=== PATIENT | male | born 1955 | race American Indian/Alaskan Native ===

== ENCOUNTER 2016-07-19 03:38 | Inpatient (IN) | payer MEDICARE ==
[2016-07-19] MEDS ORDERED: MORPHINE IV ONE (04:50)
[2016-07-19] MEDS ORDERED: BABY ASPIRIN PO ONE (04:51)
[2016-07-19] MEDS ORDERED: PROVENTIL IH ONE (04:52)
[2016-07-19] MEDS ORDERED: ATROVENT IH ONE ×2 (04:54)
[2016-07-19 05:18] LABS: Hematocrit 35.4 % (35.5-45.6); Hemoglobin 11.7 gm/dl (11.8-15.2); Mean Corpuscular HGB Conc 33 % (32-34); Mean Corpuscular Hemoglobin 28 pg (28-32); Mean Corpuscular Volume 86 fl (84-94); Platelet Count 128 K/mm3 (140-440); Red Blood Count 4.11 M/mm3 (3.65-5.03); Red Cell Distribution Width 19.5 % (13.2-15.2); White Blood Count 4.9 K/mm3 (4.5-11.0)
[2016-07-19 05:34] LABS: INR 3.99 (0.87-1.13); Partial Thromboplastin Time 44.3 Sec. (24.2-36.6)
[2016-07-19 05:35] LABS: Creatine Kinase MB 1.1 ng/mL (0.0-4.0)
[2016-07-19 05:37] LABS: Anion Gap 17 mmol/L; BUN/Creatinine Ratio 9.09; Blood Urea Nitrogen 10 mg/dL (9-20); Calcium 7.9 mg/dL (8.4-10.2); Carbon Dioxide 26 mmol/L (22-30); Chloride 94.6 mmol/L (98-107); Glucose 108 mg/dL (75-100); Potassium 3.3 mmol/L (3.6-5.0); Sodium 134 mmol/L (137-145)
[2016-07-19] MEDS ORDERED: LASIX IV ONE (06:46)
[2016-07-19] MEDS ORDERED: MAGNESIUM SULFATE 2GM/50ML 50 ML IV ONE (06:46)
[2016-07-19] MEDS ORDERED: NITROSTAT SL ONE (06:50)
[2016-07-19] MEDS ORDERED: SUBLIMAZE IV ONE (06:50)
--- NOTE | 2016-07-19 06:50 | Emergency Department Report ---
HPI - General Chief Complaint: Dyspnea/Respdistress Time Seen by Provider: 07/19/16 06:22 - HPI HPI: The patient is a 61-year-old male with a significant history of STEMI, COPD, and CHF with defibrillator placement, who presents for evaluation of chest pain or dyspnea. The patient reports constant and severe dyspnea since last night at 11 PM, exacerbated with lying flat or attempted physical activity, and associated with pressure-like midsternal chest pain, 10 out of 10 in severity, also constant since approximately 6 hours prior to my evaluation. The patient denies fever, productive cough, syncope, hemoptysis, unilateral leg swelling, recent immobilization, recent cancer. ED Past Medical Hx - Past Medical History Hx Hypertension: Yes Hx Heart Attack/AMI: Yes (2011) Hx Congestive Heart Failure: Yes Hx Diabetes: Yes Hx Deep Vein Thrombosis: Yes Hx Pulmonary Embolism: Yes Hx Liver Disease: No Hx Renal Disease: No Hx Arthritis: Yes Hx Headaches / Migraines: Yes Hx Seizures: No Hx Asthma: Yes Hx COPD: Yes Hx HIV: No Additional medical history: a-fib. HLD. GOUT. ICD - Surgical History Hx Coronary Stent: Yes (2012) Hx Open Heart Surgery: No Hx Pacemaker: Yes Hx Internal Defibrillator: Yes Hx Cholecystectomy: No Hx Appendectomy: No Hx Breast Surgery: No Additional Surgical History: spinal surgery - Social History Smoking Status: Never Smoker Substance Use Type: None - Medications Home Medications: Home Medications Medication Instructions Recorded Confirmed Last Taken Type Albuterol *Only Ed* [Proventil 2.5 mg IH Q4H PRN #1 nebu 08/15/14 01/27/16 Rx 0.5% NEBS] 2.5 MG Allopurinol [Zyloprim] 300 mg PO QDAY #30 tablet 08/15/14 01/27/16 12/09/15 Rx 300 MG Furosemide [Lasix] 40 mg PO DAILY #20 tablet 08/15/14 01/27/16 12/09/15 Rx 40 MG Ipratropium/Albuterol Sulfate 1 ampul IH TIDRT #1 ampul.neb 08/15/14 01/27/16 Rx [Duoneb 0.5 mg-3 mg/3 ml Soln] 1 AMPUL Digoxin 250 mcg PO DAILY 12/31/14 01/27/16 12/09/15 History 250 MCG Fluticasone/Salmeterol [Advair 1 puff IH BID #1 disk.w.dev 02/10/15 01/27/16 Rx Diskus 500-50 mcg] 1 PUFF Carvedilol [Coreg] 25 mg PO BID 03/13/15 01/27/16 12/09/15 History 25 MG Losartan [Cozaar] 100 mg PO QDAY 03/13/15 01/27/16 12/09/15 History 100 MG hydrALAZINE [Apresoline TAB] 25 mg PO BID 03/13/15 01/27/16 12/09/15 History 25 MG Prednisone [predniSONE 10 mg 10 mg PO DAILY 01/27/16 01/27/16 Unknown History (6-Day Pack, 21 Tabs)] Rivaroxaban [Xarelto] 20 mg PO QDAY 01/27/16 01/27/16 Unknown History ISOSORBIDE MONOnitrate [Imdur ER] 60 mg PO QDAY #30 tab.er.24h 02/01/16 Unknown Rx oxyCODONE /ACETAMINOPHEN [Percocet 1 tab PO Q12H PRN #10 tablet 02/01/16 Unknown Rx 5/325 mg] traMADol [Ultram 50 MG tab] 50 mg PO Q6HR PRN #20 tablet 05/21/16 Unknown Rx ED Review of Systems ROS: Stated complaint: KAYLAN Other details as noted in HPI Constitutional: denies: fever ENT: denies: throat or neck pain Respiratory: reports cough, shortness of breath Cardiovascular: reports chest pain Endocrine: denies unexplained weight loss or gain Gastrointestinal: denies: abdominal pain, nausea Genitourinary: denies: dysuria Musculoskeletal: denies: leg swelling Skin: denies: rash Neurological: denies: headache Hematological/Lymphatic: denies: easy bleeding or easy bruising Psych: denies sadness or hopelessness Physical Exam - Physical Exam Vital Signs: Vital Signs 07/19/16 07/19/16 07/19/16 04:16 05:01 06:08 Temperature 99.1 F Pulse Rate 90 Pulse Rate [ 70 Throughout] Respiratory 19 Rate Respiratory 20 Rate [ Throughout] Blood Pressure 145/82 O2 Sat by Pulse 93 Oximetry 07/19/16 06:09 Temperature Pulse Rate Pulse Rate [ 73 Throughout] Respiratory Rate Respiratory 20 Rate [ Throughout] Blood Pressure O2 Sat by Pulse Oximetry Physical Exam: General: well-nourished, well-developed, no acute distress Head: Normocephalic, atraumatic Eyes: normal sclera ENT: Mucous membranes are pink and moist Neck: trachea midline, neck supple, No neck stiffness, no cervical adenopathy Respiratory: Diminished breath sounds and wheezing present throughout lung ortega, crackles present to buy basilar lung ortega, mild costal retractions, not in respiratory distress at this time Cardio: S1 and S2 present, no murmurs, rubs, gallops, capillary refill is brisk Abdomen: Normoactive bowel sounds, soft abdomen, no rigidity, no guarding or rebound tenderness Musc: 1+ pitting edema of bilateral legs present Skin: No rash Neuro: no facial drooping, normal speech Psych: Normal affect ED Course Vital Signs 07/19/16 07/19/16 07/19/16 04:16 05:01 06:08 Temperature 99.1 F Pulse Rate 90 Pulse Rate [ 70 Throughout] Respiratory 19 Rate Respiratory 20 Rate [ Throughout] Blood Pressure 145/82 O2 Sat by Pulse 93 Oximetry 07/19/16 06:09 Temperature Pulse Rate Pulse Rate [ 73 Throughout] Respiratory Rate Respiratory 20 Rate [ Throughout] Blood Pressure O2 Sat by Pulse Oximetry ED Medical Decision Making - Lab Data Result diagrams: 07/19/16 04:52 07/19/16 04:52 - Medical Decision Making The patient was seen and examined by myself. The patient is placed on a cardiac tech and continuous pulse ox. On initial evaluation, the patient was found to be in no distress. Evaluation orders were placed. The patient is given a breathing treatment, IV site measuring, and IV magnesium for txt of COPD. the patient is given IV fentanyl for treatment of his chest pain. Chest x -ray exhibits cardiomegaly and mild pulmonary vessel congestion, and otherwise is negative for focal consolidation, pneumothorax, or other acute emergent cardio pulmonary disease process at this time. Lab results reveals elevated PT/ INR greater than 3, mild hypokalemia at 3.3, elevated BNP 2734, and otherwise labs are grossly not concerning. The patient is given IV Lasix for treatment of his acute on chronic CHF exacerbation. The on-call hospitalist service was contacted. They agreed to admit the patient for further treatment and close monitoring. The ED admit order was placed. The patient was admitted in guarded condition. Critical care attestation.: If time is entered above; I have spent that time in minutes in the direct care of this critically ill patient, excluding procedure time. ED Disposition Clinical Impression: Acute on chronic systolic CHF (congestive heart failure), Acute exacerbation of chronic obstructive pulmonary disease, Elevated INR, Hypokalemia Disposition: OP ADMITTED IP TO THIS HOSP Is pt being admited?: Yes Does the pt Need Aspirin: Yes Condition: Stable Instructions: Chronic Obstructive Pulmonary Disease (ED) Referrals: PRIMARY CARE, [Primary Care Provider] - 3-5 Days Time of Disposition: 06:39
[2016-07-19 07:14] LABS: Basophils % (Manual) 0 % (0.0-1.8); Blastocytes % (Manual) 0 %; Eosinophils % (Manual) 0 % (0.0-4.3)
[2016-07-19 07:15] LABS: Anisocytosis 1+; Diff Status Complete; Platelet Estimate Appears Decreased
--- NOTE | 2016-07-19 07:54 | Admit Criteria Form ---
Admission Criteria Documentation: HEART FAILURE: COMMON COMPLICATIONS Clinical Indications for Inpatient Care (Place 'X' for any and all applicable criteria): Ongoing inpatient care may be indicated for heart failure with ANY ONE of the following (1)(2)(3)(4)(5): [ ]I. Ongoing need for care for primary condition requiring frequent therapy adjustments because of changes in cardiac function (eg, drug dosage changes for drugs that are renally metabolized) [ ]II. New-onset heart failure [ ]III. Heart failure with decreased urine output not responsive to attempts to optimize volume status [ ]IV. Acute cardiac ischemia causing or associated with failure [X ]V. Complications of heart failure, including ANY ONE of the following: [ ]a) Pericardial effusion [ ]b) Symptomatic pleural effusion [ ]c) O2 saturation <90% or PO2 < 60 mm Hg (8.0 kPa) on room air or require baseline supplemental O2 [ ]d) Tachypnea [ X]e) Dyspnea [ ]f) Syncope [ ]g) Change in mental status [ ]h) Acute renal insufficiency that is severe (reduction of more than 50% in estimated glomerular filtration rate from baseline) or progressive reduction of more than 25% in estimated glomerular filtration rate from baseline, with creatinine continuing to rise) [ ]i) Hemodynamic instability [ ]j) Anasarca [ ]k) Clinically significant metabolic abnormalities due to heart failure (eg, new-onset metabolic acidosis) Extended stay beyond goal length of stay for primary condition may be needed until ALL of the following are present(1)(3): [ ]a) Stable and effective diuretic regimen established (or patient on stable dialysis regimen if in chronic renal failure) [ ]b) Breathing comfortably at rest [ ]c) Saturation of arterial oxygen greater than 90% or at acceptable baseline [ ]d) Pulmonary edema absent or improved [ ]e) Hemodynamic stability [ ]f) Volume status acceptable on oral medication [ ]g) Peripheral or sacral edema absent or improved [ ]h) Renal function stable and manageable at a lower level of care [ ]i) Complications (eg, pleural effusion) resolved or manageable at a lower level of care [ ]j) Patient or caregiver has received written discharge instructions or educational material addressing activity level, diet, discharge medications, follow-up appointment, weight monitoring, and what to do if symptoms worsen The original [email or web address] content created by [employer] has been revised. The portions of the content which have been revised are identified through the use of italic text or in bold, and [facility] has neither reviewed nor approved the modified material.All other unmodified content is copyright [facility]. Please see references footnoted in the original [facility] edition 2016 Admission Criteria Met: Yes
--- NOTE | 2016-07-19 08:11 | History and Physical Report ---
History of Present Illness Date of examination: 07/19/16 Date of admission: 07/19/16 Chief complaint: Worsening shortness of breath and chest pain 2-3 days History of present illness: Very pleasant 61-year-old -Turk[place] male patient well known to our services multiple admissions in the past it significant past medical history of coronary artery disease COPD congestive heart failure status post permanent pacemaker follows with [facility] presented to the emergency room with worsening shortness of breath and chest pain of 2-3 days duration Complains of mild orthopnea denies paroxysmal nocturnal dyspnea, grates chest pain between 4-5/10 at its peak at the time of my evaluation patient denies chest pain Patient claims complains of this medication and diet Recently went to Dr. Bruce Serrano who recommended interrogation of ICD on August 04 First set of cardiac enzymes negative,Is elevated proBNP Past History Past Medical History: CAD, COPD, DVT (history of DVT and pulmonary embolism), heart failure (systolic dysfunction), other (history of DVT) Past Surgical History: Other (status post ICD) Social history: lives with family, full code. denies: smoking, alcohol abuse, prescription drug abuse Family history: hypertension Medications and Allergies Allergies Allergy/AdvReac Type Severity Reaction Status Date / Time Penicillins Allergy Unknown Verified 02/07/14 22:58 Home Medications Medication Instructions Recorded Confirmed Last Taken Type Albuterol *Only Ed* [Proventil 2.5 mg IH Q4H PRN #1 nebu 08/15/14 01/27/16 Rx 0.5% NEBS] 2.5 MG Allopurinol [Zyloprim] 300 mg PO QDAY #30 tablet 08/15/14 01/27/16 12/09/15 Rx 300 MG Furosemide [Lasix] 40 mg PO DAILY #20 tablet 08/15/14 01/27/16 12/09/15 Rx 40 MG Ipratropium/Albuterol Sulfate 1 ampul IH TIDRT #1 ampul.neb 08/15/14 01/27/16 Rx [Duoneb 0.5 mg-3 mg/3 ml Soln] 1 AMPUL Digoxin 250 mcg PO DAILY 12/31/14 01/27/16 12/09/15 History 250 MCG Fluticasone/Salmeterol [Advair 1 puff IH BID #1 disk.w.dev 02/10/15 01/27/16 Rx Diskus 500-50 mcg] 1 PUFF Carvedilol [Coreg] 25 mg PO BID 03/13/15 01/27/16 12/09/15 History 25 MG Losartan [Cozaar] 100 mg PO QDAY 03/13/15 01/27/16 12/09/15 History 100 MG hydrALAZINE [Apresoline TAB] 25 mg PO BID 03/13/15 01/27/16 12/09/15 History 25 MG Prednisone [predniSONE 10 mg 10 mg PO DAILY 01/27/16 01/27/16 Unknown History (6-Day Pack, 21 Tabs)] Rivaroxaban [Xarelto] 20 mg PO QDAY 01/27/16 01/27/16 Unknown History ISOSORBIDE MONOnitrate [Imdur ER] 60 mg PO QDAY #30 tab.er.24h 02/01/16 Unknown Rx oxyCODONE /ACETAMINOPHEN [Percocet 1 tab PO Q12H PRN #10 tablet 02/01/16 Unknown Rx 5/325 mg] traMADol [Ultram 50 MG tab] 50 mg PO Q6HR PRN #20 tablet 05/21/16 Unknown Rx Review of Systems Constitutional: no weight loss, no weight gain, no fever, no chills Ears, nose, mouth and throat: no nasal congestion, no nasal discharge Cardiovascular: chest pain, orthopnea, shortness of breath, no palpitations, no paroxysmal nocturnal dyspnea Respiratory: shortness of breath, no cough with sputum Gastrointestinal: no abdominal pain, no nausea, no vomiting Musculoskeletal: no myalgias, no arthritis Integumentary: no rash, no lesions Neurological: weakness, no seizures, no syncope Psychiatric: no anxiety, no depression Endocrine: no cold intolerance, no heat intolerance Hematologic/Lymphatic: no easy bruising, no easy bleeding Allergic/Immunologic: no urticaria, no allergic rhinitis Exam - Constitutional Vitals: Temp Pulse Resp BP Pulse Ox 99.1 F 73 20 145/82 93 07/19/16 04:16 07/19/16 06:09 07/19/16 06:09 07/19/16 04:16 07/19/16 04:16 General appearance: Present: no acute distress, well-nourished - EENT Eyes: Present: PERRL, EOM intact - Neck Neck: Present: supple, normal ROM - Respiratory Respiratory effort: normal Respiratory: bilateral: diminished, rales, negative: rhonchi, wheezing - Cardiovascular Rhythm: regular Heart Sounds: Present: S1 & S2 - Extremities Extremities: no ischemia, pulses intact, pulses symmetrical Extremity abnormal: edema Peripheral Pulses: within normal limits - Abdominal General gastrointestinal: Present: soft, non-tender, non-distended, normal bowel sounds - Integumentary Integumentary: Present: clear, warm - Musculoskeletal Musculoskeletal: strength equal bilaterally - Psychiatric Psychiatric: appropriate mood/affect, cooperative - Neurologic Neurologic: CNII-XII intact, moves all extremities Results - Labs CBC & Chem 7: 07/19/16 04:52 07/19/16 04:52 Labs: Abnormal lab results 07/19/16 07/19/16 07/19/16 Range/Units 04:52 04:52 04:52 Hgb 11.7 L (11.8-15.2) gm/dl Hct 35.4 L (35.5-45.6) % RDW 19.5 H (13.2-15.2) % Plt Count 128 L (140-440) K/mm3 Seg Neuts % (Manual) 90.0 H (40.0-70.0) % Lymphocytes % (Manual) 3.0 L (13.4-35.0) % Lymphocytes # (Manual) 0.1 L (1.2-5.4) K/mm3 PT 39.3 H (12.2-14.9) Sec. INR 3.99 H (0.87-1.13) APTT 44.3 H (24.2-36.6) Sec. Sodium 134 L (137-145) mmol/L Potassium 3.3 L (3.6-5.0) mmol/L Chloride 94.6 L (98-107) mmol/L Glucose 108 H (75-100) mg/dL Calcium 7.9 L (8.4-10.2) mg/dL NT-Pro-B Natriuret Pep (0-900) pg/mL 07/19/16 Range/Units 04:52 Hgb (11.8-15.2) gm/dl Hct (35.5-45.6) % RDW (13.2-15.2) % Plt Count (140-440) K/mm3 Seg Neuts % (Manual) (40.0-70.0) % Lymphocytes % (Manual) (13.4-35.0) % Lymphocytes # (Manual) (1.2-5.4) K/mm3 PT (12.2-14.9) Sec. INR (0.87-1.13) APTT (24.2-36.6) Sec. Sodium (137-145) mmol/L Potassium (3.6-5.0) mmol/L Chloride (98-107) mmol/L Glucose (75-100) mg/dL Calcium (8.4-10.2) mg/dL NT-Pro-B Natriuret Pep 2734 H (0-900) pg/mL Assessment and Plan --Acute on chronic systolic congestive heart failure Manage with IV diuretics, beta blockers, daniella inhibitors, nitrates Input-output monitoring, cardiology evaluation if no improvement about management --Atypical chest pain Probably secondary to exacerbation of congestive heart failure, patient had recent negative heart cath Closely monitor, consider cardiology evaluation if needed, resume appropriate home cardiac medications --Status post ICD Functional, patient has an appointment for interrogation in the office --History of atrial fibrillation Rate controlled continue beta blockers and digoxin On chronic anticoagulation with his --Hypokalemia Replenish per protocol and monitor levels check magnesium --Patient has supratherapeutic INR No evidence of external bleeding closely monitor Hold Xeralto and resume when INR is therapeutic --History of COPD; Well compensated, oxygen, nebulizers and supportive care --DVT prophylaxis SCDs, patient is already on Xarelto --CODE STATUS; full code Consider cardiology evaluation if no improvement Plan of care discussed with the patient his nurse Medical records reviewed Disposition possible discharge in 1-2 days if stable Outpatient follow-up with Dr. Bruce Serrano for ICD interrogation[patient already has an appointment]
[2016-07-19 08:28] LABS: Urine Drugs of Abuse Note Disclamer
[2016-07-19] MEDS ORDERED: PROVENTIL IH PRN (08:56)
[2016-07-19 09:08] LABS: Bacteria,Urine 1+ /HPF (Negative); Bilirubin,Urine NEG (Negative); Blood,Urine SM (Negative); Ketones,Urine NEG (Negative); Leukocyte Esterase,Urine MOD (Negative); Mucus,Urine FEW /HPF; Nitrite,Urine NEG (Negative)
[2016-07-19] MEDS ORDERED: COREG ONE (09:54)
[2016-07-19] MEDS ORDERED: NON-FORMULARY (Losartan [Cozaar] 100 MG) PO SCH (10:00)
[2016-07-19] MEDS: LANOXIN PO SCH (10:01)
[2016-07-19] MEDS: APRESOLINE PO SCH ×2 (10:01→21:08)
[2016-07-19] MEDS: COREG PO SCH ×2 (10:01→21:07)
--- NOTE | 2016-07-19 11:10 | XRay Report ---
PORTABLE CHEST: INDICATION: Shortness of breath. COMPARISON: 05/19/2016 FINDINGS: Portable, frontal chest radiographs, 2 images, again suggests mild cardiomegaly, slight aortic knob calcifications and left AICD with dual-chamber leads. Horizontal mild right midlung atelectasis now seen with resolved right lower lung atelectasis and possible slight layering pleural fluid. EKG leads. Unremarkable bones. CONCLUSION: Overall, interval radiographic improvement of the lung bases with stable mild cardiomegaly, AICD and mild right midlung atelectasis now noted, as described. Thank you for the opportunity to participate in this patient's care.
[2016-07-19] MEDS: COZAAR PO SCH (12:33)
[2016-07-19] MEDS: ZYLOPRIM PO SCH (12:34)
[2016-07-19] MEDS: IMDUR PO SCH (12:34)
[2016-07-19] MEDS: PERCOCET 5/325 PO PRN (12:38)
[2016-07-19] MEDS: DUONEB 0.5 MG-3 MG/3 ML SOLN IH SCH ×2 (14:38→19:18)
[2016-07-19] MEDS: LASIX IV SCH (17:49)
[2016-07-19 18:01] LABS: Creatine Kinase MB 2.3 ng/mL (0.0-4.0)
[2016-07-19 18:03] LABS: Creatine Kinase 161 units/L (55-170)
[2016-07-19] MEDS: BROVANA NEBU IH SCH (19:19)
[2016-07-19] MEDS: PULMICORT IH SCH (19:19)
[2016-07-19] MEDS ORDERED: PULMICORT 0.5 MG, BROVANA NEBU 15 MCG IH SCH (20:00)
[2016-07-19] MEDS: ULTRAM PO PRN (20:07)
[2016-07-20] MEDS: PERCOCET 5/325 PO PRN ×2 (00:27→13:33)
[2016-07-20] MEDS: ROBITUSSIN DM PO PRN ×3 (00:37→21:41)
[2016-07-20] MEDS: PROVENTIL IH PRN ×3 (02:56→18:05)
[2016-07-20 06:18] LABS: Basophils % (Auto) 0.1 % (0.0-1.8); Hematocrit 33.6 % (35.5-45.6); Hemoglobin 10.8 gm/dl (11.8-15.2); Mean Corpuscular HGB Conc 32 % (32-34); Mean Corpuscular Hemoglobin 28 pg (28-32); Mean Corpuscular Volume 87 fl (84-94); Platelet Count 136 K/mm3 (140-440); Red Blood Count 3.87 M/mm3 (3.65-5.03); Red Cell Distribution Width 19.2 % (13.2-15.2); White Blood Count 6.6 K/mm3 (4.5-11.0)
[2016-07-20 06:28] LABS: Blood Urea Nitrogen 21 mg/dL (9-20); Calcium 7.9 mg/dL (8.4-10.2); Carbon Dioxide 34 mmol/L (22-30); Chloride 97.7 mmol/L (98-107); Glucose 120 mg/dL (75-100); Magnesium 1.9 mg/dL (1.7-2.3); Potassium 4.2 mmol/L (3.6-5.0); Sodium 138 mmol/L (137-145)
[2016-07-20] MEDS: ULTRAM PO PRN ×2 (06:29→21:39)
[2016-07-20] MEDS: LASIX IV SCH ×2 (06:30→17:57)
[2016-07-20 06:31] LABS: Anion Gap 11 mmol/L
[2016-07-20 06:32] LABS: INR 1.73 (0.87-1.13)
[2016-07-20 06:33] LABS: Partial Thromboplastin Time 36.4 Sec. (24.2-36.6)
[2016-07-20] MEDS: DUONEB 0.5 MG-3 MG/3 ML SOLN IH SCH ×4 (06:52→21:42)
[2016-07-20] MEDS: PULMICORT IH SCH ×2 (07:37→20:15)
[2016-07-20] MEDS: BROVANA NEBU IH SCH ×2 (07:37→20:15)
[2016-07-20] MEDS: LANOXIN PO SCH (10:53)
[2016-07-20] MEDS: ZYLOPRIM PO SCH (10:53)
[2016-07-20] MEDS: APRESOLINE PO SCH ×2 (10:53→21:40)
[2016-07-20] MEDS: COREG PO SCH ×2 (10:54→21:39)
[2016-07-20] MEDS: COZAAR PO SCH (10:54)
[2016-07-20] MEDS: IMDUR PO SCH (10:58)
--- NOTE | 2016-07-20 19:15 | Progress Note ---
Assessment and Plan Assessment and plan: 1. Acute respiratory failure Secondary to combination of acute exacerbation of heart failure and COPD Treating underlying conditions (see below discussions) 2. Acute exacerbation of systolic heart failure Known with severe systolic heart failure, last EF 25-30% per echo January 2016 Status post AICD placement; scheduled for pacemaker interrogation on 08/04/2016 Dr. Bruce Serrano On nitrates, beta robert, WOLFGANG inhibitor, afterload reducing agent, digoxin and diuretic (iv lasix) 3. Acute exacerbation COPD On inhaled bronchodilators, supplemental oxygen 4. CAD On beta robert, nitrate and WOLFGANG inhibitor Anticoagulated Not on statin 5. Coagulopathy INR 3.99 on admission and Xarelto held Recheck INR 5. History of DVT/PE Anticoagulated with Xarelto 6. Hypokalemia Replaced Resolved 7. Drug use UDS positive for marijuana Counseled regarding importance of quitting 8. DVT prophylaxis Anticoagulated with Xarelto History Interval history: c/o SOB, difficulty breathing Hospitalist Physical - Constitutional Vitals: Temp Pulse Resp BP Pulse Ox 97.4 F L 65 20 109/63 97 07/20/16 15:29 07/20/16 18:15 07/20/16 18:15 07/20/16 15:29 07/20/16 15:29 General appearance: Present: no acute distress - EENT Eyes: Present: PERRL, EOM intact. Absent: scleral icterus, conjunctival injection - Neck Neck: Present: supple, normal ROM. Absent: masses or JVD - Respiratory Respiratory effort: normal (at rest) Respiratory: bilateral: diminished, rales, negative: wheezing - Cardiovascular Rhythm: regular (paced) - Extremities Extremities: no ischemia Extremity abnormal: edema (1+) - Abdominal General gastrointestinal: soft, non-tender, non-distended, normal bowel sounds - Integumentary Integumentary: Present: warm, dry. Absent: jaundice, rash - Psychiatric Psychiatric: cooperative - Neurologic Neurologic: CNII-XII intact, no focal deficits Results - Labs CBC & Chem 7: 07/20/16 05:21 07/22/16 07:28 Labs: Laboratory Last Values WBC 6.6 K/mm3 (4.5-11.0) 07/20/16 05:21 RBC 3.87 M/mm3 (3.65-5.03) 07/20/16 05:21 Hgb 10.8 gm/dl (11.8-15.2) L 07/20/16 05:21 Hct 33.6 % (35.5-45.6) L 07/20/16 05:21 MCV 87 fl (84-94) 07/20/16 05:21 MCH 28 pg (28-32) 07/20/16 05:21 MCHC 32 % (32-34) 07/20/16 05:21 RDW 19.2 % (13.2-15.2) H 07/20/16 05:21 Plt Count 136 K/mm3 (140-440) L 07/20/16 05:21 Lymph % (Auto) 6.6 % (13.4-35.0) L 07/20/16 05:21 Gage % (Auto) 8.2 % (0.0-7.3) H 07/20/16 05:21 Eos % (Auto) 0.0 % (0.0-4.3) 07/20/16 05:21 Baso % (Auto) 0.1 % (0.0-1.8) 07/20/16 05:21 Lymph # 0.4 K/mm3 (1.2-5.4) L 07/20/16 05:21 Gage # 0.5 K/mm3 (0.0-0.8) 07/20/16 05:21 Eos # 0.0 K/mm3 (0.0-0.4) 07/20/16 05:21 Baso # 0.0 K/mm3 (0.0-0.1) 07/20/16 05:21 Add Manual Diff Complete 07/19/16 04:52 Total Counted 100 07/19/16 04:52 Seg Neutrophils % 85.1 % (40.0-70.0) H 07/20/16 05:21 Seg Neuts % (Manual) 90.0 % (40.0-70.0) H 07/19/16 04:52 Band Neutrophils % 0 % 07/19/16 04:52 Lymphocytes % (Manual) 3.0 % (13.4-35.0) L 07/19/16 04:52 Reactive Lymphs % (Man) 0 % 07/19/16 04:52 Monocytes % (Manual) 7.0 % (0.0-7.3) 07/19/16 04:52 Eosinophils % (Manual) 0 % (0.0-4.3) 07/19/16 04:52 Basophils % (Manual) 0 % (0.0-1.8) 07/19/16 04:52 Metamyelocytes % 0 % 07/19/16 04:52 Myelocytes % 0 % 07/19/16 04:52 Promyelocytes % 0 % 07/19/16 04:52 Blast Cells % 0 % 07/19/16 04:52 Nucleated RBC % Not Reportable 07/19/16 04:52 Seg Neutrophils # 5.6 K/mm3 (1.8-7.7) 07/20/16 05:21 Seg Neutrophils # Man 4.4 K/mm3 (1.8-7.7) 07/19/16 04:52 Band Neutrophils # 0.0 K/mm3 07/19/16 04:52 Lymphocytes # (Manual) 0.1 K/mm3 (1.2-5.4) L 07/19/16 04:52 Abs React Lymphs (Man) 0.0 K/mm3 07/19/16 04:52 Monocytes # (Manual) 0.3 K/mm3 (0.0-0.8) 07/19/16 04:52 Eosinophils # (Manual) 0.0 K/mm3 (0.0-0.4) 07/19/16 04:52 Basophils # (Manual) 0.0 K/mm3 (0.0-0.1) 07/19/16 04:52 Metamyelocytes # 0.0 K/mm3 07/19/16 04:52 Myelocytes # 0.0 K/mm3 07/19/16 04:52 Promyelocytes # 0.0 K/mm3 07/19/16 04:52 Blast Cells # 0.0 K/mm3 07/19/16 04:52 WBC Morphology Not Reportable 07/19/16 04:52 Hypersegmented Neuts Not Reportable 07/19/16 04:52 Hyposegmented Neuts Not Reportable 07/19/16 04:52 Hypogranular Neuts Not Reportable 07/19/16 04:52 Smudge Cells Not Reportable 07/19/16 04:52 Toxic Granulation Not Reportable 07/19/16 04:52 Toxic Vacuolation Not Reportable 07/19/16 04:52 Dohle Bodies Not Reportable 07/19/16 04:52 Pelger-Huet Anomaly Not Reportable 07/19/16 04:52 Marcell Rods Not Reportable 07/19/16 04:52 Platelet Estimate Appears decreased 07/19/16 04:52 Clumped Platelets Not Reportable 07/19/16 04:52 Plt Clumps, EDTA Not Reportable 07/19/16 04:52 Large Platelets Not Reportable 07/19/16 04:52 Giant Platelets Not Reportable 07/19/16 04:52 Platelet Satelliting Not Reportable 07/19/16 04:52 Plt Morphology Comment Not Reportable 07/19/16 04:52 RBC Morphology Not Reportable 07/19/16 04:52 Dimorphic RBCs Not Reportable 07/19/16 04:52 Polychromasia Not Reportable 07/19/16 04:52 Hypochromasia Not Reportable 07/19/16 04:52 Poikilocytosis Not Reportable 07/19/16 04:52 Anisocytosis 1+ 07/19/16 04:52 Microcytosis Not Reportable 07/19/16 04:52 Macrocytosis Not Reportable 07/19/16 04:52 Spherocytes Not Reportable 07/19/16 04:52 Pappenheimer Bodies Not Reportable 07/19/16 04:52 Sickle Cells Not Reportable 07/19/16 04:52 Target Cells Not Reportable 07/19/16 04:52 Tear Drop Cells Not Reportable 07/19/16 04:52 Ovalocytes Not Reportable 07/19/16 04:52 Helmet Cells Not Reportable 07/19/16 04:52 Caballero-[place] Bodies Not Reportable 07/19/16 04:52 [place] Rings Not Reportable 07/19/16 04:52 Kayla Cells Not Reportable 07/19/16 04:52 Bite Cells Not Reportable 07/19/16 04:52 Crenated Cell Not Reportable 07/19/16 04:52 Elliptocytes Not Reportable 07/19/16 04:52 Acanthocytes (Spur) Not Reportable 07/19/16 04:52 Rouleaux Not Reportable 07/19/16 04:52 Hemoglobin C Crystals Not Reportable 07/19/16 04:52 Schistocytes Not Reportable 07/19/16 04:52 Malaria parasites Not Reportable 07/19/16 04:52 Miky Bodies Not Reportable 07/19/16 04:52 Hem Pathologist Commnt No 07/19/16 04:52 PT 20.2 Sec. (12.2-14.9) H 07/20/16 05:21 INR 1.73 (0.87-1.13) H 07/20/16 05:21 APTT 36.4 Sec. (24.2-36.6) 07/20/16 05:21 Sodium 138 mmol/L (137-145) 07/20/16 05:21 Potassium 4.2 mmol/L (3.6-5.0) D 07/20/16 05:21 Chloride 97.7 mmol/L (98-107) L 07/20/16 05:21 Carbon Dioxide 34 mmol/L (22-30) H D 07/20/16 05:21 Anion Gap 11 mmol/L 07/20/16 05:21 BUN 21 mg/dL (9-20) H 07/20/16 05:21 Creatinine 1.2 mg/dL (0.8-1.5) 07/20/16 05:21 Estimated GFR > 60 ml/min 07/20/16 05:21 BUN/Creatinine Ratio 17.50 % 07/20/16 05:21 Glucose 120 mg/dL (75-100) H 07/20/16 05:21 Calcium 7.9 mg/dL (8.4-10.2) L 07/20/16 05:21 Magnesium 1.9 mg/dL (1.7-2.3) 07/20/16 05:21 Total Creatine Kinase 161 units/L (55-170) 07/19/16 16:59 CK-MB (CK-2) 2.3 ng/mL (0.0-4.0) 07/19/16 16:59 CK-MB (CK-2) Rel Index 1.4 (0-4) 07/19/16 16:59 Troponin T < 0.010 ng/mL (0.00-0.029) 07/19/16 16:59 NT-Pro-B Natriuret Pep 2734 pg/mL (0-900) H 07/19/16 04:52 Urine Color Yellow (Yellow) 07/19/16 08:10 Urine Turbidity Clear (Clear) 07/19/16 08:10 Urine pH 6.0 (5.0-7.0) 07/19/16 08:10 Ur Specific Silt 1.014 (1.003-1.030) 07/19/16 08:10 Urine Protein 30 mg/dl mg/dL (Negative) 07/19/16 08:10 Urine Glucose (UA) Neg mg/dL (Negative) 07/19/16 08:10 Urine Ketones Neg mg/dL (Negative) 07/19/16 08:10 Urine Blood Sm (Negative) 07/19/16 08:10 Urine Nitrite Neg (Negative) 07/19/16 08:10 Urine Bilirubin Neg (Negative) 07/19/16 08:10 Urine Urobilinogen 4.0 mg/dL (<2.0) 07/19/16 08:10 Ur Leukocyte Esterase Mod (Negative) 07/19/16 08:10 Urine WBC (Auto) 3.0 /HPF (0.0-6.0) 07/19/16 08:10 Urine RBC (Auto) 5.0 /HPF (0.0-6.0) 07/19/16 08:10 U Epithel Cells (Auto) 2.0 /HPF (0-13.0) 07/19/16 08:10 Urine Bacteria (Auto) 1+ /HPF (Negative) 07/19/16 08:10 Hyaline Casts 1 /LPF 07/19/16 08:10 Urine Mucus Few /HPF 07/19/16 08:10 Urine Opiates Screen Presumptive negative 07/19/16 08:10 Urine Methadone Screen Presumptive negative 07/19/16 08:10 Ur Barbiturates Screen Presumptive negative 07/19/16 08:10 Ur Phencyclidine Scrn Presumptive negative 07/19/16 08:10 Ur Amphetamines Screen Presumptive negative 07/19/16 08:10 U Benzodiazepines Scrn Presumptive negative 07/19/16 08:10 Urine Cocaine Screen Presumptive negative 07/19/16 08:10 U Marijuana (THC) Screen Presumptive positive 07/19/16 08:10 Drugs of Abuse Note Disclamer 07/19/16 08:10 - Imaging and Cardiology Chest x-ray: image reviewed (improved compared with previous one)
[2016-07-21] MEDS: PROVENTIL IH PRN (00:18)
[2016-07-21] MEDS ORDERED: LASIX IV ONE (01:01)
[2016-07-21] MEDS: PERCOCET 5/325 PO PRN ×3 (01:11→21:38)
[2016-07-21] MEDS: LASIX IV SCH (06:10)
[2016-07-21] MEDS: ULTRAM PO PRN ×2 (06:11→16:42)
[2016-07-21] MEDS: ROBITUSSIN DM PO PRN ×2 (06:13→21:37)
[2016-07-21] MEDS: PULMICORT IH SCH ×2 (07:35→19:29)
[2016-07-21] MEDS: BROVANA NEBU IH SCH ×2 (07:36→19:28)
[2016-07-21] MEDS: DUONEB 0.5 MG-3 MG/3 ML SOLN IH SCH ×3 (07:48→21:00)
[2016-07-21] MEDS: APRESOLINE PO SCH ×2 (09:40→21:39)
[2016-07-21] MEDS: COREG PO SCH ×2 (09:41→21:39)
[2016-07-21] MEDS: LANOXIN PO SCH (09:41)
[2016-07-21] MEDS: COZAAR PO SCH (09:41)
[2016-07-21] MEDS: IMDUR PO SCH (09:41)
[2016-07-21] MEDS: ZYLOPRIM PO SCH (09:42)
--- NOTE | 2016-07-21 18:44 | Progress Note ---
Assessment and Plan Assessment and plan: 1. Acute respiratory failure Secondary to combination of acute exacerbation of heart failure and COPD Treating underlying conditions (see below discussions) Placed on BiPAP 2. Acute exacerbation of systolic heart failure Known with severe systolic heart failure, last EF 25-30% per echo January 2016 Status post AICD placement; scheduled for pacemaker interrogation on 08/04/2016 Dr. Bruce Serrano On nitrates, beta robert, WOLFGANG inhibitor, afterload reducing agent, digoxin and diuretic 3. Acute exacerbation COPD On inhaled bronchodilators, supplemental oxygen and BiPAP 4. CAD On beta robert, nitrate and WOLFGANG inhibitor Anticoagulated Not on statin 5. Coagulopathy INR 3.99 on admission and Xarelto held; today 1.73 5. History of DVT/PE Anticoagulated with Xarelto 6. Hypokalemia Replaced, resolved 7. Drug use UDS positive for marijuana Counseled regarding importance of quitting 8. DVT prophylaxis Anticoagulated with Xarelto History Interval history: SOB worsened, difficulty breathing, on BiPAP Hospitalist Physical - Constitutional Vitals: Temp Pulse Resp BP Pulse Ox 97.8 F 84 20 111/68 93 07/21/16 16:53 07/21/16 18:15 07/21/16 16:53 07/21/16 16:53 07/21/16 16:53 General appearance: Present: mild distress - EENT Eyes: Present: PERRL, EOM intact. Absent: scleral icterus, conjunctival injection - Neck Neck: Present: supple, normal ROM. Absent: masses or JVD - Respiratory Respiratory effort: labored Respiratory: bilateral: diminished, rales, negative: wheezing - Cardiovascular Rhythm: other (paced) Heart Sounds: Present: S1 & S2. Absent: systolic murmur - Extremities Extremities: no ischemia Extremity abnormal: edema - Abdominal General gastrointestinal: soft, non-tender, non-distended, normal bowel sounds - Integumentary Integumentary: Present: warm, dry. Absent: jaundice, rash - Psychiatric Psychiatric: cooperative - Neurologic Neurologic: CNII-XII intact, no focal deficits Results - Labs CBC & Chem 7: 07/20/16 05:21 07/22/16 07:28 Labs: Laboratory Last Values WBC 6.6 K/mm3 (4.5-11.0) 07/20/16 05:21 RBC 3.87 M/mm3 (3.65-5.03) 07/20/16 05:21 Hgb 10.8 gm/dl (11.8-15.2) L 07/20/16 05:21 Hct 33.6 % (35.5-45.6) L 07/20/16 05:21 MCV 87 fl (84-94) 07/20/16 05:21 MCH 28 pg (28-32) 07/20/16 05:21 MCHC 32 % (32-34) 07/20/16 05:21 RDW 19.2 % (13.2-15.2) H 07/20/16 05:21 Plt Count 136 K/mm3 (140-440) L 07/20/16 05:21 Lymph % (Auto) 6.6 % (13.4-35.0) L 07/20/16 05:21 [place] % (Auto) 8.2 % (0.0-7.3) H 07/20/16 05:21 Eos % (Auto) 0.0 % (0.0-4.3) 07/20/16 05:21 Baso % (Auto) 0.1 % (0.0-1.8) 07/20/16 05:21 Lymph # 0.4 K/mm3 (1.2-5.4) L 07/20/16 05:21 [place] # 0.5 K/mm3 (0.0-0.8) 07/20/16 05:21 Eos # 0.0 K/mm3 (0.0-0.4) 07/20/16 05:21 Baso # 0.0 K/mm3 (0.0-0.1) 07/20/16 05:21 Add Manual Diff Complete 07/19/16 04:52 Total Counted 100 07/19/16 04:52 Seg Neutrophils % 85.1 % (40.0-70.0) H 07/20/16 05:21 Seg Neuts % (Manual) 90.0 % (40.0-70.0) H 07/19/16 04:52 Band Neutrophils % 0 % 07/19/16 04:52 Lymphocytes % (Manual) 3.0 % (13.4-35.0) L 07/19/16 04:52 Reactive Lymphs % (Man) 0 % 07/19/16 04:52 Monocytes % (Manual) 7.0 % (0.0-7.3) 07/19/16 04:52 Eosinophils % (Manual) 0 % (0.0-4.3) 07/19/16 04:52 Basophils % (Manual) 0 % (0.0-1.8) 07/19/16 04:52 Metamyelocytes % 0 % 07/19/16 04:52 Myelocytes % 0 % 07/19/16 04:52 Promyelocytes % 0 % 07/19/16 04:52 Blast Cells % 0 % 07/19/16 04:52 Nucleated RBC % Not Reportable 07/19/16 04:52 Seg Neutrophils # 5.6 K/mm3 (1.8-7.7) 07/20/16 05:21 Seg Neutrophils # Man 4.4 K/mm3 (1.8-7.7) 07/19/16 04:52 Band Neutrophils # 0.0 K/mm3 07/19/16 04:52 Lymphocytes # (Manual) 0.1 K/mm3 (1.2-5.4) L 07/19/16 04:52 Abs React Lymphs (Man) 0.0 K/mm3 07/19/16 04:52 Monocytes # (Manual) 0.3 K/mm3 (0.0-0.8) 07/19/16 04:52 Eosinophils # (Manual) 0.0 K/mm3 (0.0-0.4) 07/19/16 04:52 Basophils # (Manual) 0.0 K/mm3 (0.0-0.1) 07/19/16 04:52 Metamyelocytes # 0.0 K/mm3 07/19/16 04:52 Myelocytes # 0.0 K/mm3 07/19/16 04:52 Promyelocytes # 0.0 K/mm3 07/19/16 04:52 Blast Cells # 0.0 K/mm3 07/19/16 04:52 WBC Morphology Not Reportable 07/19/16 04:52 Hypersegmented Neuts Not Reportable 07/19/16 04:52 Hyposegmented Neuts Not Reportable 07/19/16 04:52 Hypogranular Neuts Not Reportable 07/19/16 04:52 Smudge Cells Not Reportable 07/19/16 04:52 Toxic Granulation Not Reportable 07/19/16 04:52 Toxic Vacuolation Not Reportable 07/19/16 04:52 Dohle Bodies Not Reportable 07/19/16 04:52 Pelger-Huet Anomaly Not Reportable 07/19/16 04:52 Marcell Rods Not Reportable 07/19/16 04:52 Platelet Estimate Appears decreased 07/19/16 04:52 Clumped Platelets Not Reportable 07/19/16 04:52 Plt Clumps, EDTA Not Reportable 07/19/16 04:52 Large Platelets Not Reportable 07/19/16 04:52 Giant Platelets Not Reportable 07/19/16 04:52 Platelet Satelliting Not Reportable 07/19/16 04:52 Plt Morphology Comment Not Reportable 07/19/16 04:52 RBC Morphology Not Reportable 07/19/16 04:52 Dimorphic RBCs Not Reportable 07/19/16 04:52 Polychromasia Not Reportable 07/19/16 04:52 Hypochromasia Not Reportable 07/19/16 04:52 Poikilocytosis Not Reportable 07/19/16 04:52 Anisocytosis 1+ 07/19/16 04:52 Microcytosis Not Reportable 07/19/16 04:52 Macrocytosis Not Reportable 07/19/16 04:52 Spherocytes Not Reportable 07/19/16 04:52 Pappenheimer Bodies Not Reportable 07/19/16 04:52 Sickle Cells Not Reportable 07/19/16 04:52 Target Cells Not Reportable 07/19/16 04:52 Tear Drop Cells Not Reportable 07/19/16 04:52 Ovalocytes Not Reportable 07/19/16 04:52 Helmet Cells Not Reportable 07/19/16 04:52 Caball[place] Bodies Not Reportable 07/19/16 04:52 [place] Rings Not Reportable 07/19/16 04:52 Kayla Cells Not Reportable 07/19/16 04:52 Bite Cells Not Reportable 07/19/16 04:52 Crenated Cell Not Reportable 07/19/16 04:52 Elliptocytes Not Reportable 07/19/16 04:52 Acanthocytes (Spur) Not Reportable 07/19/16 04:52 Rouleaux Not Reportable 07/19/16 04:52 Hemoglobin C Crystals Not Reportable 07/19/16 04:52 Schistocytes Not Reportable 07/19/16 04:52 Malaria parasites Not Reportable 07/19/16 04:52 Miky Bodies Not Reportable 07/19/16 04:52 Hem Pathologist Commnt No 07/19/16 04:52 PT 20.2 Sec. (12.2-14.9) H 07/20/16 05:21 INR 1.73 (0.87-1.13) H 07/20/16 05:21 APTT 36.4 Sec. (24.2-36.6) 07/20/16 05:21 Sodium 138 mmol/L (137-145) 07/20/16 05:21 Potassium 4.2 mmol/L (3.6-5.0) D 07/20/16 05:21 Chloride 97.7 mmol/L (98-107) L 07/20/16 05:21 Carbon Dioxide 34 mmol/L (22-30) H D 07/20/16 05:21 Anion Gap 11 mmol/L 07/20/16 05:21 BUN 21 mg/dL (9-20) H 07/20/16 05:21 Creatinine 1.2 mg/dL (0.8-1.5) 07/20/16 05:21 Estimated GFR > 60 ml/min 07/20/16 05:21 BUN/Creatinine Ratio 17.50 % 07/20/16 05:21 Glucose 120 mg/dL (75-100) H 07/20/16 05:21 Calcium 7.9 mg/dL (8.4-10.2) L 07/20/16 05:21 Magnesium 1.9 mg/dL (1.7-2.3) 07/20/16 05:21 Total Creatine Kinase 161 units/L (55-170) 07/19/16 16:59 CK-MB (CK-2) 2.3 ng/mL (0.0-4.0) 07/19/16 16:59 CK-MB (CK-2) Rel Index 1.4 (0-4) 07/19/16 16:59 Troponin T < 0.010 ng/mL (0.00-0.029) 07/19/16 16:59 NT-Pro-B Natriuret Pep 2734 pg/mL (0-900) H 07/19/16 04:52 Urine Color Yellow (Yellow) 07/19/16 08:10 Urine Turbidity Clear (Clear) 07/19/16 08:10 Urine pH 6.0 (5.0-7.0) 07/19/16 08:10 Ur Specific [place] 1.014 (1.003-1.030) 07/19/16 08:10 Urine Protein 30 mg/dl mg/dL (Negative) 07/19/16 08:10 Urine Glucose (UA) Neg mg/dL (Negative) 07/19/16 08:10 Urine Ketones Neg mg/dL (Negative) 07/19/16 08:10 Urine Blood Sm (Negative) 07/19/16 08:10 Urine Nitrite Neg (Negative) 07/19/16 08:10 Urine Bilirubin Neg (Negative) 07/19/16 08:10 Urine Urobilinogen 4.0 mg/dL (<2.0) 07/19/16 08:10 Ur Leukocyte Esterase Mod (Negative) 07/19/16 08:10 Urine WBC (Auto) 3.0 /HPF (0.0-6.0) 07/19/16 08:10 Urine RBC (Auto) 5.0 /HPF (0.0-6.0) 07/19/16 08:10 U Epithel Cells (Auto) 2.0 /HPF (0-13.0) 07/19/16 08:10 Urine Bacteria (Auto) 1+ /HPF (Negative) 07/19/16 08:10 Hyaline Casts 1 /LPF 07/19/16 08:10 Urine Mucus Few /HPF 07/19/16 08:10 Urine Opiates Screen Presumptive negative 07/19/16 08:10 Urine Methadone Screen Presumptive negative 07/19/16 08:10 Ur Barbiturates Screen Presumptive negative 07/19/16 08:10 Ur Phencyclidine Scrn Presumptive negative 07/19/16 08:10 Ur Amphetamines Screen Presumptive negative 07/19/16 08:10 U Benzodiazepines Scrn Presumptive negative 07/19/16 08:10 Urine Cocaine Screen Presumptive negative 07/19/16 08:10 U Marijuana (THC) Screen Presumptive positive 07/19/16 08:10 Drugs of Abuse Note Disclamer 07/19/16 08:10
[2016-07-22] MEDS: PROVENTIL IH PRN (01:15)
[2016-07-22 08:08] LABS: Anion Gap 15 mmol/L; BUN/Creatinine Ratio 23.33; Blood Urea Nitrogen 28 mg/dL (9-20); Calcium 7.5 mg/dL (8.4-10.2); Carbon Dioxide 31 mmol/L (22-30); Chloride 94.4 mmol/L (98-107); Glucose 91 mg/dL (75-100); Potassium 4.2 mmol/L (3.6-5.0); Sodium 136 mmol/L (137-145)
[2016-07-22] MEDS: BROVANA NEBU IH SCH ×2 (08:15→19:44)
[2016-07-22] MEDS: PULMICORT IH SCH ×2 (08:15→19:45)
[2016-07-22] MEDS: DUONEB 0.5 MG-3 MG/3 ML SOLN IH SCH ×3 (08:18→21:08)
[2016-07-22] MEDS: LASIX PO SCH ×2 (08:48→09:28)
[2016-07-22] MEDS: ZYLOPRIM PO SCH ×2 (08:48→11:29)
[2016-07-22] MEDS: ROBITUSSIN DM PO PRN ×2 (08:48→18:36)
[2016-07-22] MEDS: LANOXIN PO SCH ×2 (08:48→09:28)
[2016-07-22] MEDS: COREG PO SCH ×3 (08:49→21:21)
[2016-07-22] MEDS: PERCOCET 5/325 PO PRN ×2 (08:50→21:24)
[2016-07-22] MEDS: IMDUR PO SCH (10:00)
[2016-07-22] MEDS: COZAAR PO SCH (10:00)
[2016-07-22] MEDS: APRESOLINE PO SCH ×2 (10:00→21:21)
[2016-07-22] MEDS: ULTRAM PO PRN (18:36)
--- NOTE | 2016-07-22 20:28 | Progress Note ---
Assessment and Plan Assessment and plan: 1. Acute respiratory failure Secondary to combination of acute exacerbation of heart failure and COPD Treating underlying conditions (see below discussions) Placed on BiPAP 2. Acute exacerbation of systolic heart failure Known with severe systolic heart failure, last EF 25-30% per echo January 2016 Status post AICD placement; scheduled for pacemaker interrogation on 08/04/2016 Dr. Bruce Serrano On nitrates, beta robert, WOLFGANG inhibitor, afterload reducing agent, digoxin and diuretic 3. Acute exacerbation COPD On inhaled bronchodilators, supplemental oxygen and BiPAP 4. CAD On beta robert, nitrate and WOLFGANG inhibitor Anticoagulated Not on statin 5. Coagulopathy INR 3.99 on admission and Xarelto held Now resolved 5. History of DVT/PE Anticoagulated with Xarelto 6. Hypokalemia Replaced, resolved 7. Drug use UDS positive for marijuana Counseled regarding importance of quitting 8. DVT prophylaxis Anticoagulated with Xarelto History Interval history: Overnight on nasal cannula, this morning found in respiratory distress and placed back on BiPAP Hospitalist Physical - Constitutional Vitals: Temp Pulse Resp BP Pulse Ox 98.3 F 70 17 114/64 97 07/22/16 18:19 07/22/16 19:45 07/22/16 19:45 07/22/16 18:19 07/22/16 19:23 General appearance: Present: mild distress, well-nourished - EENT Eyes: Present: PERRL, EOM intact. Absent: scleral icterus, conjunctival injection - Neck Neck: Present: supple, normal ROM. Absent: enlarged thyroid, masses or JVD - Respiratory Respiratory effort: labored Respiratory: bilateral: diminished, rales, wheezing - Cardiovascular Rhythm: other (paced) Heart Sounds: Present: S1 & S2. Absent: systolic murmur - Extremities Extremities: no ischemia Extremity abnormal: edema - Abdominal General gastrointestinal: soft, non-tender, non-distended, normal bowel sounds - Integumentary Integumentary: Present: warm, dry. Absent: jaundice, rash - Psychiatric Psychiatric: cooperative - Neurologic Neurologic: CNII-XII intact, no focal deficits Results - Labs CBC & Chem 7: 07/20/16 05:21 07/22/16 07:28 Labs: Laboratory Last Values WBC 6.6 K/mm3 (4.5-11.0) 07/20/16 05:21 RBC 3.87 M/mm3 (3.65-5.03) 07/20/16 05:21 Hgb 10.8 gm/dl (11.8-15.2) L 07/20/16 05:21 Hct 33.6 % (35.5-45.6) L 07/20/16 05:21 MCV 87 fl (84-94) 07/20/16 05:21 MCH 28 pg (28-32) 07/20/16 05:21 MCHC 32 % (32-34) 07/20/16 05:21 RDW 19.2 % (13.2-15.2) H 07/20/16 05:21 Plt Count 136 K/mm3 (140-440) L 07/20/16 05:21 Lymph % (Auto) 6.6 % (13.4-35.0) L 07/20/16 05:21 [place] % (Auto) 8.2 % (0.0-7.3) H 07/20/16 05:21 Eos % (Auto) 0.0 % (0.0-4.3) 07/20/16 05:21 Baso % (Auto) 0.1 % (0.0-1.8) 07/20/16 05:21 Lymph # 0.4 K/mm3 (1.2-5.4) L 07/20/16 05:21 [place] # 0.5 K/mm3 (0.0-0.8) 07/20/16 05:21 Eos # 0.0 K/mm3 (0.0-0.4) 07/20/16 05:21 Baso # 0.0 K/mm3 (0.0-0.1) 07/20/16 05:21 Add Manual Diff Complete 07/19/16 04:52 Total Counted 100 07/19/16 04:52 Seg Neutrophils % 85.1 % (40.0-70.0) H 07/20/16 05:21 Seg Neuts % (Manual) 90.0 % (40.0-70.0) H 07/19/16 04:52 Band Neutrophils % 0 % 07/19/16 04:52 Lymphocytes % (Manual) 3.0 % (13.4-35.0) L 07/19/16 04:52 Reactive Lymphs % (Man) 0 % 07/19/16 04:52 Monocytes % (Manual) 7.0 % (0.0-7.3) 07/19/16 04:52 Eosinophils % (Manual) 0 % (0.0-4.3) 07/19/16 04:52 Basophils % (Manual) 0 % (0.0-1.8) 07/19/16 04:52 Metamyelocytes % 0 % 07/19/16 04:52 Myelocytes % 0 % 07/19/16 04:52 Promyelocytes % 0 % 07/19/16 04:52 Blast Cells % 0 % 07/19/16 04:52 Nucleated RBC % Not Reportable 07/19/16 04:52 Seg Neutrophils # 5.6 K/mm3 (1.8-7.7) 07/20/16 05:21 Seg Neutrophils # Man 4.4 K/mm3 (1.8-7.7) 07/19/16 04:52 Band Neutrophils # 0.0 K/mm3 07/19/16 04:52 Lymphocytes # (Manual) 0.1 K/mm3 (1.2-5.4) L 07/19/16 04:52 Abs React Lymphs (Man) 0.0 K/mm3 07/19/16 04:52 Monocytes # (Manual) 0.3 K/mm3 (0.0-0.8) 07/19/16 04:52 Eosinophils # (Manual) 0.0 K/mm3 (0.0-0.4) 07/19/16 04:52 Basophils # (Manual) 0.0 K/mm3 (0.0-0.1) 07/19/16 04:52 Metamyelocytes # 0.0 K/mm3 07/19/16 04:52 Myelocytes # 0.0 K/mm3 07/19/16 04:52 Promyelocytes # 0.0 K/mm3 07/19/16 04:52 Blast Cells # 0.0 K/mm3 07/19/16 04:52 WBC Morphology Not Reportable 07/19/16 04:52 Hypersegmented Neuts Not Reportable 07/19/16 04:52 Hyposegmented Neuts Not Reportable 07/19/16 04:52 Hypogranular Neuts Not Reportable 07/19/16 04:52 Smudge Cells Not Reportable 07/19/16 04:52 Toxic Granulation Not Reportable 07/19/16 04:52 Toxic Vacuolation Not Reportable 07/19/16 04:52 Dohle Bodies Not Reportable 07/19/16 04:52 Pelger-Huet Anomaly Not Reportable 07/19/16 04:52 Marcell Rods Not Reportable 07/19/16 04:52 Platelet Estimate Appears decreased 07/19/16 04:52 Clumped Platelets Not Reportable 07/19/16 04:52 Plt Clumps, EDTA Not Reportable 07/19/16 04:52 Large Platelets Not Reportable 07/19/16 04:52 Giant Platelets Not Reportable 07/19/16 04:52 Platelet Satelliting Not Reportable 07/19/16 04:52 Plt Morphology Comment Not Reportable 07/19/16 04:52 RBC Morphology Not Reportable 07/19/16 04:52 Dimorphic RBCs Not Reportable 07/19/16 04:52 Polychromasia Not Reportable 07/19/16 04:52 Hypochromasia Not Reportable 07/19/16 04:52 Poikilocytosis Not Reportable 07/19/16 04:52 Anisocytosis 1+ 07/19/16 04:52 Microcytosis Not Reportable 07/19/16 04:52 Macrocytosis Not Reportable 07/19/16 04:52 Spherocytes Not Reportable 07/19/16 04:52 Pappenheimer Bodies Not Reportable 07/19/16 04:52 Sickle Cells Not Reportable 07/19/16 04:52 Target Cells Not Reportable 07/19/16 04:52 Tear Drop Cells Not Reportable 07/19/16 04:52 Ovalocytes Not Reportable 07/19/16 04:52 Helmet Cells Not Reportable 07/19/16 04:52 [place] Bodies Not Reportable 07/19/16 04:52 [place] Rings Not Reportable 07/19/16 04:52 [place] Cells Not Reportable 07/19/16 04:52 Bite Cells Not Reportable 07/19/16 04:52 Crenated Cell Not Reportable 07/19/16 04:52 Elliptocytes Not Reportable 07/19/16 04:52 Acanthocytes (Spur) Not Reportable 07/19/16 04:52 Rouleaux Not Reportable 07/19/16 04:52 Hemoglobin C Crystals Not Reportable 07/19/16 04:52 Schistocytes Not Reportable 07/19/16 04:52 Malaria parasites Not Reportable 07/19/16 04:52 Miky Bodies Not Reportable 07/19/16 04:52 Hem Pathologist Commnt No 07/19/16 04:52 PT 20.2 Sec. (12.2-14.9) H 07/20/16 05:21 INR 1.73 (0.87-1.13) H 07/20/16 05:21 APTT 36.4 Sec. (24.2-36.6) 07/20/16 05:21 Sodium 138 mmol/L (137-145) 07/20/16 05:21 Potassium 4.2 mmol/L (3.6-5.0) D 07/20/16 05:21 Chloride 97.7 mmol/L (98-107) L 07/20/16 05:21 Carbon Dioxide 31 mmol/L (22-30) H 07/22/16 07:28 Anion Gap 11 mmol/L 07/20/16 05:21 BUN 28 mg/dL (9-20) H 07/22/16 07:28 Creatinine 1.2 mg/dL (0.8-1.5) 07/22/16 07:28 Estimated GFR > 60 ml/min 07/22/16 07:28 BUN/Creatinine Ratio 23.33 % 07/22/16 07:28 Glucose 91 mg/dL (75-100) 07/22/16 07:28 Calcium 7.5 mg/dL (8.4-10.2) L 07/22/16 07:28 Magnesium 1.9 mg/dL (1.7-2.3) 07/20/16 05:21 Total Creatine Kinase 161 units/L (55-170) 07/19/16 16:59 CK-MB (CK-2) 2.3 ng/mL (0.0-4.0) 07/19/16 16:59 CK-MB (CK-2) Rel Index 1.4 (0-4) 07/19/16 16:59 Troponin T < 0.010 ng/mL (0.00-0.029) 07/19/16 16:59 NT-Pro-B Natriuret Pep 2734 pg/mL (0-900) H 07/19/16 04:52 Urine Color Yellow (Yellow) 07/19/16 08:10 Urine Turbidity Clear (Clear) 07/19/16 08:10 Urine pH 6.0 (5.0-7.0) 07/19/16 08:10 Ur Specific [place] 1.014 (1.003-1.030) 07/19/16 08:10 Urine Protein 30 mg/dl mg/dL (Negative) 07/19/16 08:10 Urine Glucose (UA) Neg mg/dL (Negative) 07/19/16 08:10 Urine Ketones Neg mg/dL (Negative) 07/19/16 08:10 Urine Blood Sm (Negative) 07/19/16 08:10 Urine Nitrite Neg (Negative) 07/19/16 08:10 Urine Bilirubin Neg (Negative) 07/19/16 08:10 Urine Urobilinogen 4.0 mg/dL (<2.0) 07/19/16 08:10 Ur Leukocyte Esterase Mod (Negative) 07/19/16 08:10 Urine WBC (Auto) 3.0 /HPF (0.0-6.0) 07/19/16 08:10 Urine RBC (Auto) 5.0 /HPF (0.0-6.0) 07/19/16 08:10 U Epithel Cells (Auto) 2.0 /HPF (0-13.0) 07/19/16 08:10 Urine Bacteria (Auto) 1+ /HPF (Negative) 07/19/16 08:10 Hyaline Casts 1 /LPF 07/19/16 08:10 Urine Mucus Few /HPF 07/19/16 08:10 Urine Opiates Screen Presumptive negative 07/19/16 08:10 Urine Methadone Screen Presumptive negative 07/19/16 08:10 Ur Barbiturates Screen Presumptive negative 07/19/16 08:10 Ur Phencyclidine Scrn Presumptive negative 07/19/16 08:10 Ur Amphetamines Screen Presumptive negative 07/19/16 08:10 U Benzodiazepines Scrn Presumptive negative 07/19/16 08:10 Urine Cocaine Screen Presumptive negative 07/19/16 08:10 U Marijuana (THC) Screen Presumptive positive 07/19/16 08:10 Drugs of Abuse Note Disclamer 07/19/16 08:10 - Imaging and Cardiology Chest x-ray: pending
[2016-07-23] MEDS: BROVANA NEBU IH SCH ×2 (08:05→20:02)
[2016-07-23] MEDS: PULMICORT IH SCH ×2 (08:05→20:02)
[2016-07-23] MEDS: DUONEB 0.5 MG-3 MG/3 ML SOLN IH SCH ×3 (08:07→20:02)
[2016-07-23] MEDS: IMDUR PO SCH (10:00)
[2016-07-23] MEDS: APRESOLINE PO SCH ×2 (10:00→22:29)
[2016-07-23] MEDS: COZAAR PO SCH (10:00)
[2016-07-23] MEDS: LANOXIN PO SCH (10:00)
[2016-07-23] MEDS: LASIX PO SCH (10:01)
[2016-07-23] MEDS: COREG PO SCH ×2 (10:01→22:29)
[2016-07-23] MEDS: ZYLOPRIM PO SCH (10:01)
[2016-07-23] MEDS: PERCOCET 5/325 PO PRN ×2 (10:01→19:56)
--- NOTE | 2016-07-23 11:14 | XRay Report ---
ROUTINE CHEST, TWO VIEWS: HISTORY: Respiratory distress. Moderate cardiomegaly, mild pulmonary venous congestion and small left pleural effusion are identified. The lungs are clear. 2-lead pacemaker devices unchanged since the exam 3 days ago. IMPRESSION: Mild CHF.
[2016-07-23] MEDS ORDERED: LASIX IV ONE (11:52)
--- NOTE | 2016-07-23 13:41 | Progress Note ---
Assessment and Plan Assessment and plan: 1. Acute respiratory failure Secondary to combination of acute exacerbation of heart failure and COPD Treating underlying conditions (see below discussions) On continuous BiPAP Check ABG 2. Acute exacerbation of systolic heart failure Known with severe systolic heart failure, last EF 25-30% per echo January 2016 Status post AICD placement; scheduled for pacemaker interrogation on 08/04/2016 Dr. Bruce Serrano On nitrates, beta robert, WOLFGANG inhibitor, afterload reducing agent, digoxin and diuretic Change Lasix to IV and increase dose Consult cardiology for further recommendations 3. Acute exacerbation COPD Start IV corticosteroids, along with inhaled bronchodilators, supplemental oxygen and continues BiPAP 4. CAD On beta robert, nitrate and WOLFGANG inhibitor Anticoagulated Not on statin, will discuss with cardiology 5. Coagulopathy INR 3.99 on admission Xarelto held Now resolved 5. History of DVT/PE Anticoagulated with Xarelto 6. Hypokalemia Replaced, resolved 7. Drug use UDS positive for marijuana Counseled regarding importance of quitting 8. DVT prophylaxis Anticoagulated with Xarelto History Interval history: increased work of breathing despite being on BIPAP continuously Hospitalist Physical - Constitutional Vitals: Temp Pulse Resp BP Pulse Ox 97.5 F L 70 20 110/59 100 07/23/16 11:14 07/23/16 13:10 07/23/16 12:55 07/23/16 11:14 07/23/16 11:14 General appearance: Present: mild distress - EENT Eyes: Present: PERRL, EOM intact. Absent: scleral icterus, conjunctival injection - Neck Neck: Present: supple. Absent: enlarged thyroid, masses or JVD - Respiratory Respiratory effort: labored Respiratory: bilateral: diminished, rales, wheezing - Cardiovascular Rhythm: other (paced) Heart Sounds: Present: S1 & S2. Absent: systolic murmur - Extremities Extremities: no ischemia Extremity abnormal: edema (1+) - Abdominal General gastrointestinal: soft, non-tender, non-distended, normal bowel sounds - Integumentary Integumentary: Present: warm, dry. Absent: jaundice, rash - Psychiatric Psychiatric: cooperative - Neurologic Neurologic: CNII-XII intact, no focal deficits Results - Labs CBC & Chem 7: 07/20/16 05:21 07/22/16 07:28 Labs: Laboratory Last Values WBC 6.6 K/mm3 (4.5-11.0) 07/20/16 05:21 RBC 3.87 M/mm3 (3.65-5.03) 07/20/16 05:21 Hgb 10.8 gm/dl (11.8-15.2) L 07/20/16 05:21 Hct 33.6 % (35.5-45.6) L 07/20/16 05:21 MCV 87 fl (84-94) 07/20/16 05:21 MCH 28 pg (28-32) 07/20/16 05:21 MCHC 32 % (32-34) 07/20/16 05:21 RDW 19.2 % (13.2-15.2) H 07/20/16 05:21 Plt Count 136 K/mm3 (140-440) L 07/20/16 05:21 Lymph % (Auto) 6.6 % (13.4-35.0) L 07/20/16 05:21 [place] % (Auto) 8.2 % (0.0-7.3) H 07/20/16 05:21 Eos % (Auto) 0.0 % (0.0-4.3) 07/20/16 05:21 Baso % (Auto) 0.1 % (0.0-1.8) 07/20/16 05:21 Lymph # 0.4 K/mm3 (1.2-5.4) L 07/20/16 05:21 [place] # 0.5 K/mm3 (0.0-0.8) 07/20/16 05:21 Eos # 0.0 K/mm3 (0.0-0.4) 07/20/16 05:21 Baso # 0.0 K/mm3 (0.0-0.1) 07/20/16 05:21 Add Manual Diff Complete 07/19/16 04:52 Total Counted 100 07/19/16 04:52 Seg Neutrophils % 85.1 % (40.0-70.0) H 07/20/16 05:21 Seg Neuts % (Manual) 90.0 % (40.0-70.0) H 07/19/16 04:52 Band Neutrophils % 0 % 07/19/16 04:52 Lymphocytes % (Manual) 3.0 % (13.4-35.0) L 07/19/16 04:52 Reactive Lymphs % (Man) 0 % 07/19/16 04:52 Monocytes % (Manual) 7.0 % (0.0-7.3) 07/19/16 04:52 Eosinophils % (Manual) 0 % (0.0-4.3) 07/19/16 04:52 Basophils % (Manual) 0 % (0.0-1.8) 07/19/16 04:52 Metamyelocytes % 0 % 07/19/16 04:52 Myelocytes % 0 % 07/19/16 04:52 Promyelocytes % 0 % 07/19/16 04:52 Blast Cells % 0 % 07/19/16 04:52 Nucleated RBC % Not Reportable 07/19/16 04:52 Seg Neutrophils # 5.6 K/mm3 (1.8-7.7) 07/20/16 05:21 Seg Neutrophils # Man 4.4 K/mm3 (1.8-7.7) 07/19/16 04:52 Band Neutrophils # 0.0 K/mm3 07/19/16 04:52 Lymphocytes # (Manual) 0.1 K/mm3 (1.2-5.4) L 07/19/16 04:52 Abs React Lymphs (Man) 0.0 K/mm3 07/19/16 04:52 Monocytes # (Manual) 0.3 K/mm3 (0.0-0.8) 07/19/16 04:52 Eosinophils # (Manual) 0.0 K/mm3 (0.0-0.4) 07/19/16 04:52 Basophils # (Manual) 0.0 K/mm3 (0.0-0.1) 07/19/16 04:52 Metamyelocytes # 0.0 K/mm3 07/19/16 04:52 Myelocytes # 0.0 K/mm3 07/19/16 04:52 Promyelocytes # 0.0 K/mm3 07/19/16 04:52 Blast Cells # 0.0 K/mm3 07/19/16 04:52 WBC Morphology Not Reportable 07/19/16 04:52 Hypersegmented Neuts Not Reportable 07/19/16 04:52 Hyposegmented Neuts Not Reportable 07/19/16 04:52 Hypogranular Neuts Not Reportable 07/19/16 04:52 Smudge Cells Not Reportable 07/19/16 04:52 Toxic Granulation Not Reportable 07/19/16 04:52 Toxic Vacuolation Not Reportable 07/19/16 04:52 Dohle Bodies Not Reportable 07/19/16 04:52 Pelger-Huet Anomaly Not Reportable 07/19/16 04:52 Marcell Rods Not Reportable 07/19/16 04:52 Platelet Estimate Appears decreased 07/19/16 04:52 Clumped Platelets Not Reportable 07/19/16 04:52 Plt Clumps, EDTA Not Reportable 07/19/16 04:52 Large Platelets Not Reportable 07/19/16 04:52 Giant Platelets Not Reportable 07/19/16 04:52 Platelet Satelliting Not Reportable 07/19/16 04:52 Plt Morphology Comment Not Reportable 07/19/16 04:52 RBC Morphology Not Reportable 07/19/16 04:52 Dimorphic RBCs Not Reportable 07/19/16 04:52 Polychromasia Not Reportable 07/19/16 04:52 Hypochromasia Not Reportable 07/19/16 04:52 Poikilocytosis Not Reportable 07/19/16 04:52 Anisocytosis 1+ 07/19/16 04:52 Microcytosis Not Reportable 07/19/16 04:52 Macrocytosis Not Reportable 07/19/16 04:52 Spherocytes Not Reportable 07/19/16 04:52 Pappenheimer Bodies Not Reportable 07/19/16 04:52 Sickle Cells Not Reportable 07/19/16 04:52 Target Cells Not Reportable 07/19/16 04:52 Tear Drop Cells Not Reportable 07/19/16 04:52 Ovalocytes Not Reportable 07/19/16 04:52 Helmet Cells Not Reportable 07/19/16 04:52 [place]all[place] Bodies Not Reportable 07/19/16 04:52 [place] Rings Not Reportable 07/19/16 04:52 [place] Cells Not Reportable 07/19/16 04:52 Bite Cells Not Reportable 07/19/16 04:52 Crenated Cell Not Reportable 07/19/16 04:52 Elliptocytes Not Reportable 07/19/16 04:52 Acanthocytes (Spur) Not Reportable 07/19/16 04:52 Rouleaux Not Reportable 07/19/16 04:52 Hemoglobin C Crystals Not Reportable 07/19/16 04:52 Schistocytes Not Reportable 07/19/16 04:52 Malaria parasites Not Reportable 07/19/16 04:52 Miky Bodies Not Reportable 07/19/16 04:52 Hem Pathologist Commnt No 07/19/16 04:52 PT 20.2 Sec. (12.2-14.9) H 07/20/16 05:21 INR 1.73 (0.87-1.13) H 07/20/16 05:21 APTT 36.4 Sec. (24.2-36.6) 07/20/16 05:21 Sodium 138 mmol/L (137-145) 07/20/16 05:21 Potassium 4.2 mmol/L (3.6-5.0) D 07/20/16 05:21 Chloride 97.7 mmol/L (98-107) L 07/20/16 05:21 Carbon Dioxide 31 mmol/L (22-30) H 07/22/16 07:28 Anion Gap 11 mmol/L 07/20/16 05:21 BUN 28 mg/dL (9-20) H 07/22/16 07:28 Creatinine 1.2 mg/dL (0.8-1.5) 07/22/16 07:28 Estimated GFR > 60 ml/min 07/22/16 07:28 BUN/Creatinine Ratio 23.33 % 07/22/16 07:28 Glucose 91 mg/dL (75-100) 07/22/16 07:28 Calcium 7.5 mg/dL (8.4-10.2) L 07/22/16 07:28 Magnesium 1.9 mg/dL (1.7-2.3) 07/20/16 05:21 Total Creatine Kinase 161 units/L (55-170) 07/19/16 16:59 CK-MB (CK-2) 2.3 ng/mL (0.0-4.0) 07/19/16 16:59 CK-MB (CK-2) Rel Index 1.4 (0-4) 07/19/16 16:59 Troponin T < 0.010 ng/mL (0.00-0.029) 07/19/16 16:59 NT-Pro-B Natriuret Pep 2734 pg/mL (0-900) H 07/19/16 04:52 Urine Color Yellow (Yellow) 07/19/16 08:10 Urine Turbidity Clear (Clear) 07/19/16 08:10 Urine pH 6.0 (5.0-7.0) 07/19/16 08:10 Ur Specific [place] 1.014 (1.003-1.030) 07/19/16 08:10 Urine Protein 30 mg/dl mg/dL (Negative) 07/19/16 08:10 Urine Glucose (UA) Neg mg/dL (Negative) 07/19/16 08:10 Urine Ketones Neg mg/dL (Negative) 07/19/16 08:10 Urine Blood Sm (Negative) 07/19/16 08:10 Urine Nitrite Neg (Negative) 07/19/16 08:10 Urine Bilirubin Neg (Negative) 07/19/16 08:10 Urine Urobilinogen 4.0 mg/dL (<2.0) 07/19/16 08:10 Ur Leukocyte Esterase Mod (Negative) 07/19/16 08:10 Urine WBC (Auto) 3.0 /HPF (0.0-6.0) 07/19/16 08:10 Urine RBC (Auto) 5.0 /HPF (0.0-6.0) 07/19/16 08:10 U Epithel Cells (Auto) 2.0 /HPF (0-13.0) 07/19/16 08:10 Urine Bacteria (Auto) 1+ /HPF (Negative) 07/19/16 08:10 Hyaline Casts 1 /LPF 07/19/16 08:10 Urine Mucus Few /HPF 07/19/16 08:10 Urine Opiates Screen Presumptive negative 07/19/16 08:10 Urine Methadone Screen Presumptive negative 07/19/16 08:10 Ur Barbiturates Screen Presumptive negative 07/19/16 08:10 Ur Phencyclidine Scrn Presumptive negative 07/19/16 08:10 Ur Amphetamines Screen Presumptive negative 07/19/16 08:10 U Benzodiazepines Scrn Presumptive negative 07/19/16 08:10 Urine Cocaine Screen Presumptive negative 07/19/16 08:10 U Marijuana (THC) Screen Presumptive positive 07/19/16 08:10 Drugs of Abuse Note Disclamer 07/19/16 08:10 - Imaging and Cardiology Chest x-ray: image reviewed (venous congestion, small pleural effusion left)
[2016-07-23] MEDS: XARELTO PO SCH (14:46)
[2016-07-23] MEDS: ROBITUSSIN DM PO PRN ×2 (14:46→20:05)
[2016-07-23] MEDS: ULTRAM PO PRN (14:46)
[2016-07-23 17:33] LABS: ISTAT Base Excess 11; ISTAT HCO3 36.2; ISTAT PH 7.368 (7.35-7.45); ISTAT PO2 60 (80-105); ISTAT SO2 89; ISTAT TCO2 38
[2016-07-23] MEDS: LASIX IV SCH (18:12)
--- NOTE | 2016-07-23 19:39 | Event Note ---
Date: 07/23/16 Cardio note dictated 1.chf 2. Non ischemic cardiomyopathy 3H/O dvt, PE.Afib 4.Copd w/resp failure-on bipap Cont current rx will follow thank you
[2016-07-24] MEDS: ULTRAM PO PRN ×2 (02:40→19:09)
[2016-07-24 05:46] LABS: Hematocrit 35.8 % (35.5-45.6); Hemoglobin 11.4 gm/dl (11.8-15.2); Mean Corpuscular HGB Conc 32 % (32-34); Mean Corpuscular Hemoglobin 28 pg (28-32); Mean Corpuscular Volume 87 fl (84-94); Platelet Count 133 K/mm3 (140-440); Red Blood Count 4.12 M/mm3 (3.65-5.03); Red Cell Distribution Width 18.9 % (13.2-15.2); White Blood Count 6.2 K/mm3 (4.5-11.0)
[2016-07-24 06:07] LABS: BUN/Creatinine Ratio 24.44; Blood Urea Nitrogen 22 mg/dL (9-20); Calcium 8.1 mg/dL (8.4-10.2); Carbon Dioxide 39 mmol/L (22-30); Chloride 93.9 mmol/L (98-107); Glucose 119 mg/dL (75-100); Potassium 4.7 mmol/L (3.6-5.0); Sodium 137 mmol/L (137-145)
[2016-07-24 06:11] LABS: Anion Gap 9 mmol/L
[2016-07-24] MEDS: LASIX IV SCH ×2 (06:35→17:54)
[2016-07-24 06:45] LABS: Anisocytosis 1+; Basophils % (Manual) 0 % (0.0-1.8); Blastocytes % (Manual) 0 %; Diff Status Complete; Eosinophils % (Manual) 0 % (0.0-4.3); Hypochromasia 1+; Platelet Estimate Consistent w Auto; Schistocytes Rare
[2016-07-24] MEDS: PULMICORT IH SCH ×2 (07:24→19:40)
[2016-07-24] MEDS: BROVANA NEBU IH SCH ×2 (07:25→19:40)
[2016-07-24] MEDS: DUONEB 0.5 MG-3 MG/3 ML SOLN IH SCH ×3 (07:25→19:40)
--- NOTE | 2016-07-24 09:19 | Consultation ---
REASON FOR CONSULTATION: Congestive heart failure. HISTORY OF PRESENT ILLNESS: The patient is a 61-year-old gentleman who is well known to me and followed by me in the office, comes into the Emergency Room complaining about worsening difficulty in breathing and has been admitted. The patient is also known to have chronic obstructive pulmonary disease and has been on home oxygen. The patient is known to have a nonischemic cardiomyopathy and he had previous pacemaker insertion. He is known to have chronic atrial fibrillation, peripheral arterial disease, hypertension, and history of pulmonary embolism. Since admission, intermittently, he has been on BiPAP and he has been quite dependent on BiPAP. His last echocardiogram was done in 01/2016 showed an ejection fraction of 25-30%. Cardiac catheterization done in 06/2012 showed an ejection fraction of 10-20%, nonobstructive coronary artery disease was noted. REVIEW OF SYSTEMS: Difficult to obtain system review because of his BiPAP, however; HEAD, EYES, EARS, NOSE, AND THROAT: No symptoms. ENDOCRINE: No history of diabetes. GASTROINTESTINAL: No abdominal pain, nausea, or vomiting. GENITOURINARY: No symptoms. CENTRAL NERVOUS SYSTEM: No symptoms. LOCOMOTOR: No symptoms. PERSONAL HISTORY: Nonsmoker, nonalcoholic. FAMILY HISTORY: Noncontributory. PHYSICAL EXAMINATION: GENERAL: Adult male, well built, well nourished on BiPAP at this time. VITAL SIGNS: Blood pressure is 99/63, pulse ox 98, respiratory rate 20, heart rate 70. HEENT: Unremarkable. NECK: Supple. No thyromegaly. Both carotids are palpable and equal. Neck veins are flat. CHEST: Symmetrical. LUNGS: Prolonged expiratory phase is noted, reduced breath sounds noted in both bases. HEART: S1, S2 are heard well. ABDOMEN: Soft, nontender. No hepatosplenomegaly. EXTREMITIES: No significant edema or calf tenderness. LABORATORY DATA: EKG, pacemaker rhythm. WBC 6.6, hemoglobin 10.8, hematocrit 33.6. INR 1.73. Blood gases: PH 7.368, pCO2 of 63, pO2 60. Potassium 4.2, sodium 138, BUN 21, creatinine 1.2. Cardiac enzymes are negative. Initial BNP was 2734. Chest x-ray, mild failure pattern is noted. CURRENT MEDICATIONS: Reviewed. IMPRESSION: 1. Congestive heart failure. 2. Nonischemic cardiomyopathy. 3. Atrial fibrillation. 4. Congestive heart failure, on chronic oxygen therapy and currently on BiPAP. The patient is seen for cardiac evaluation. Agree with current management. Continue with the current medications. The problem appears to be more related to the pulmonary issues and CO2 retention. Continue current management and we will follow closely with further recommendations. Thank you for allowing me to participate in the care of this gentleman. JOB# [id number] KB/[id number]
[2016-07-24] MEDS: IMDUR PO SCH (09:41)
[2016-07-24] MEDS: XARELTO PO SCH (09:41)
[2016-07-24] MEDS: ZYLOPRIM PO SCH (09:41)
[2016-07-24] MEDS: PERCOCET 5/325 PO PRN ×2 (09:42→21:39)
[2016-07-24] MEDS: APRESOLINE PO SCH ×2 (09:42→21:38)
[2016-07-24] MEDS: LANOXIN PO SCH (09:42)
[2016-07-24] MEDS: COZAAR PO SCH (09:42)
[2016-07-24] MEDS: COREG PO SCH ×2 (09:42→21:41)
--- NOTE | 2016-07-24 10:08 | Progress Note ---
Assessment and Plan Acute on chronic systolic heart failure Echo 01/2016: EF 25-30% continue lasix, coreg, digoxin, losartan, Imdur, hydralazine COPD on home O2 consider pulmonary evaluation Non-ischemic cardiomyopathy, s/p PPM/AICD Echo 01/2016: EF 25-30% Device interrogation 05/17 revealed fractured atrial lead. Per Dr. Serrano, pt is stable to discharge and will readdress as OP. Coronary artery disease [facility] 05/2016: patent left main, LAD, diagonal, circ, OM1 20%, RCA same 40% mid -section of a moderate-severe tortuosity vessel continue ASA, statin Chronic atrial fibrillation continue Xarelto PAD s/p right femoral endarterectomy with angioplasty/stent of right external iliac artery (2014) Hypertension Hyperlipidemia Tobacco use Hx. of PE Agree with current regimen. Continue close monitoring of volume status. Consider pulmonary evaluation. The patient has been seen in conjunction with Dr. Srivastava who agrees with the assessment and plan of care. Subjective Date of service: 07/24/16 Principal diagnosis: heart failure Interval history: The patient is resting in bed. He remains very short of breath with minimal exertion. Paced rhythm on the monitor. Objective Last Vital Signs Temp 97.4 F L 07/24/16 08:45 Pulse 72 07/24/16 09:42 Resp 20 07/24/16 08:45 BP 162/87 07/24/16 08:45 Pulse Ox 100 07/24/16 08:45 - Physical Examination General: No Apparent Distress HEENT: Positive: Normocephaly, Mucus Membranes Moist Neck: Positive: neck supple, trachea midline Cardiac: Positive: Reg Rate and Rhythm, S1/S2 Lungs: Positive: Decreased Breath Sounds Neuro: Positive: Grossly Intact Abdomen: Positive: Soft, Active Bowel Sounds. Negative: Tender Skin: Positive: Clear. Negative: Rash Extremities: Present: normal. Absent: edema - Labs and Meds CBC 07/24/16 Range/Units 05:18 WBC 6.2 (4.5-11.0) K/mm3 RBC 4.12 (3.65-5.03) M/mm3 Hgb 11.4 L (11.8-15.2) gm/dl Hct 35.8 (35.5-45.6) % Plt Count 133 L (140-440) K/mm3 Comprehensive Metabolic Panel 07/24/16 Range/Units 05:18 Sodium 137 (137-145) mmol/L Potassium 4.7 (3.6-5.0) mmol/L Chloride 93.9 L (98-107) mmol/L Carbon Dioxide 39 H D (22-30) mmol/L BUN 22 H (9-20) mg/dL Creatinine 0.9 (0.8-1.5) mg/dL Glucose 119 H (75-100) mg/dL Calcium 8.1 L (8.4-10.2) mg/dL - Imaging and Cardiology Echo: report reviewed - Telemetry EKG Rhythm: Paced
--- NOTE | 2016-07-24 15:17 | Progress Note ---
Assessment and Plan Assessment and plan: 1. Acute hypoxic hypercapnic respiratory failure Secondary to combination of acute exacerbation of heart failure and COPD Treating underlying conditions (see below discussions) BiPAP 2. Acute exacerbation of systolic heart failure Known with severe systolic heart failure, last EF 25-30% per echo January 2016 Status post AICD placement; scheduled for pacemaker interrogation on 08/04/[address] Bruce Serrano On nitrates, beta robert, WOLFGANG inhibitor, afterload reducing agent, digoxin and diuretic (iv lasix) 3. Acute exacerbation COPD Started on IV corticosteroids, along with inhaled bronchodilators, supplemental oxygen and BiPAP 4. CAD On beta robert, nitrate and WOLFGANG inhibitor Anticoagulated Not on statin, will discuss with cardiology 5. Coagulopathy INR 3.99 on admission and Xarelto held Recheck INR 5. History of DVT/PE Anticoagulated with Xarelto Now resolved 6. Hypokalemia Replaced, resolved 7. Drug use UDS positive for marijuana Counseled regarding importance of quitting 8. DVT prophylaxis Anticoagulated with Xarelto History Interval history: slightly better today, off BIpap on NC; seen during pulmonary toileting per RT Hospitalist Physical - Constitutional Vitals: Temp Pulse Resp BP Pulse Ox 97.6 F 70 20 114/58 95 07/24/16 12:35 07/24/16 13:41 07/24/16 13:41 07/24/16 12:35 07/24/16 12:35 General appearance: Present: no acute distress, well-nourished - EENT Eyes: Present: PERRL, EOM intact. Absent: scleral icterus, conjunctival injection - Neck Neck: Present: supple, normal ROM. Absent: masses or JVD - Respiratory Respiratory effort: labored Respiratory: bilateral: diminished, rales, wheezing - Cardiovascular Rhythm: regular Heart Sounds: Present: S1 & S2. Absent: systolic murmur - Extremities Extremities: no ischemia - Abdominal General gastrointestinal: soft, non-tender, non-distended, normal bowel sounds - Integumentary Integumentary: Present: warm, dry. Absent: jaundice, rash - Psychiatric Psychiatric: cooperative - Neurologic Neurologic: CNII-XII intact, no focal deficits Results - Labs CBC & Chem 7: 07/24/16 05:18 07/24/16 05:18 Labs: Laboratory Last Values WBC 6.2 K/mm3 (4.5-11.0) 07/24/16 05:18 RBC 4.12 M/mm3 (3.65-5.03) 07/24/16 05:18 Hgb 11.4 gm/dl (11.8-15.2) L 07/24/16 05:18 Hct 35.8 % (35.5-45.6) 07/24/16 05:18 MCV 87 fl (84-94) 07/24/16 05:18 MCH 28 pg (28-32) 07/24/16 05:18 MCHC 32 % (32-34) 07/24/16 05:18 RDW 18.9 % (13.2-15.2) H 07/24/16 05:18 Plt Count 133 K/mm3 (140-440) L 07/24/16 05:18 Lymph % (Auto) 6.6 % (13.4-35.0) L 07/20/16 05:21 [place] % (Auto) 8.2 % (0.0-7.3) H 07/20/16 05:21 Eos % (Auto) 0.0 % (0.0-4.3) 07/20/16 05:21 Baso % (Auto) 0.1 % (0.0-1.8) 07/20/16 05:21 Lymph # 0.4 K/mm3 (1.2-5.4) L 07/20/16 05:21 [place] # 0.5 K/mm3 (0.0-0.8) 07/20/16 05:21 Eos # 0.0 K/mm3 (0.0-0.4) 07/20/16 05:21 Baso # 0.0 K/mm3 (0.0-0.1) 07/20/16 05:21 Add Manual Diff Complete 07/24/16 05:18 Total Counted 100 07/24/16 05:18 Seg Neutrophils % 85.1 % (40.0-70.0) H 07/20/16 05:21 Seg Neuts % (Manual) 84.0 % (40.0-70.0) H 07/24/16 05:18 Band Neutrophils % 0 % 07/24/16 05:18 Lymphocytes % (Manual) 12.0 % (13.4-35.0) L 07/24/16 05:18 Reactive Lymphs % (Man) 0 % 07/24/16 05:18 Monocytes % (Manual) 4.0 % (0.0-7.3) 07/24/16 05:18 Eosinophils % (Manual) 0 % (0.0-4.3) 07/24/16 05:18 Basophils % (Manual) 0 % (0.0-1.8) 07/24/16 05:18 Metamyelocytes % 0 % 07/24/16 05:18 Myelocytes % 0 % 07/24/16 05:18 Promyelocytes % 0 % 07/24/16 05:18 Blast Cells % 0 % 07/24/16 05:18 Nucleated RBC % Not Reportable 07/24/16 05:18 Seg Neutrophils # 5.6 K/mm3 (1.8-7.7) 07/20/16 05:21 Seg Neutrophils # Man 5.2 K/mm3 (1.8-7.7) 07/24/16 05:18 Band Neutrophils # 0.0 K/mm3 07/24/16 05:18 Lymphocytes # (Manual) 0.7 K/mm3 (1.2-5.4) L 07/24/16 05:18 Abs React Lymphs (Man) 0.0 K/mm3 07/24/16 05:18 Monocytes # (Manual) 0.2 K/mm3 (0.0-0.8) 07/24/16 05:18 Eosinophils # (Manual) 0.0 K/mm3 (0.0-0.4) 07/24/16 05:18 Basophils # (Manual) 0.0 K/mm3 (0.0-0.1) 07/24/16 05:18 Metamyelocytes # 0.0 K/mm3 07/24/16 05:18 Myelocytes # 0.0 K/mm3 07/24/16 05:18 Promyelocytes # 0.0 K/mm3 07/24/16 05:18 Blast Cells # 0.0 K/mm3 07/24/16 05:18 WBC Morphology Not Reportable 07/24/16 05:18 Hypersegmented Neuts Not Reportable 07/24/16 05:18 Hyposegmented Neuts Not Reportable 07/24/16 05:18 Hypogranular Neuts Not Reportable 07/24/16 05:18 Smudge Cells Not Reportable 07/24/16 05:18 Toxic Granulation Not Reportable 07/24/16 05:18 Toxic Vacuolation Not Reportable 07/24/16 05:18 Dohle Bodies Not Reportable 07/24/16 05:18 Pelger-Huet Anomaly Not Reportable 07/24/16 05:18 Marcell Rods Not Reportable 07/24/16 05:18 Platelet Estimate Consistent w auto 07/24/16 05:18 Clumped Platelets Not Reportable 07/24/16 05:18 Plt Clumps, EDTA Not Reportable 07/24/16 05:18 Large Platelets Not Reportable 07/24/16 05:18 Giant Platelets Not Reportable 07/24/16 05:18 Platelet Satelliting Not Reportable 07/24/16 05:18 Plt Morphology Comment Not Reportable 07/24/16 05:18 RBC Morphology Not Reportable 07/24/16 05:18 Dimorphic RBCs Not Reportable 07/24/16 05:18 Polychromasia Not Reportable 07/24/16 05:18 Hypochromasia 1+ 07/24/16 05:18 Poikilocytosis Not Reportable 07/24/16 05:18 Anisocytosis 1+ 07/24/16 05:18 Microcytosis Not Reportable 07/24/16 05:18 Macrocytosis Not Reportable 07/24/16 05:18 Spherocytes Not Reportable 07/24/16 05:18 Pappenheimer Bodies Not Reportable 07/24/16 05:18 Sickle Cells Not Reportable 07/24/16 05:18 Target Cells Not Reportable 07/24/16 05:18 Tear Drop Cells Not Reportable 07/24/16 05:18 Ovalocytes Not Reportable 07/24/16 05:18 Helmet Cells Not Reportable 07/24/16 05:18 Caballero-[place] Bodies Not Reportable 07/24/16 05:18 [place] Rings Not Reportable 07/24/16 05:18 Kayla Cells Not Reportable 07/24/16 05:18 Bite Cells Not Reportable 07/24/16 05:18 Crenated Cell Not Reportable 07/24/16 05:18 Elliptocytes Not Reportable 07/24/16 05:18 Acanthocytes (Spur) Not Reportable 07/24/16 05:18 Rouleaux Not Reportable 07/24/16 05:18 Hemoglobin C Crystals Not Reportable 07/24/16 05:18 Schistocytes Rare 07/24/16 05:18 Malaria parasites Not Reportable 07/24/16 05:18 Miky Bodies Not Reportable 07/24/16 05:18 Hem Pathologist Commnt No 07/24/16 05:18 PT 20.2 Sec. (12.2-14.9) H 07/20/16 05:21 INR 1.73 (0.87-1.13) H 07/20/16 05:21 APTT 36.4 Sec. (24.2-36.6) 07/20/16 05:21 POC ABG pH 7.368 (7.35-7.45) 07/23/16 12:57 POC ABG pCO2 63.0 (35-45) H 07/23/16 12:57 POC ABG pO2 60 (80-105) L 07/23/16 12:57 POC ABG HCO3 36.2 07/23/16 12:57 POC ABG Total CO2 38 07/23/16 12:57 POC ABG O2 Sat 89 07/23/16 12:57 POC ABG Base Excess 11 07/23/16 12:57 FiO2 32 % 07/23/16 12:57 Sodium 137 mmol/L (137-145) 07/24/16 05:18 Potassium 4.7 mmol/L (3.6-5.0) 07/24/16 05:18 Chloride 93.9 mmol/L (98-107) L 07/24/16 05:18 Carbon Dioxide 39 mmol/L (22-30) H D 07/24/16 05:18 Anion Gap 9 mmol/L 07/24/16 05:18 BUN 22 mg/dL (9-20) H 07/24/16 05:18 Creatinine 0.9 mg/dL (0.8-1.5) 07/24/16 05:18 Estimated GFR > 60 ml/min 07/24/16 05:18 BUN/Creatinine Ratio 24.44 % 07/24/16 05:18 Glucose 119 mg/dL (75-100) H 07/24/16 05:18 Calcium 8.1 mg/dL (8.4-10.2) L 07/24/16 05:18 Magnesium 1.9 mg/dL (1.7-2.3) 07/20/16 05:21 Total Creatine Kinase 161 units/L (55-170) 07/19/16 16:59 CK-MB (CK-2) 2.3 ng/mL (0.0-4.0) 07/19/16 16:59 CK-MB (CK-2) Rel Index 1.4 (0-4) 07/19/16 16:59 Troponin T < 0.010 ng/mL (0.00-0.029) 07/19/16 16:59 NT-Pro-B Natriuret Pep 2734 pg/mL (0-900) H 07/19/16 04:52 Urine Color Yellow (Yellow) 07/19/16 08:10 Urine Turbidity Clear (Clear) 07/19/16 08:10 Urine pH 6.0 (5.0-7.0) 07/19/16 08:10 Ur Specific [place] 1.014 (1.003-1.030) 07/19/16 08:10 Urine Protein 30 mg/dl mg/dL (Negative) 07/19/16 08:10 Urine Glucose (UA) Neg mg/dL (Negative) 07/19/16 08:10 Urine Ketones Neg mg/dL (Negative) 07/19/16 08:10 Urine Blood Sm (Negative) 07/19/16 08:10 Urine Nitrite Neg (Negative) 07/19/16 08:10 Urine Bilirubin Neg (Negative) 07/19/16 08:10 Urine Urobilinogen 4.0 mg/dL (<2.0) 07/19/16 08:10 Ur Leukocyte Esterase Mod (Negative) 07/19/16 08:10 Urine WBC (Auto) 3.0 /HPF (0.0-6.0) 07/19/16 08:10 Urine RBC (Auto) 5.0 /HPF (0.0-6.0) 07/19/16 08:10 U Epithel Cells (Auto) 2.0 /HPF (0-13.0) 07/19/16 08:10 Urine Bacteria (Auto) 1+ /HPF (Negative) 07/19/16 08:10 Hyaline Casts 1 /LPF 07/19/16 08:10 Urine Mucus Few /HPF 07/19/16 08:10 Urine Opiates Screen Presumptive negative 07/19/16 08:10 Urine Methadone Screen Presumptive negative 07/19/16 08:10 Ur Barbiturates Screen Presumptive negative 07/19/16 08:10 Ur Phencyclidine Scrn Presumptive negative 07/19/16 08:10 Ur Amphetamines Screen Presumptive negative 07/19/16 08:10 U Benzodiazepines Scrn Presumptive negative 07/19/16 08:10 Urine Cocaine Screen Presumptive negative 07/19/16 08:10 U Marijuana (THC) Screen Presumptive positive 07/19/16 08:10 Drugs of Abuse Note Disclamer 07/19/16 08:10
[2016-07-24] MEDS: PROVENTIL IH PRN (17:48)
[2016-07-24] MEDS: ROBITUSSIN DM PO PRN (19:09)
[2016-07-25] MEDS: ROBITUSSIN DM PO PRN ×2 (01:12→21:32)
[2016-07-25] MEDS: LASIX IV SCH ×2 (06:20→18:15)
[2016-07-25] MEDS: BROVANA NEBU IH SCH ×2 (07:03→20:12)
[2016-07-25] MEDS: PULMICORT IH SCH ×2 (07:03→20:12)
[2016-07-25] MEDS: DUONEB 0.5 MG-3 MG/3 ML SOLN IH SCH ×3 (07:04→20:15)
[2016-07-25] MEDS: COZAAR PO SCH (09:26)
[2016-07-25] MEDS: XARELTO PO SCH (09:27)
[2016-07-25] MEDS: APRESOLINE PO SCH ×2 (09:27→21:21)
[2016-07-25] MEDS: COREG PO SCH ×2 (09:27→21:22)
[2016-07-25] MEDS: IMDUR PO SCH (09:28)
[2016-07-25] MEDS: LANOXIN PO SCH (09:28)
[2016-07-25] MEDS: ZYLOPRIM PO SCH (09:28)
[2016-07-25] MEDS: PERCOCET 5/325 PO PRN ×2 (09:29→21:26)
--- NOTE | 2016-07-25 10:05 | Progress Note ---
Assessment and Plan Acute on chronic systolic heart failure Echo 01/2016: EF 25-30% continue lasix, coreg, digoxin, losartan, Imdur, hydralazine COPD on home O2 consider pulmonary evaluation Non-ischemic cardiomyopathy, s/p PPM/AICD Echo 01/2016: EF 25-30% Device interrogation 05/17 revealed fractured atrial lead. Per Dr. Serrano, pt is stable to discharge and will readdress as OP. Coronary artery disease [facility] 05/2016: patent left main, LAD, diagonal, circ, OM1 20%, RCA same 40% mid -section of a moderate-severe tortuosity vessel continue ASA, statin Chronic atrial fibrillation continue Xarelto PAD s/p right femoral endarterectomy with angioplasty/stent of right external iliac artery (2014) Hypertension Hyperlipidemia Tobacco use Hx. of PE Continue current management and close monitoring of volume status. Consider pulmonary evaluation. The patient has been seen in conjunction with Dr. Srivastava who agrees with the assessment and plan of care. Subjective Date of service: 07/25/16 Principal diagnosis: heart failure Interval history: The patient is resting in bed. He is breathing better today. Paced rhythm on the monitor. Objective Last Vital Signs Temp 97.6 F 07/25/16 08:00 Pulse 69 07/25/16 08:00 Resp 20 07/25/16 08:00 BP 143/85 07/25/16 08:00 Pulse Ox 91 07/25/16 08:00 - Physical Examination General: No Apparent Distress HEENT: Positive: Normocephaly, Mucus Membranes Moist Neck: Positive: neck supple, trachea midline Cardiac: Positive: Reg Rate and Rhythm, S1/S2 Lungs: Positive: Wheezes, Rhonchi Neuro: Positive: Grossly Intact Abdomen: Positive: Soft, Active Bowel Sounds. Negative: Tender Skin: Positive: Clear. Negative: Rash Extremities: Present: normal. Absent: edema - Imaging and Cardiology Echo: report reviewed - Telemetry EKG Rhythm: Paced
[2016-07-25] MEDS: PROVENTIL IH PRN ×2 (10:41→16:52)
--- NOTE | 2016-07-25 15:06 | Consultation ---
History of Present Illness - Reason for Consult Consult date: 07/25/16 Evaluate for Acute IRU - History of Present Illness 61 y.o. male admitted secondary to shortness of breath and chest pain. Acute care course notable for acute respiratory failure secondary to acute on chronic CHF, requiring continuous BiPAP during admission, now on nasal cannula; acute COPD exacerbation, on IV steroids and nebs. On today, pt continues to report shortness of breath at rest, however, reports symptoms have greatly improved. Consult requested for post-acute care placement recommendations. Past History Past Medical History: atrial fib, CAD, COPD, DVT (history of DVT and pulmonary embolism), heart failure (systolic dysfunction), hypertension, other (gout; nonischemic cardiomyopathy) Past Surgical History: Other (status post ICD) Social history: Lives alone. denies: smoking (quit 2 months ago; smoked for 40 years), alcohol abuse Family history: hypertension Medications and Allergies Allergies Allergy/AdvReac Type Severity Reaction Status Date / Time Penicillins Allergy Unknown Verified 02/07/14 22:58 Home Medications Medication Instructions Recorded Confirmed Last Taken Type Albuterol *Only Ed* [Proventil 2.5 mg IH Q4H PRN #1 nebu 08/15/14 07/22/1610/30 Rx 0.5% NEBS] Allopurinol [Zyloprim] 300 mg PO QDAY #30 tablet 08/15/14 07/22/16 07/19/16 Rx 300MG Furosemide [Lasix] 40 mg PO DAILY #20 tablet 08/15/14 07/22/16 07/18/16 Rx 40MG Ipratropium/Albuterol Sulfate 1 ampul IH TIDRT #1 ampul.neb 08/15/14 07/22/16 Rx [Duoneb 0.5 mg-3 mg/3 ml Soln] Digoxin 250 mcg PO DAILY 12/31/14 07/22/16 07/19/16 History 250MCG Fluticasone/Salmeterol [Advair 1 puff IH BID #1 disk.w.dev 02/10/15 07/22/1610/30 Rx Diskus 500-50 mcg] Carvedilol [Coreg] 25 mg PO BID 03/13/15 07/22/16 07/19/16 History Losartan [Cozaar] 100 mg PO QDAY 03/13/15 07/22/16 07/19/16 History 100MG hydrALAZINE [Apresoline TAB] 25 mg PO BID 03/13/15 07/22/16 07/19/16 History 25MG Prednisone [predniSONE 10 mg 10 mg PO DAILY 01/27/16 07/22/16 07/19/16 History (6-Day Pack, 21 Tabs)] 10MG Rivaroxaban [Xarelto] 20 mg PO QDAY 01/27/16 07/22/16 07/19/16 History ISOSORBIDE MONOnitrate [Imdur ER] 60 mg PO QDAY #30 tab.er.24h 02/01/1607/19/16 Rx 60MG oxyCODONE /ACETAMINOPHEN [Percocet 1 tab PO Q12H PRN #10 tablet 02/01/1607/19/16 Rx 5/325 mg] traMADol [Ultram 50 MG tab] 50 mg PO Q6HR PRN #20 tablet 05/21/16 07/22/1607/19 Rx 50MG Active Meds: Active Medications Albuterol (Proventil) 2.5 mg IH Q4HRT PRN PRN Reason: Shortness Of Breath Last Admin: 07/25/16 10:41 Dose: 2.5 mg Albuterol/Ipratropium (Duoneb 0.5 Mg-3 Mg/3 Ml Soln) 1 ampul IH TIDRT [facility] Last Admin: 07/25/16 13:44 Dose: 1 ampul Allopurinol (Zyloprim) 300 mg PO QDAY [facility] Last Admin: 07/25/16 09:28 Dose: 300 mg Arformoterol Tartrate (Brovana Nebu) 15 mcg IH Q12HRT [facility] Last Admin: 07/25/16 07:03 Dose: 15 mcg Budesonide (Pulmicort) 0.5 mg IH Q12HRT [facility] Last Admin: 07/25/16 07:03 Dose: 0.5 mg Carvedilol (Coreg) 25 mg PO BID [facility] Last Admin: 07/25/16 09:27 Dose: 25 mg Digoxin (Lanoxin) 0.25 mg PO DAILY [facility] Last Admin: 07/25/16 09:28 Dose: 0.25 mg Furosemide (Lasix) 40 mg IV 0600,1800 [facility] Last Admin: 07/25/16 06:20 Dose: 40 mg Guaifenesin (Robitussin Dm) 10 ml PO Q6H PRN PRN Reason: Cough Last Admin: 07/25/16 01:12 Dose: 10 ml Hydralazine HCl (Apresoline) 25 mg PO BID [facility] Last Admin: 07/25/16 09:27 Dose: 25 mg Isosorbide Mononitrate (Imdur) 60 mg PO QDAY [facility] Last Admin: 07/25/16 09:28 Dose: 60 mg Losartan Potassium (Cozaar) 100 mg PO QDAY [facility] Last Admin: 07/25/16 09:26 Dose: 100 mg Methylprednisolone Sodium Succinate (Solu-Medrol) 40 mg IV Q8HR [facility] Last Admin: 07/25/16 14:25 Dose: 40 mg Oxycodone/Acetaminophen (Percocet 5/325) 1 tab PO Q12H PRN PRN Reason: Moder Pain unrelieved by Elsie Last Admin: 07/25/16 09:29 Dose: 1 tab Rivaroxaban (Xarelto) 20 mg PO QDDIAB [facility] PRN Reason: Protocol Last Admin: 07/25/16 09:27 Dose: 20 mg Tramadol HCl (Ultram) 50 mg PO Q6HR PRN PRN Reason: Pain Last Admin: 07/24/16 19:09 Dose: 50 mg Review of Systems All systems: negative Ears, nose, mouth and throat: no headache Cardiovascular: no chest pain, no lightheadedness Respiratory: cough, shortness of breath Gastrointestinal: constipation, no nausea, no vomiting Genitourinary Male: other (+Ortiz in place) Exam - Constitutional Vitals: Vital Signs - 12hr 07/25/16 07/25/16 07/25/16 05:20 07:03 07:13 Temperature 98.3 F Pulse Rate Pulse Rate [ 70 69 Anterior Bilateral Throughout] Pulse Rate [ 70 Apical] Respiratory 22 Rate Respiratory 20 20 Rate [Anterior Bilateral Throughout] Blood Pressure 114/71 [Left Arm] O2 Sat by Pulse 100 97 Oximetry 07/25/16 07/25/16 07/25/16 08:00 10:00 10:41 Temperature 97.6 F Pulse Rate 70 Pulse Rate [ 70 Anterior Bilateral Throughout] Pulse Rate [ 69 Apical] Respiratory 20 Rate Respiratory 20 Rate [Anterior Bilateral Throughout] Blood Pressure 143/85 [Left Arm] O2 Sat by Pulse 91 Oximetry 07/25/16 07/25/16 07/25/16 10:50 12:52 13:44 Temperature 97.5 F L Pulse Rate Pulse Rate [ 60 73 Anterior Bilateral Throughout] Pulse Rate [ 69 Apical] Respiratory 20 Rate Respiratory 20 20 Rate [Anterior Bilateral Throughout] Blood Pressure 125/84 [Left Arm] O2 Sat by Pulse 91 Oximetry 07/25/16 07/25/16 13:55 14:42 Temperature Pulse Rate Pulse Rate [ 70 Anterior Bilateral Throughout] Pulse Rate [ Apical] Respiratory Rate Respiratory 20 Rate [Anterior Bilateral Throughout] Blood Pressure [Left Arm] O2 Sat by Pulse 96 Oximetry General appearance: no acute distress, other (sitting up in bed; eating lunch) - EENT Eyes: EOM intact ENT: hearing intact - Neck Neck: supple, normal ROM - Respiratory Respiratory effort: normal Respiratory: bilateral: rhonchi - Cardiovascular Heart Sounds: Present: S1 & S2 - Extremities Extremities: No edema - Gastrointestinal General gastrointestinal: Present: soft, non-tender, non-distended, normal bowel sounds - Integumentary Integumentary: Present: clear - Musculoskeletal Musculoskeletal: strength equal bilaterally (4/5 strength throughout) - Neurologic Neurologic: CNII-XII intact, other (sensation grossly intact) - Psychiatric Psychiatric: appropriate mood/affect, intact judgment & insight, memory intact, cooperative - Labs CBC & Chem 7: 07/24/16 05:18 07/24/16 05:18 Labs: Laboratory Results - last 72 hr 07/23/16 07/24/16 07/24/16 12:57 05:18 05:18 WBC 6.2 RBC 4.12 Hgb 11.4 L Hct 35.8 MCV 87 MCH 28 MCHC 32 RDW 18.9 H Plt Count 133 L Add Manual Diff Complete Total Counted 100 Seg Neuts % (Manual) 84.0 H Band Neutrophils % 0 Lymphocytes % (Manual) 12.0 L Reactive Lymphs % (Man) 0 Monocytes % (Manual) 4.0 Eosinophils % (Manual) 0 Basophils % (Manual) 0 Metamyelocytes % 0 Myelocytes % 0 Promyelocytes % 0 Blast Cells % 0 Nucleated RBC % Not Reportable Seg Neutrophils # Man 5.2 Band Neutrophils # 0.0 Lymphocytes # (Manual) 0.7 L Abs React Lymphs (Man) 0.0 Monocytes # (Manual) 0.2 Eosinophils # (Manual) 0.0 Basophils # (Manual) 0.0 Metamyelocytes # 0.0 Myelocytes # 0.0 Promyelocytes # 0.0 Blast Cells # 0.0 WBC Morphology Not Reportable Hypersegmented Neuts Not Reportable Hyposegmented Neuts Not Reportable Hypogranular Neuts Not Reportable Smudge Cells Not Reportable Toxic Granulation Not Reportable Toxic Vacuolation Not Reportable Dohle Bodies Not Reportable Pelger-Huet Anomaly Not Reportable Marcell Rods Not Reportable Platelet Estimate Consistent w auto Clumped Platelets Not Reportable Plt Clumps, EDTA Not Reportable Large Platelets Not Reportable Giant Platelets Not Reportable Platelet Satelliting Not Reportable Plt Morphology Comment Not Reportable RBC Morphology Not Reportable Dimorphic RBCs Not Reportable Polychromasia Not Reportable Hypochromasia 1+ Poikilocytosis Not Reportable Anisocytosis 1+ Microcytosis Not Reportable Macrocytosis Not Reportable Spherocytes Not Reportable Pappenheimer Bodies Not Reportable Sickle Cells Not Reportable Target Cells Not Reportable Tear Drop Cells Not Reportable Ovalocytes Not Reportable Helmet Cells Not Reportable [place] Bodies Not Reportable [place] Rings Not Reportable [place] Cells Not Reportable Bite Cells Not Reportable Crenated Cell Not Reportable Elliptocytes Not Reportable Acanthocytes (Spur) Not Reportable Rouleaux Not Reportable Hemoglobin C Crystals Not Reportable Schistocytes Rare Malaria parasites Not Reportable Miky Bodies Not Reportable Hem Pathologist Commnt No POC ABG pH 7.368 POC ABG pCO2 63.0 H POC ABG pO2 60 L POC ABG HCO3 36.2 POC ABG Total CO2 38 POC ABG O2 Sat 89 POC ABG Base Excess 11 FiO2 32 Sodium 137 Potassium 4.7 Chloride 93.9 L Carbon Dioxide 39 H D Anion Gap 9 BUN 22 H Creatinine 0.9 Estimated GFR > 60 BUN/Creatinine Ratio 24.44 Glucose 119 H Calcium 8.1 L Assessment and Plan Patient was assessed and evaluated for Acute Inpatient Rehab Unit. 61 y.o. male with acute CHF and COPD exacerbation; weaned from BiPAP to oxygen via nasal cannula. Pt on continuous oxygen at night prior to admission; now requiring continuous oxygen during the day, as well. Rehab options discussed with patient on today. Pt noted to have refused PT evaluation due to ortiz catheter being in place and uncomfortable; educated on need to participate with therapy and agreeable after discussion. Placement recommendations to follow evaluation. Ongoing medical management of CHF and COPD per IM and Cardiology. Will continue to follow progress. Thank you for consultation. - Patient Problems (1) Acute on chronic systolic CHF (congestive heart failure) Current Visit: Yes Status: Acute (2) Acute exacerbation of chronic obstructive pulmonary disease Current Visit: Yes Status: Acute (3) Chronic atrial fibrillation Current Visit: Yes Status: Chronic
--- NOTE | 2016-07-25 18:27 | Progress Note ---
Assessment and Plan Assessment and plan: -- Acute hypoxic hypercapnic respiratory failure Secondary to combination of acute exacerbation of heart failure and COPD Oxygen titrated to O2 sats more than 90%, BiPAP as needed Physical therapy occupational therapy and rehabilitation if indicated -- Acute exacerbation of systolic heart failure Known with severe systolic heart failure, last EF 25-30% per echo January 2016 Status post AICD placement; scheduled for pacemaker interrogation on 08/04/[address] Bruce Serrano On nitrates, beta robert, WOLFGANG inhibitor, afterload reducing agent, digoxin and diuretic (iv lasix) -- Acute exacerbation COPD Started on IV corticosteroids, along with inhaled bronchodilators, supplemental oxygen and BiPAP --History of CAD On beta robert, nitrate and WOLFGANG inhibitor Anticoagulated Not on statin, will discuss with cardiology -- Coagulopathy INR 3.99 on admission and Xarelto held Recheck INR -- History of DVT/PE Anticoagulated with Xarelto Now resolved --Hypokalemia, Replaced, resolved -- Drug use; UDS positive for marijuana Counseled regarding importance of quitting -- DVT prophylaxis Anticoagulated with Xarelto --Full CODE STATUS Physical therapy , Occupational therapy, acute versus subacute rehabilitation History Interval history: Patient seen and evaluated in his room this morning medical records reviewed No new events reported by the nursing staff Patient continues to have shortness of breath intermittent, on continuous oxygen Denies chest pain or palpitations Alert awake oriented 3 not in acute distress Vital signs reviewed stable Hospitalist Physical - Constitutional Vitals: Temp Pulse Resp BP Pulse Ox 97.3 F L 71 20 153/90 95 07/25/16 16:00 07/25/16 17:02 07/25/16 17:02 07/25/16 16:00 07/25/16 16:00 General appearance: Present: no acute distress, well-nourished - EENT Eyes: Present: PERRL, EOM intact - Neck Neck: Present: supple, normal ROM - Respiratory Respiratory effort: normal Respiratory: bilateral: diminished, negative: rales, rhonchi, wheezing - Cardiovascular Rhythm: regular Heart Sounds: Present: S1 & S2 - Extremities Extremities: no ischemia, pulses intact, pulses symmetrical Peripheral Pulses: within normal limits - Abdominal General gastrointestinal: soft, non-tender, non-distended, normal bowel sounds - Integumentary Integumentary: Present: clear, warm - Psychiatric Psychiatric: appropriate mood/affect, cooperative - Neurologic Neurologic: CNII-XII intact, moves all extremities Results - Labs CBC & Chem 7: 07/24/16 05:18 07/24/16 05:18 Labs: Laboratory Last Values WBC 6.2 K/mm3 (4.5-11.0) 07/24/16 05:18 RBC 4.12 M/mm3 (3.65-5.03) 07/24/16 05:18 Hgb 11.4 gm/dl (11.8-15.2) L 07/24/16 05:18 Hct 35.8 % (35.5-45.6) 07/24/16 05:18 MCV 87 fl (84-94) 07/24/16 05:18 MCH 28 pg (28-32) 07/24/16 05:18 MCHC 32 % (32-34) 07/24/16 05:18 RDW 18.9 % (13.2-15.2) H 07/24/16 05:18 Plt Count 133 K/mm3 (140-440) L 07/24/16 05:18 Lymph % (Auto) 6.6 % (13.4-35.0) L 07/20/16 05:21 [place] % (Auto) 8.2 % (0.0-7.3) H 07/20/16 05:21 Eos % (Auto) 0.0 % (0.0-4.3) 07/20/16 05:21 Baso % (Auto) 0.1 % (0.0-1.8) 07/20/16 05:21 Lymph # 0.4 K/mm3 (1.2-5.4) L 07/20/16 05:21 [place] # 0.5 K/mm3 (0.0-0.8) 07/20/16 05:21 Eos # 0.0 K/mm3 (0.0-0.4) 07/20/16 05:21 Baso # 0.0 K/mm3 (0.0-0.1) 07/20/16 05:21 Add Manual Diff Complete 07/24/16 05:18 Total Counted 100 07/24/16 05:18 Seg Neutrophils % 85.1 % (40.0-70.0) H 07/20/16 05:21 Seg Neuts % (Manual) 84.0 % (40.0-70.0) H 07/24/16 05:18 Band Neutrophils % 0 % 07/24/16 05:18 Lymphocytes % (Manual) 12.0 % (13.4-35.0) L 07/24/16 05:18 Reactive Lymphs % (Man) 0 % 07/24/16 05:18 Monocytes % (Manual) 4.0 % (0.0-7.3) 07/24/16 05:18 Eosinophils % (Manual) 0 % (0.0-4.3) 07/24/16 05:18 Basophils % (Manual) 0 % (0.0-1.8) 07/24/16 05:18 Metamyelocytes % 0 % 07/24/16 05:18 Myelocytes % 0 % 07/24/16 05:18 Promyelocytes % 0 % 07/24/16 05:18 Blast Cells % 0 % 07/24/16 05:18 Nucleated RBC % Not Reportable 07/24/16 05:18 Seg Neutrophils # 5.6 K/mm3 (1.8-7.7) 07/20/16 05:21 Seg Neutrophils # Man 5.2 K/mm3 (1.8-7.7) 07/24/16 05:18 Band Neutrophils # 0.0 K/mm3 07/24/16 05:18 Lymphocytes # (Manual) 0.7 K/mm3 (1.2-5.4) L 07/24/16 05:18 Abs React Lymphs (Man) 0.0 K/mm3 07/24/16 05:18 Monocytes # (Manual) 0.2 K/mm3 (0.0-0.8) 07/24/16 05:18 Eosinophils # (Manual) 0.0 K/mm3 (0.0-0.4) 07/24/16 05:18 Basophils # (Manual) 0.0 K/mm3 (0.0-0.1) 07/24/16 05:18 Metamyelocytes # 0.0 K/mm3 07/24/16 05:18 Myelocytes # 0.0 K/mm3 07/24/16 05:18 Promyelocytes # 0.0 K/mm3 07/24/16 05:18 Blast Cells # 0.0 K/mm3 07/24/16 05:18 WBC Morphology Not Reportable 07/24/16 05:18 Hypersegmented Neuts Not Reportable 07/24/16 05:18 Hyposegmented Neuts Not Reportable 07/24/16 05:18 Hypogranular Neuts Not Reportable 07/24/16 05:18 Smudge Cells Not Reportable 07/24/16 05:18 Toxic Granulation Not Reportable 07/24/16 05:18 Toxic Vacuolation Not Reportable 07/24/16 05:18 Dohle Bodies Not Reportable 07/24/16 05:18 Pelger-Huet Anomaly Not Reportable 07/24/16 05:18 Marcell Rods Not Reportable 07/24/16 05:18 Platelet Estimate Consistent w auto 07/24/16 05:18 Clumped Platelets Not Reportable 07/24/16 05:18 Plt Clumps, EDTA Not Reportable 07/24/16 05:18 Large Platelets Not Reportable 07/24/16 05:18 Giant Platelets Not Reportable 07/24/16 05:18 Platelet Satelliting Not Reportable 07/24/16 05:18 Plt Morphology Comment Not Reportable 07/24/16 05:18 RBC Morphology Not Reportable 07/24/16 05:18 Dimorphic RBCs Not Reportable 07/24/16 05:18 Polychromasia Not Reportable 07/24/16 05:18 Hypochromasia 1+ 07/24/16 05:18 Poikilocytosis Not Reportable 07/24/16 05:18 Anisocytosis 1+ 07/24/16 05:18 Microcytosis Not Reportable 07/24/16 05:18 Macrocytosis Not Reportable 07/24/16 05:18 Spherocytes Not Reportable 07/24/16 05:18 Pappenheimer Bodies Not Reportable 07/24/16 05:18 Sickle Cells Not Reportable 07/24/16 05:18 Target Cells Not Reportable 07/24/16 05:18 Tear Drop Cells Not Reportable 07/24/16 05:18 Ovalocytes Not Reportable 07/24/16 05:18 Helmet Cells Not Reportable 07/24/16 05:18 [place] Bodies Not Reportable 07/24/16 05:18 [place] Rings Not Reportable 07/24/16 05:18 [place] Cells Not Reportable 07/24/16 05:18 Bite Cells Not Reportable 07/24/16 05:18 Crenated Cell Not Reportable 07/24/16 05:18 Elliptocytes Not Reportable 07/24/16 05:18 Acanthocytes (Spur) Not Reportable 07/24/16 05:18 Rouleaux Not Reportable 07/24/16 05:18 Hemoglobin C Crystals Not Reportable 07/24/16 05:18 Schistocytes Rare 07/24/16 05:18 Malaria parasites Not Reportable 07/24/16 05:18 Miky Bodies Not Reportable 07/24/16 05:18 Hem Pathologist Commnt No 07/24/16 05:18 PT 20.2 Sec. (12.2-14.9) H 07/20/16 05:21 INR 1.73 (0.87-1.13) H 07/20/16 05:21 APTT 36.4 Sec. (24.2-36.6) 07/20/16 05:21 POC ABG pH 7.368 (7.35-7.45) 07/23/16 12:57 POC ABG pCO2 63.0 (35-45) H 07/23/16 12:57 POC ABG pO2 60 (80-105) L 07/23/16 12:57 POC ABG HCO3 36.2 07/23/16 12:57 POC ABG Total CO2 38 07/23/16 12:57 POC ABG O2 Sat 89 07/23/16 12:57 POC ABG Base Excess 11 07/23/16 12:57 FiO2 32 % 07/23/16 12:57 Sodium 137 mmol/L (137-145) 07/24/16 05:18 Potassium 4.7 mmol/L (3.6-5.0) 07/24/16 05:18 Chloride 93.9 mmol/L (98-107) L 07/24/16 05:18 Carbon Dioxide 39 mmol/L (22-30) H D 07/24/16 05:18 Anion Gap 9 mmol/L 07/24/16 05:18 BUN 22 mg/dL (9-20) H 07/24/16 05:18 Creatinine 0.9 mg/dL (0.8-1.5) 07/24/16 05:18 Estimated GFR > 60 ml/min 07/24/16 05:18 BUN/Creatinine Ratio 24.44 % 07/24/16 05:18 Glucose 119 mg/dL (75-100) H 07/24/16 05:18 Calcium 8.1 mg/dL (8.4-10.2) L 07/24/16 05:18 Magnesium 1.9 mg/dL (1.7-2.3) 07/20/16 05:21 Total Creatine Kinase 161 units/L (55-170) 07/19/16 16:59 CK-MB (CK-2) 2.3 ng/mL (0.0-4.0) 07/19/16 16:59 CK-MB (CK-2) Rel Index 1.4 (0-4) 07/19/16 16:59 Troponin T < 0.010 ng/mL (0.00-0.029) 07/19/16 16:59 NT-Pro-B Natriuret Pep 2734 pg/mL (0-900) H 07/19/16 04:52 Urine Color Yellow (Yellow) 07/19/16 08:10 Urine Turbidity Clear (Clear) 07/19/16 08:10 Urine pH 6.0 (5.0-7.0) 07/19/16 08:10 Ur Specific [place] 1.014 (1.003-1.030) 07/19/16 08:10 Urine Protein 30 mg/dl mg/dL (Negative) 07/19/16 08:10 Urine Glucose (UA) Neg mg/dL (Negative) 07/19/16 08:10 Urine Ketones Neg mg/dL (Negative) 07/19/16 08:10 Urine Blood Sm (Negative) 07/19/16 08:10 Urine Nitrite Neg (Negative) 07/19/16 08:10 Urine Bilirubin Neg (Negative) 07/19/16 08:10 Urine Urobilinogen 4.0 mg/dL (<2.0) 07/19/16 08:10 Ur Leukocyte Esterase Mod (Negative) 07/19/16 08:10 Urine WBC (Auto) 3.0 /HPF (0.0-6.0) 07/19/16 08:10 Urine RBC (Auto) 5.0 /HPF (0.0-6.0) 07/19/16 08:10 U Epithel Cells (Auto) 2.0 /HPF (0-13.0) 07/19/16 08:10 Urine Bacteria (Auto) 1+ /HPF (Negative) 07/19/16 08:10 Hyaline Casts 1 /LPF 07/19/16 08:10 Urine Mucus Few /HPF 07/19/16 08:10 Urine Opiates Screen Presumptive negative 07/19/16 08:10 Urine Methadone Screen Presumptive negative 07/19/16 08:10 Ur Barbiturates Screen Presumptive negative 07/19/16 08:10 Ur Phencyclidine Scrn Presumptive negative 07/19/16 08:10 Ur Amphetamines Screen Presumptive negative 07/19/16 08:10 U Benzodiazepines Scrn Presumptive negative 07/19/16 08:10 Urine Cocaine Screen Presumptive negative 07/19/16 08:10 U Marijuana (THC) Screen Presumptive positive 07/19/16 08:10 Drugs of Abuse Note Disclamer 07/19/16 08:10
[2016-07-26 05:41] LABS: Basophils % (Auto) 0.1 % (0.0-1.8); Hematocrit 35.3 % (35.5-45.6); Hemoglobin 11.5 gm/dl (11.8-15.2); Mean Corpuscular HGB Conc 33 % (32-34); Mean Corpuscular Hemoglobin 28 pg (28-32); Mean Corpuscular Volume 86 fl (84-94); Platelet Count 156 K/mm3 (140-440); Red Blood Count 4.13 M/mm3 (3.65-5.03); Red Cell Distribution Width 18.6 % (13.2-15.2); White Blood Count 8.9 K/mm3 (4.5-11.0)
[2016-07-26 06:06] LABS: Anion Gap 12 mmol/L; BUN/Creatinine Ratio 36.66; Blood Urea Nitrogen 33 mg/dL (9-20); Carbon Dioxide 38 mmol/L (22-30); Chloride 93.2 mmol/L (98-107); Glucose 135 mg/dL (75-100); Potassium 4.6 mmol/L (3.6-5.0); Sodium 139 mmol/L (137-145)
[2016-07-26] MEDS: ROBITUSSIN DM PO PRN (06:06)
[2016-07-26] MEDS: LASIX IV SCH (06:06)
[2016-07-26] MEDS: DUONEB 0.5 MG-3 MG/3 ML SOLN IH SCH ×2 (07:56→13:32)
[2016-07-26] MEDS: PULMICORT IH SCH (07:57)
[2016-07-26] MEDS: BROVANA NEBU IH SCH (07:57)
--- NOTE | 2016-07-26 08:48 | Progress Note ---
Assessment and Plan Acute on chronic systolic heart failure clinically improving Echo 01/2016: EF 25-30% continue lasix, coreg, digoxin, losartan, Imdur, hydralazine COPD on home O2 Non-ischemic cardiomyopathy, s/p PPM/AICD Echo 01/2016: EF 25-30% Device interrogation 05/17 revealed fractured atrial lead. Per Dr. Serrano, pt is stable to discharge and will readdress as OP. Coronary artery disease [facility] 05/2016: patent left main, LAD, diagonal, circ, OM1 20%, RCA same 40% mid -section of a moderate-severe tortuosity vessel continue ASA, statin Chronic atrial fibrillation continue Xarelto PAD s/p right femoral endarterectomy with angioplasty/stent of right external iliac artery (2014) Hypertension Hyperlipidemia Tobacco use Hx. of PE Stable cardiac status. Continue current management. Follow up in the office with Dr. Srivastava in 2 weeks. The patient has been seen in conjunction with Dr. Srivastava who agrees with the assessment and plan of care. Subjective Date of service: 07/26/16 Principal diagnosis: heart failure Interval history: The patient is resting comfortably in bed. No new complaints. Paced rhythm on the monitor. Objective Last Vital Signs Temp 98.3 F 07/26/16 08:10 Pulse 70 07/26/16 08:10 Resp 20 07/26/16 08:10 BP 130/77 07/26/16 08:10 Pulse Ox 91 07/26/16 08:10 - Physical Examination General: No Apparent Distress HEENT: Positive: Normocephaly, Mucus Membranes Moist Neck: Positive: neck supple, trachea midline Cardiac: Positive: Reg Rate and Rhythm, S1/S2 Lungs: Positive: Wheezes, Rhonchi Neuro: Positive: Grossly Intact Abdomen: Positive: Soft, Active Bowel Sounds. Negative: Tender Skin: Positive: Clear. Negative: Rash Extremities: Present: normal. Absent: edema - Labs and Meds CBC 07/26/16 Range/Units 05:13 WBC 8.9 (4.5-11.0) K/mm3 RBC 4.13 (3.65-5.03) M/mm3 Hgb 11.5 L (11.8-15.2) gm/dl Hct 35.3 L (35.5-45.6) % Plt Count 156 (140-440) K/mm3 Lymph # 0.7 L (1.2-5.4) K/mm3 [place] # 0.3 (0.0-0.8) K/mm3 Eos # 0.0 (0.0-0.4) K/mm3 Baso # 0.0 (0.0-0.1) K/mm3 Comprehensive Metabolic Panel 07/26/16 Range/Units 05:13 Sodium 139 (137-145) mmol/L Potassium 4.6 (3.6-5.0) mmol/L Chloride 93.2 L (98-107) mmol/L Carbon Dioxide 38 H (22-30) mmol/L BUN 33 H (9-20) mg/dL Creatinine 0.9 (0.8-1.5) mg/dL Glucose 135 H (75-100) mg/dL Calcium 8.0 L (8.4-10.2) mg/dL - Imaging and Cardiology Echo: report reviewed - Telemetry EKG Rhythm: Paced
[2016-07-26] MEDS: IMDUR PO SCH (09:20)
[2016-07-26] MEDS: APRESOLINE PO SCH (09:20)
[2016-07-26] MEDS: PERCOCET 5/325 PO PRN (09:21)
[2016-07-26] MEDS: COZAAR PO SCH (09:21)
[2016-07-26] MEDS: XARELTO PO SCH (09:22)
[2016-07-26] MEDS: ZYLOPRIM PO SCH (09:22)
[2016-07-26] MEDS: COREG PO SCH (09:22)
[2016-07-26] MEDS: LANOXIN PO SCH (09:22)
[2016-07-26 13:08] VITALS: BP 118/69
--- NOTE | 2016-07-26 14:00 | Discharge Summary ---
Providers - Providers Date of Admission: 07/19/16 08:11 Date of discharge: 07/26/16 Attending physician: REGINO GOODMAN 07/23/16 14:17 Consult to Physician [CONS] Routine Consulting Provider: ASHKAN DAMON Reason For Exam: CHF exac, worsening Place consult to:: [facility] Notified:: a service Phone number called:: [phone] Was contact made?: Yes If yes, spoke with:: arnav Time called:: 15:15 07/24/16 16:24 Physical Therapy Evaluation and Treat [CONS] Routine Comment: Reason For Exam: decond 07/25/16 12:29 Consult Acute Rehabilitation [CONS] Routine Consulting Provider: JENS GAYTAN Reason For Exam: eval for rehab/deconditioned Primary care physician: JOAO MARIE MD Hospitalization Condition: Stable Hospital course: Discharge Diagnosis: 1. Acute hypoxic hypercapnic respiratory failure Secondary to combination of acute exacerbation of heart failure and COPD 2. Acute exacerbation of systolic heart failure Known with severe systolic heart failure, last EF 25-30% per echo January 2016 Status post AICD placement; scheduled for pacemaker interrogation on 08/04/[address] Bruce Serrano On nitrates, beta roebrt, WOLFGANG inhibitor, afterload reducing agent, digoxin and diuretic 3. Acute exacerbation COPD, resolved 4. CAD On beta robert, nitrate and WOLFGANG inhibitor Anticoagulated 5. Coagulopathy INR 3.99 on admission and Xarelto was on hold Recheck INR 5. History of DVT/PE Anticoagulated with Xarelto Now resolved 6. Hypokalemia Replaced, resolved 7. Drug abuse UDS positive for marijuana Counseled regarding importance of quitting Disposition: DC/[place] HOME UNDER HOME HEALTH Time spent for discharge: 32 minutes Core Measure Documentation - Palliative Care Palliative Care/ Comfort Measures: Not Applicable - Core Measures Any of the following diagnoses?: heart failure - Heart Failure Discharge Requirements WOLFGANG/ARB for LVSD if EF <40%: Yes Beta robert at discharge: Yes Exam - Constitutional Vitals: Temp Pulse Resp BP Pulse Ox 97.6 F 78 17 118/69 96 07/26/16 12:00 07/26/16 13:32 07/26/16 13:32 07/26/16 12:00 07/26/16 12:00 Plan Weight Bearing Status: Weight Bear as Tolerated Diet: low cholesterol, low salt Follow up with: PRIMARY CARE, [Primary Care Provider] - 3-5 Days Prescriptions: AtorvaSTATin [Lipitor] 40 mg PO DAILY #30 tablet
--- NOTE | 2016-07-26 15:55 | Event Note ---
Date: 07/26/16 IPR F/U, CHF, COPD. Pt seen in room early afternoon. PT evaluation completed this AM; noted to be independent with bed mobility and transfers; SBA/ supervision for gait. Recommended for home with home health.
== END 2016-07-26 18:17 | disposition home health service (06) | DRG 291 ==
LOC: ED 03:38 → 4A 08:11
PROVIDERS: ADMIT Internal Medicine; ATTEND Internal Medicine
PROC: 5A09557 Assistance with Respiratory Ventilation, Greater than 96 Consecutive Hours, Continuous Positive Airway Pressure (ICD-10-PCS; principal; 2016-07-21)
DX: I11.0 Hypertensive heart disease with heart failure (principal); J96.01 Acute respiratory failure with hypoxia; J96.02 Acute respiratory failure with hypercapnia; J44.1 Chronic obstructive pulmonary disease with (acute) exacerbation; D68.9 Coagulation defect, unspecified; I50.23 Acute on chronic systolic (congestive) heart failure; E11.9 Type 2 diabetes mellitus without complications; M19.90 Unspecified osteoarthritis, unspecified site; G43.909 Migraine, unspecified, not intractable, without status migrainosus; J45.909 Unspecified asthma, uncomplicated; E78.5 Hyperlipidemia, unspecified; M10.9 Gout, unspecified; E87.6 Hypokalemia; I25.10 Atherosclerotic heart disease of native coronary artery without angina pectoris; I42.9 Cardiomyopathy, unspecified; I48.2 Chronic atrial fibrillation; I73.9 Peripheral vascular disease, unspecified; Z60.2 Problems related to living alone; F12.10 Cannabis abuse, uncomplicated; I25.2 Old myocardial infarction; Z95.810 Presence of automatic (implantable) cardiac defibrillator; Z86.718 Personal history of other venous thrombosis and embolism; Z86.711 Personal history of pulmonary embolism; Z95.5 Presence of coronary angioplasty implant and graft; Z98.890 Other specified postprocedural states; Z79.899 Other long term (current) drug therapy; Z88.0 Allergy status to penicillin; Z71.51 Drug abuse counseling and surveillance of drug abuser; Z99.81 Dependence on supplemental oxygen; Z87.891 Personal history of nicotine dependence; Z79.01 Long term (current) use of anticoagulants; Z82.49 Family history of ischemic heart disease and other diseases of the circulatory system
CPT/HCPCS: 36415; 36600; 71010; 71020; 80048; 80307; 81001; 82550; 82553; 82803; 83735; 83880; 84484; 85007; 85025; 85610; 85730; 93005; 93010; 94640; 94660; 94760; 96372; 96374; 96375; G8978-GP; G8979-GP; J1940; J2270; J2920; J2930; J3010; J3475

== ENCOUNTER 2016-08-01 02:47 | Inpatient (IN) | payer MEDICARE ==
[2016-08-01] MEDS ORDERED: ATROVENT IH ONE ×2 (03:03→03:04)
[2016-08-01] MEDS ORDERED: PROVENTIL IH ONE (03:03)
[2016-08-01] MEDS ORDERED: MAGNESIUM SULFATE 2GM/50ML 2 GM in D5W 100 ML IV ONE (03:03)
[2016-08-01] MEDS ORDERED: TRIDIL DRIP 50MG/250ML 250 ML IV ONE (03:03)
[2016-08-01] MEDS ORDERED: DUONEB 0.5 MG-3 MG/3 ML SOLN IH ONE (03:04)
--- NOTE | 2016-08-01 03:08 | Emergency Department Report ---
ED Shortness of Breath HPI - General Chief Complaint: Dyspnea/Respdistress Stated Complaint: KAYLAN Time Seen by Provider: 08/01/16 02:57 Source: patient, family, EMS (ems notes not available at time of chart dictation), RN notes reviewed, old records reviewed Limitations: Physical Limitation - History of Present Illness Initial Comments: Cardiology: Dr. Ibrahim Past medical history: COPD, nonischemic cardiomyopathy, ejection fraction 20-25% , on digoxin therapy. Pulmonary embolus, atrial fibrillation, ventricular pacer. This is a 61-year-old male, previously unknown to me. He is brought to the hospital by EMS for chest pain and shortness of breath. The chest pain is central. Patient cannot describe exacerbating or relieving factors. Shortness of breath is chronic. Patient reports compliance with his outpatient medications. He denies dietary indiscretions. Denies fevers and chills. Denies lower extremity pain, lower extremity swelling. Patient specifically reports compliance with his anticoagulation therapy, natali BLAKE Complaint: shortness of breath, cough, chest pain -: Gradual Severity: moderate Quality: aching Consistency: constant Improves With: oxygen, rest, bronchodilators, upright position Worsens With: lying flat, exertion Known History Of: COPD, congestive heart failure Associated Symptoms: chest pain - Related Data Home Medications Medication Instructions Recorded Confirmed Last Taken Digoxin 250 mcg PO DAILY 12/31/14 08/01/16 07/31/16 Carvedilol [Coreg] 25 mg PO BID 03/13/15 08/01/16 07/31/16 Losartan [Cozaar] 100 mg PO QDAY 03/13/15 08/01/16 07/31/16 hydrALAZINE [Apresoline TAB] 25 mg PO BID 03/13/15 08/01/16 07/31/16 Rivaroxaban [Xarelto] 20 mg PO QDAY 01/27/16 08/01/16 07/31/16 Previous Rx's Medication Instructions Recorded Last Taken Type Allopurinol [Zyloprim] 300 mg PO QDAY #30 tablet 08/15/14 07/31/16 Rx Furosemide [Lasix] 40 mg PO DAILY #20 tablet 08/15/14 07/31/16 Rx Ipratropium/Albuterol Sulfate 1 ampul IH TIDRT #1 ampul.neb 08/15/14 07/31/16 Rx [Duoneb 0.5 mg-3 mg/3 ml Soln] Fluticasone/Salmeterol [Advair 1 puff IH BID #1 disk.w.dev 02/10/15 07/31/16 Rx Diskus 500-50 mcg] ISOSORBIDE MONOnitrate [Imdur ER] 60 mg PO QDAY #30 tab.er.24h 02/01/16 Rx oxyCODONE /ACETAMINOPHEN [Percocet 1 tab PO Q12H PRN #10 tablet 02/01/16 Rx 5/325 mg] traMADol [Ultram 50 MG tab] 50 mg PO Q6HR PRN #20 tablet 05/21/16 07/31/16 Rx AtorvaSTATin [Lipitor] 40 mg PO DAILY #30 tablet 07/26/16 07/31/16 Rx Allergies Allergy/AdvReac Type Severity Reaction Status Date / Time Penicillins Allergy Unknown Verified 02/07/14 22:58 ED Review of Systems ROS: Stated complaint: KAYLAN Other details as noted in HPI Constitutional: malaise, weakness. denies: fever Eyes: denies: vision change ENT: denies: epistaxis Respiratory: shortness of breath, wheezing Cardiovascular: chest pain Gastrointestinal: denies: abdominal pain Genitourinary: denies: urgency, dysuria Musculoskeletal: denies: back pain, joint swelling, arthralgia Skin: denies: rash, lesions Neurological: weakness Psychiatric: anxiety ED Past Medical Hx - Past Medical History Hx Hypertension: Yes Hx Heart Attack/AMI: Yes (2011) Hx Congestive Heart Failure: Yes Hx Diabetes: No Hx Deep Vein Thrombosis: Yes Hx Pulmonary Embolism: Yes Hx Liver Disease: No Hx Renal Disease: No Hx Arthritis: Yes Hx Headaches / Migraines: Yes Hx Seizures: No Hx Asthma: Yes Hx COPD: Yes Hx HIV: No Additional medical history: a-fib. HLD. GOUT. ICD - Surgical History Hx Coronary Stent: Yes (2012) Hx Open Heart Surgery: No Hx Pacemaker: Yes Hx Internal Defibrillator: Yes Hx Cholecystectomy: No Hx Appendectomy: No Hx Breast Surgery: No Additional Surgical History: spinal surgery - Social History Smoking Status: Former Smoker - Medications Home Medications: Home Medications Medication Instructions Recorded Confirmed Last Taken Type Allopurinol [Zyloprim] 300 mg PO QDAY #30 tablet 0108/01/16 07/31/16 Rx Furosemide [Lasix] 40 mg PO DAILY #20 tablet 08/15/14 08/01/16 07/31/16 Rx Ipratropium/Albuterol Sulfate 1 ampul IH TIDRT #1 ampul.neb 08/15/14 08/01/16 Rx [Duoneb 0.5 mg-3 mg/3 ml Soln] Digoxin 250 mcg PO DAILY 12/31/14 08/01/16 07/31/16 History Fluticasone/Salmeterol [Advair 1 puff IH BID #1 disk.w.dev 02/10/15 08/01/16 Rx Diskus 500-50 mcg] Carvedilol [Coreg] 25 mg PO BID 03/13/15 08/01/16 07/31/16 History Losartan [Cozaar] 100 mg PO QDAY 03/13/15 08/01/16 07/31/16 History hydrALAZINE [Apresoline TAB] 25 mg PO BID 03/13/15 08/01/16 07/31/16 History Rivaroxaban [Xarelto] 20 mg PO QDAY 01/27/16 08/01/16 07/31/16 History ISOSORBIDE MONOnitrate [Imdur ER] 60 mg PO QDAY #30 tab.er.24h 02/01/1607/31/16 Rx oxyCODONE /ACETAMINOPHEN [Percocet 1 tab PO Q12H PRN #10 tablet 02/01/1607/31/16 Rx 5/325 mg] traMADol [Ultram 50 MG tab] 50 mg PO Q6HR PRN #20 tablet 05/21/16 08/01/1607/31 Rx AtorvaSTATin [Lipitor] 40 mg PO DAILY #30 tablet 07/26/16 08/01/16 07/31/16 Rx ED Physical Exam - General Limitations: Physical Limitation General appearance: alert, in distress - Head Head exam: Present: atraumatic, normocephalic - Eye Eye exam: Present: normal appearance, EOMI - ENT ENT exam: Present: mucous membranes moist - Neck Neck exam: Present: normal inspection, full ROM. Absent: tenderness, meningismus - Respiratory Respiratory exam: Present: respiratory distress, wheezes, rales, rhonchi - Cardiovascular Cardiovascular Exam: Present: regular rate, normal rhythm, normal heart sounds. Absent: bradycardia, tachycardia, irregular rhythm, systolic murmur, diastolic murmur, rubs, gallop - GI/Abdominal GI/Abdominal exam: Present: soft, normal bowel sounds. Absent: distended, tenderness, guarding, rebound, rigid, pulsatile mass - Rectal Rectal exam: Present: deferred - Extremities Exam Extremities exam: Present: normal inspection, full ROM, normal capillary refill. Absent: tenderness, pedal edema, joint swelling, calf tenderness - Back Exam Back exam: Present: normal inspection, full ROM. Absent: tenderness, CVA tenderness (R), CVA tenderness (L), muscle spasm, paraspinal tenderness, vertebral tenderness - Neurological Exam Neurological exam: Present: alert, oriented X3, other (Extraocular movements intact. Tongue midline. No facial droop. Facial sensation intact to light touch in the V1, V2, V3 distribution bilaterally. 5 and 5 strength in 4 extremities.. Sensation is intact to light touch in 4 extremities.). Absent: motor sensory deficit - Psychiatric Psychiatric exam: Present: anxious - Skin Skin exam: Present: warm, dry, intact, normal color. Absent: rash ED Course Vital Signs 08/01/16 08/01/16 08/01/16 02:50 02:51 03:00 Temperature Pulse Rate 81 Pulse Rate [ Posterior Bilateral Throughout] Respiratory 24 Rate Respiratory Rate [Posterior Bilateral Throughout] Blood Pressure 142/78 138/83 O2 Sat by Pulse 100 98 Oximetry 08/01/16 08/01/16 08/01/16 03:16 03:20 03:25 Temperature 96.9 F L Pulse Rate 69 Pulse Rate [ Posterior Bilateral Throughout] Respiratory 24 Rate Respiratory Rate [Posterior Bilateral Throughout] Blood Pressure 138/83 118/70 142/78 O2 Sat by Pulse 100 94 100 Oximetry 08/01/16 08/01/16 08/01/16 03:30 03:34 03:45 Temperature Pulse Rate 70 Pulse Rate [ Posterior Bilateral Throughout] Respiratory 24 17 Rate Respiratory Rate [Posterior Bilateral Throughout] Blood Pressure 98/67 109/62 O2 Sat by Pulse 98 100 Oximetry 08/01/16 08/01/16 08/01/16 04:02 04:10 04:15 Temperature Pulse Rate 70 70 Pulse Rate [ 80 Posterior Bilateral Throughout] Respiratory 15 19 Rate Respiratory 20 Rate [Posterior Bilateral Throughout] Blood Pressure 99/64 94/61 O2 Sat by Pulse 100 100 Oximetry 08/01/16 08/01/16 08/01/16 04:30 04:46 05:00 Temperature Pulse Rate 70 70 70 Pulse Rate [ Posterior Bilateral Throughout] Respiratory 16 15 22 Rate Respiratory Rate [Posterior Bilateral Throughout] Blood Pressure 91/58 91/58 91/58 O2 Sat by Pulse 100 100 Oximetry 08/01/16 05:16 Temperature Pulse Rate 70 Pulse Rate [ Posterior Bilateral Throughout] Respiratory 12 Rate Respiratory Rate [Posterior Bilateral Throughout] Blood Pressure 97/67 O2 Sat by Pulse 100 Oximetry - Reevaluation(s) Reevaluation #1: 08/01/16 04:53 Differential diagnosis: COPD exacerbation, acute coronary syndrome, pneumonia, pulmonary embolus Assessment and plan: 61-year-old male with severe respiratory distress, who required initiation of BiPAP therapy and nitroglycerin. His respiratory distress improved, however he had persistent chest pain component. Patient has multiple recent hospital admissions, he reports compliance with his anticoagulation, troponins are negative, therefore a d-dimer is ordered, and is elevated. A CT scan of the chest is pending. The Hospital physician, Dr. Mcneal, except the patient to his service. Patient to remain in the ER pending results of the CT scan of the chest. Digoxin level was ordered, inpatient team to follow-up on this value, as it is currently a send out test, and will not return in an appreciable amount of time. Reevaluation #2: 08/01/16 05:48 Dr. Mcneal, the hospital physician, except the patient to his service. Dr. Chase, will follow-up on the CT scan of the chest. ED Medical Decision Making - Lab Data Result diagrams: 08/01/16 03:10 08/01/16 03:10 Vital Signs 08/01/16 08/01/16 08/01/16 02:50 03:00 03:16 Temperature Pulse Rate 81 Pulse Rate [ Posterior Bilateral Throughout] Respiratory 24 Rate Respiratory Rate [Posterior Bilateral Throughout] Blood Pressure 114/74 138/83 O2 Sat by Pulse 100 98 100 Oximetry 08/01/16 08/01/16 08/01/16 03:25 03:34 04:10 Temperature 96.9 F L Pulse Rate 69 Pulse Rate [ 80 Posterior Bilateral Throughout] Respiratory 24 24 Rate Respiratory 20 Rate [Posterior Bilateral Throughout] Blood Pressure 142/78 O2 Sat by Pulse 100 100 Oximetry Lab Results 08/01/16 08/01/16 08/01/16 Range/Units 03:10 03:10 03:10 WBC 7.8 (4.5-11.0) K/mm3 RBC 4.23 (3.65-5.03) M/mm3 Hgb 12.2 (11.8-15.2) gm/dl Hct 36.9 (35.5-45.6) % MCV 87 (84-94) fl MCH 29 (28-32) pg MCHC 33 (32-34) % RDW 18.1 H (13.2-15.2) % Plt Count 191 (140-440) K/mm3 Lymph % (Auto) 19.0 (13.4-35.0) % [place] % (Auto) 10.1 H (0.0-7.3) % Eos % (Auto) 0.9 (0.0-4.3) % Baso % (Auto) 0.4 (0.0-1.8) % Lymph # 1.5 (1.2-5.4) K/mm3 [place] # 0.8 (0.0-0.8) K/mm3 Eos # 0.1 (0.0-0.4) K/mm3 Baso # 0.0 (0.0-0.1) K/mm3 Seg Neutrophils % 69.6 (40.0-70.0) % Seg Neutrophils # 5.4 (1.8-7.7) K/mm3 PT (12.2-14.9) Sec. INR (0.87-1.13) APTT (24.2-36.6) Sec. D-Dimer (0-234) ng/mlDDU Sodium 139 (137-145) mmol/L Potassium 4.7 (3.6-5.0) mmol/L Chloride 96.5 L (98-107) mmol/L Carbon Dioxide 38 H (22-30) mmol/L Anion Gap 9 mmol/L BUN 14 (9-20) mg/dL Creatinine 0.9 (0.8-1.5) mg/dL Estimated GFR > 60 ml/min BUN/Creatinine Ratio 15.55 % Glucose 107 H (75-100) mg/dL Lactic Acid 0.5 L (0.7-2.0) mmol/L Calcium 8.9 (8.4-10.2) mg/dL Total Bilirubin 0.4 (0.1-1.2) mg/dL AST 25 (5-40) units/L ALT 30 (7-56) units/L Alkaline Phosphatase 93 (35-129) units/L Troponin T (0.00-0.029) ng/mL Total Protein 6.5 (6.3-8.2) g/dL Albumin 3.0 L (3.9-5) g/dL Albumin/Globulin Ratio 0.9 % 08/01/16 08/01/16 08/01/16 Range/Units 03:10 03:10 03:10 WBC (4.5-11.0) K/mm3 RBC (3.65-5.03) M/mm3 Hgb (11.8-15.2) gm/dl Hct (35.5-45.6) % MCV (84-94) fl MCH (28-32) pg MCHC (32-34) % RDW (13.2-15.2) % Plt Count (140-440) K/mm3 Lymph % (Auto) (13.4-35.0) % [place] % (Auto) (0.0-7.3) % Eos % (Auto) (0.0-4.3) % Baso % (Auto) (0.0-1.8) % Lymph # (1.2-5.4) K/mm3 [place] # (0.0-0.8) K/mm3 Eos # (0.0-0.4) K/mm3 Baso # (0.0-0.1) K/mm3 Seg Neutrophils % (40.0-70.0) % Seg Neutrophils # (1.8-7.7) K/mm3 PT 18.3 H (12.2-14.9) Sec. INR 1.52 H (0.87-1.13) APTT 31.9 (24.2-36.6) Sec. D-Dimer 303.4 H (0-234) ng/mlDDU Sodium (137-145) mmol/L Potassium (3.6-5.0) mmol/L Chloride (98-107) mmol/L Carbon Dioxide (22-30) mmol/L Anion Gap mmol/L BUN (9-20) mg/dL Creatinine (0.8-1.5) mg/dL Estimated GFR ml/min BUN/Creatinine Ratio % Glucose (75-100) mg/dL Lactic Acid (0.7-2.0) mmol/L Calcium (8.4-10.2) mg/dL Total Bilirubin (0.1-1.2) mg/dL AST (5-40) units/L ALT (7-56) units/L Alkaline Phosphatase (35-129) units/L Troponin T < 0.010 (0.00-0.029) ng/mL Total Protein (6.3-8.2) g/dL Albumin (3.9-5) g/dL Albumin/Globulin Ratio % - EKG Data 08/01/16 04:54 EKG demonstrates a ventricular paced rhythm, motion artifact, good capture, not morphologically consistent with STEMI, low voltage, appears essentially unchanged compared to prior EKG from 05/18/2016. - Radiology Data Radiology results: report reviewed, image reviewed X-ray chest negative. Chronic changes noted. Left-sided AICD/pacer noted. Critical Care Time: Yes Critical care time in (mins) excluding proc time.: 35 Critical care attestation.: If time is entered above; I have spent that time in minutes in the direct care of this critically ill patient, excluding procedure time. Critical Care Time: Critical care time includes multiple bedside evaluations, interpretation of laboratory studies, radiology studies, time spent managing a patient with acute respiratory distress, requiring initiation of noninvasive ventilation, and nitroglycerin therapy. This excludes procedure time. ED Disposition Clinical Impression: Respiratory distress, CHF (congestive heart failure), COPD with exacerbation Disposition: OP ADMITTED IP TO THIS HOSP Is pt being admited?: Yes Does the pt Need Aspirin: Yes Condition: Good
[2016-08-01] MEDS ORDERED: MAGNESIUM SULFATE 2GM/50ML 50 ML IV ONE (03:11)
[2016-08-01 03:21] LABS: Basophils % (Auto) 0.4 % (0.0-1.8); Eosinophils % (Auto) 0.9 % (0.0-4.3); Hematocrit 36.9 % (35.5-45.6); Hemoglobin 12.2 gm/dl (11.8-15.2); Mean Corpuscular HGB Conc 33 % (32-34); Mean Corpuscular Hemoglobin 29 pg (28-32); Mean Corpuscular Volume 87 fl (84-94); Platelet Count 191 K/mm3 (140-440); Red Blood Count 4.23 M/mm3 (3.65-5.03); Red Cell Distribution Width 18.1 % (13.2-15.2); White Blood Count 7.8 K/mm3 (4.5-11.0)
[2016-08-01 03:31] LABS: INR 1.52 (0.87-1.13)
[2016-08-01 03:32] LABS: Partial Thromboplastin Time 31.9 Sec. (24.2-36.6)
[2016-08-01 03:46] LABS: Alanine Aminotransferase 30 units/L (7-56); Albumin/Globulin Ratio 0.9 %; Alkaline Phosphatase 93 units/L (35-129); BUN/Creatinine Ratio 15.55; Bilirubin,Total 0.4 mg/dL (0.1-1.2); Blood Urea Nitrogen 14 mg/dL (9-20); Calcium 8.9 mg/dL (8.4-10.2); Carbon Dioxide 38 mmol/L (22-30); Chloride 96.5 mmol/L (98-107); Glucose 107 mg/dL (75-100); Potassium 4.7 mmol/L (3.6-5.0); Sodium 139 mmol/L (137-145); Total Protein 6.5 g/dL (6.3-8.2)
[2016-08-01 04:17] LABS: Anion Gap 9 mmol/L
--- NOTE | 2016-08-01 04:24 | XRay Report ---
FINAL REPORT EXAM: XR CHEST 1V AP HISTORY: Dyspnea TECHNIQUE: Single frontal view of the chest. PRIORS: None FINDINGS: Dual lead ICD. Moderate cardiac enlargement. No infiltrates. Minor scarring or atelectasis left lower lobe. No vascular congestion. IMPRESSION: 1. Mild scarring or atelectasis left lower lobe. Moderate cardiac enlargement.
[2016-08-01] MEDS ORDERED: BABY ASPIRIN PO ONE (04:56)
--- NOTE | 2016-08-01 05:03 | History and Physical Report ---
History of Present Illness Date of examination: 08/01/16 Date of admission: 08/01/16 Chief complaint: Sob History of present illness: 61-year-old male with significant past medical history of COPD, nonischemic cardiomyopathy(EF 20-25%), pulmonary embolus, atrial fibrillation and AICD who presents to the hospital via EMS with complaints of chest pain and dyspnea. Patient describes the chest pain as central with no exacerbating or alleviating factors. Patient reports that his shortness of breath is chronic. He does report compliance with medications. Patient denies any fever or chills. Patient had a recent hospitalization with discharge on 07/26/16 for acute hypoxemic respiratory failure secondary to COPD and systolic heart failure exacerbation. Patient denies cough or cold-like symptoms. No headache or visual disturbances. Past History Past Medical History: CAD, COPD, heart failure, pulmonary embolism Past Surgical History: valve replacement, Other (AICD) Social history: no significant social history Family history: no significant family history Medications and Allergies Allergies Allergy/AdvReac Type Severity Reaction Status Date / Time Penicillins Allergy Unknown Verified 02/07/14 22:58 Home Medications Medication Instructions Recorded Confirmed Last Taken Type Allopurinol [Zyloprim] 300 mg PO QDAY #30 tablet 08/15/14 08/01/16 07/31/16 Rx Furosemide [Lasix] 40 mg PO DAILY #20 tablet 08/15/14 08/01/16 07/31/16 Rx Ipratropium/Albuterol Sulfate 1 ampul IH TIDRT #1 ampul.neb 08/15/14 08/01/16 Rx [Duoneb 0.5 mg-3 mg/3 ml Soln] Digoxin 250 mcg PO DAILY 12/31/14 08/01/16 07/31/16 History Fluticasone/Salmeterol [Advair 1 puff IH BID #1 disk.w.dev 02/10/15 08/01/16 Rx Diskus 500-50 mcg] Carvedilol [Coreg] 25 mg PO BID 03/13/15 08/01/16 07/31/16 History Losartan [Cozaar] 100 mg PO QDAY 03/13/15 08/01/16 07/31/16 History hydrALAZINE [Apresoline TAB] 25 mg PO BID 0808/01/16 07/31/16 History Rivaroxaban [Xarelto] 20 mg PO QDAY 01/27/16 08/01/16 07/31/16 History ISOSORBIDE MONOnitrate [Imdur ER] 60 mg PO QDAY #30 tab.er.24h 02/01/1607/31/16 Rx oxyCODONE /ACETAMINOPHEN [Percocet 1 tab PO Q12H PRN #10 tablet 02/01/1607/31/16 Rx 5/325 mg] traMADol [Ultram 50 MG tab] 50 mg PO Q6HR PRN #20 tablet 05/21/16 08/01/1607/31 Rx AtorvaSTATin [Lipitor] 40 mg PO DAILY #30 tablet 07/26/16 08/01/16 07/31/16 Rx Active Meds: Active Medications Nitroglycerin/Dextrose (Tridil Drip 50mg/250ml) 250 mls @ 3 mls/hr IV TITR ONE ; 10 MCG/MIN PRN Reason: Protocol Stop: 08/04/16 14:22 Last Titration: 08/01/16 04:15 Dose: 0 mcg/min Review of Systems All systems: negative Exam - Constitutional Vitals: Temp Pulse Resp BP Pulse Ox 96.9 F L 80 20 142/78 100 08/01/16 03:25 08/01/16 04:10 08/01/16 04:10 08/01/16 03:25 08/01/16 03:34 General appearance: Present: no acute distress, well-nourished - EENT Eyes: Present: PERRL ENT: hearing intact, clear oral mucosa - Neck Neck: Present: supple, normal ROM - Respiratory Respiratory effort: normal Respiratory: bilateral: diminished, rales, rhonchi - Cardiovascular Heart Sounds: Present: S1 & S2. Absent: rub, click - Extremities Extremities: pulses symmetrical, No edema Peripheral Pulses: within normal limits - Abdominal General gastrointestinal: Present: soft, non-tender, non-distended, normal bowel sounds Male genitourinary: Present: normal - Integumentary Integumentary: Present: clear, warm, dry - Musculoskeletal Musculoskeletal: gait normal, strength equal bilaterally - Psychiatric Psychiatric: appropriate mood/affect, intact judgment & insight - Neurologic Neurologic: CNII-XII intact, moves all extremities Results - Labs CBC & Chem 7: 08/01/16 03:10 08/01/16 03:10 Labs: Laboratory Last Values WBC 7.8 K/mm3 (4.5-11.0) 08/01/16 03:10 RBC 4.23 M/mm3 (3.65-5.03) 08/01/16 03:10 Hgb 12.2 gm/dl (11.8-15.2) 08/01/16 03:10 Hct 36.9 % (35.5-45.6) 08/01/16 03:10 MCV 87 fl (84-94) 08/01/16 03:10 MCH 29 pg (28-32) 08/01/16 03:10 MCHC 33 % (32-34) 08/01/16 03:10 RDW 18.1 % (13.2-15.2) H 08/01/16 03:10 Plt Count 191 K/mm3 (140-440) 08/01/16 03:10 Lymph % (Auto) 19.0 % (13.4-35.0) 08/01/16 03:10 [place] % (Auto) 10.1 % (0.0-7.3) H 08/01/16 03:10 Eos % (Auto) 0.9 % (0.0-4.3) 08/01/16 03:10 Baso % (Auto) 0.4 % (0.0-1.8) 08/01/16 03:10 Lymph # 1.5 K/mm3 (1.2-5.4) 08/01/16 03:10 [place] # 0.8 K/mm3 (0.0-0.8) 08/01/16 03:10 Eos # 0.1 K/mm3 (0.0-0.4) 08/01/16 03:10 Baso # 0.0 K/mm3 (0.0-0.1) 08/01/16 03:10 Seg Neutrophils % 69.6 % (40.0-70.0) 08/01/16 03:10 Seg Neutrophils # 5.4 K/mm3 (1.8-7.7) 08/01/16 03:10 PT 18.3 Sec. (12.2-14.9) H 08/01/16 03:10 INR 1.52 (0.87-1.13) H 08/01/16 03:10 APTT 31.9 Sec. (24.2-36.6) 08/01/16 03:10 D-Dimer 303.4 ng/mlDDU (0-234) H 08/01/16 03:10 Sodium 139 mmol/L (137-145) 08/01/16 03:10 Potassium 4.7 mmol/L (3.6-5.0) 08/01/16 03:10 Chloride 96.5 mmol/L (98-107) L 08/01/16 03:10 Carbon Dioxide 38 mmol/L (22-30) H 08/01/16 03:10 Anion Gap 9 mmol/L 08/01/16 03:10 BUN 14 mg/dL (9-20) 08/01/16 03:10 Creatinine 0.9 mg/dL (0.8-1.5) 08/01/16 03:10 Estimated GFR > 60 ml/min 08/01/16 03:10 BUN/Creatinine Ratio 15.55 % 08/01/16 03:10 Glucose 107 mg/dL (75-100) H 08/01/16 03:10 Lactic Acid 0.5 mmol/L (0.7-2.0) L 08/01/16 03:10 Calcium 8.9 mg/dL (8.4-10.2) 08/01/16 03:10 Total Bilirubin 0.4 mg/dL (0.1-1.2) 08/01/16 03:10 AST 25 units/L (5-40) 08/01/16 03:10 ALT 30 units/L (7-56) 08/01/16 03:10 Alkaline Phosphatase 93 units/L (35-129) 08/01/16 03:10 Troponin T < 0.010 ng/mL (0.00-0.029) 08/01/16 03:10 Total Protein 6.5 g/dL (6.3-8.2) 08/01/16 03:10 Albumin 3.0 g/dL (3.9-5) L 08/01/16 03:10 Albumin/Globulin Ratio 0.9 % 08/01/16 03:10 Assessment and Plan Assessment and plan: 1. Acute on chronic systolic heart failure. Echocardiogram January 2016 revealed EF 25-30%. Patient will be placed on CHF pathway. Patient will be treated with IV Lasix. Continue Coreg, digoxin, losartan, Imdur and hydralazine. Cardiology consultation. 2. Acute on chronic COPD exacerbation. Patient will be placed on the COPD pathway. Consider pulmonary consultation. Nebulizers, IV steroids and empiric antibiotics. 3. Nonischemic cardiomyopathy, s/p PPM/AICD. Patient is scheduled for device interrogation as outpatient per cardiology. 4. Coronary artery disease. Left heart catheterization on 05/2016 revealed patent left main, LAD, diagonal, circ, OM1 20%, RCA same 40% mid-section of a moderate-severe tortuosity vessel. Continue aspirin and statin. 5. History of pulmonary embolus. Continue Xarelto. 6. Chronic atrial fibrillation. Continue rate control with digoxin and anticoagulation with Xarelto 7. Peripheral vascular disease. Patient status post right femoral endarterectomy with angioplasty/stent of right external iliac artery in 2014. 8. Hypertension. Resume antihypertensive medications. 9. Hyperlipidemia. Resume statin.
[2016-08-01] MEDS ORDERED: SUBLIMAZE ONE (05:09)
[2016-08-01] MEDS ORDERED: TYLENOL PO PRN (05:11)
[2016-08-01] MEDS ORDERED: ZOFRAN IV PRN (05:11)
[2016-08-01] MEDS ORDERED: MILK OF MAGNESIA PO PRN (05:11)
[2016-08-01] MEDS ORDERED: DULCOLAX PR PRN (05:11)
[2016-08-01] MEDS ORDERED: SUBLIMAZE IV ONE (05:16)
[2016-08-01] MEDS ORDERED: NACL ONE (05:30)
--- NOTE | 2016-08-01 06:30 | Cat Scan Report ---
FINAL REPORT EXAM: CT ANGIO CHEST HISTORY: cp sob TECHNIQUE: CTA chest with IV contrast. MIP and MPR images. PRIORS: 01/12/2015 FINDINGS: No thoracic aortic aneurysm or dissection seen. Moderate cardiac enlargement. No pathologically enlarged lymph nodes seen. No pulmonary embolism seen. Scattered bilateral atelectasis, worse than on the prior study. Lungs are hyperinflated compatible with COPD. ICD noted. IMPRESSION: 1. No pulmonary embolism seen. Cardiac enlargement.
[2016-08-01] MEDS: PULMICORT IH SCH ×2 (07:29→20:29)
[2016-08-01] MEDS: DUONEB 0.5 MG-3 MG/3 ML SOLN IH SCH ×3 (07:29→20:41)
[2016-08-01] MEDS: BROVANA NEBU IH SCH ×2 (07:30→20:29)
[2016-08-01] MEDS: PERCOCET 5/325 PO PRN (08:30)
[2016-08-01] MEDS ORDERED: NON-FORMULARY (Fluticasone/Salmeterol [Advair Diskus 500-50 Mcg] 1 PUFF) IH SCH (10:00)
[2016-08-01] MEDS: XARELTO PO SCH (10:00)
--- NOTE | 2016-08-01 11:21 | Consultation ---
History of Present Illness Consult date: 08/01/16 Requesting physician: LILIA MCNEAL Consult reason: congestive heart failure History of present illness: The patient is a 61 year old male who is followed by Dr. CASS Irbahim in the office with a history of non-obstructive CAD, non-ischemic cardiomyopathy s/p PPM/AICD , chronic atrial fibrillation, PAD, HTN, COPD, PE who presented with complaints of substernal chest pain and shortness of breath that started yesterday. He states the pain is non-radiating and describes it as a "aching" sensation that is worse with movement and coughing. He is chronically short of breath but reports a sudden worsening of his dyspnea yesterday. No palpitations, nausea, vomiting or diaphoresis. Chest CTA negative for PE. Troponin negative. Echo done 01/2016 showed EF 25-30%. Cardiac cath done 05/2016 revealed non- obstructive CAD. Past History Past Medical History: atrial fib, CAD, COPD, diabetes, heart failure, hypertension, hyperlipidemia, PVD, pulmonary embolism, other (gout) Past Surgical History: Other (neck surgery, AICD, right femoral endarterectomy ( 01/04/15)) Social history: denies: smoking, alcohol abuse, prescription drug abuse, IV drug use Family history: no significant family history Medications and Allergies Allergies Allergy/AdvReac Type Severity Reaction Status Date / Time Penicillins Allergy Unknown Verified 02/07/14 22:58 Home Medications Medication Instructions Recorded Confirmed Last Taken Type Allopurinol [Zyloprim] 300 mg PO QDAY #30 tablet 08/15/14 08/01/16 07/31/16 Rx Furosemide [Lasix] 40 mg PO DAILY #20 tablet 08/15/14 08/01/16 07/31/16 Rx Ipratropium/Albuterol Sulfate 1 ampul IH TIDRT #1 ampul.neb 08/15/14 08/01/16 Rx [Duoneb 0.5 mg-3 mg/3 ml Soln] Digoxin 250 mcg PO DAILY 12/31/14 08/01/16 07/31/16 History Fluticasone/Salmeterol [Advair 1 puff IH BID #1 disk.w.dev 02/10/15 08/01/16 Rx Diskus 500-50 mcg] Carvedilol [Coreg] 25 mg PO BID 03/13/15 08/01/16 07/31/16 History Losartan [Cozaar] 100 mg PO QDAY 03/13/15 08/01/16 07/31/16 History hydrALAZINE [Apresoline TAB] 25 mg PO BID 03/13/15 08/01/16 07/31/16 History Rivaroxaban [Xarelto] 20 mg PO QDAY 01/27/16 08/01/16 07/31/16 History ISOSORBIDE MONOnitrate [Imdur ER] 60 mg PO QDAY #30 tab.er.24h 02/01/1607/31/16 Rx oxyCODONE /ACETAMINOPHEN [Percocet 1 tab PO Q12H PRN #10 tablet 02/01/1607/31/16 Rx 5/325 mg] traMADol [Ultram 50 MG tab] 50 mg PO Q6HR PRN #20 tablet 05/21/16 08/01/1607/31 Rx AtorvaSTATin [Lipitor] 40 mg PO DAILY #30 tablet 07/26/16 08/01/16 07/31/16 Rx Active Meds: Active Medications Acetaminophen (Tylenol) 650 mg PO Q4H PRN PRN Reason: Pain MILD(1-3)/Fever >100.5/BECK Albuterol/Ipratropium (Duoneb 0.5 Mg-3 Mg/3 Ml Soln) 1 ampul IH TIDRT [facility] Last Admin: 08/01/16 07:29 Dose: 1 ampul Allopurinol (Zyloprim) 300 mg PO QDAY [facility] Arformoterol Tartrate (Brovana Nebu) 15 mcg IH Q12HRT [facility] Last Admin: 08/01/16 07:30 Dose: Not Given Atorvastatin Calcium (Lipitor) 40 mg PO DAILY [facility] Bisacodyl (Dulcolax) 10 mg VT QDAY PRN PRN Reason: Constipation unrelieved by MOM Budesonide (Pulmicort) 1 mg IH Q12HRT [facility] Last Admin: 08/01/16 07:29 Dose: 1 mg Carvedilol (Coreg) 25 mg PO BID [facility] Digoxin (Lanoxin) 0.25 mg PO 1700 [facility] Furosemide (Lasix) 40 mg IV QDAY [facility] Hydralazine HCl (Apresoline) 25 mg PO BID [facility] Nitroglycerin/Dextrose (Tridil Drip 50mg/250ml) 250 mls @ 3 mls/hr IV TITR ONE ; 10 MCG/MIN PRN Reason: Protocol Stop: 08/04/16 14:22 Last Titration: 08/01/16 04:15 Dose: 0 mcg/min Doxycycline Hyclate 100 mg/ (Sodium Chloride) 250 mls @ 250 mls/hr IV Q12HR KRISTY PRN Reason: Protocol Isosorbide Mononitrate (Imdur) 60 mg PO QDAY [facility] Losartan Potassium (Cozaar) 100 mg PO QDAY [facility] Magnesium Hydroxide (Milk Of Magnesia) 30 ml PO Q4H PRN PRN Reason: Constipation Methylprednisolone Sodium Succinate (Solu-Medrol) 80 mg IV Q8H [facility] Ondansetron HCl (Zofran) 4 mg IV Q8H PRN PRN Reason: N/V unrelieved by Reglan Oxycodone/Acetaminophen (Percocet 5/325) 1 tab PO Q12H PRN PRN Reason: Moder Pain unrelieved by [place] Last Admin: 08/01/16 08:30 Dose: 1 tab Rivaroxaban (Xarelto) 20 mg PO QDAY [facility] PRN Reason: Protocol Review of Systems Constitutional: no fever, no chills Ears, nose, mouth and throat: no nasal congestion, no nasal discharge, no sinus pressure Cardiovascular: chest pain, shortness of breath, dyspnea on exertion, no palpitations, no leg edema Respiratory: cough, shortness of breath, dyspnea on exertion Gastrointestinal: no abdominal pain, no nausea, no vomiting, no diarrhea, no constipation Genitourinary Male: no dysuria, no hematuria Musculoskeletal: myalgias, no neck stiffness, no neck pain Integumentary: no rash, no pruritis Neurological: no parathesias, no numbness, no tingling, no headaches Endocrine: no cold intolerance, no heat intolerance Hematologic/Lymphatic: no easy bruising, no easy bleeding Allergic/Immunologic: no urticaria, no wheezing Physical Examination Last Vital Signs Temp 97.8 F 08/01/16 09:18 Pulse 70 08/01/16 09:18 Resp 18 08/01/16 09:18 BP 146/77 08/01/16 09:18 Pulse Ox 91 08/01/16 09:18 General appearance: no acute distress HEENT: Positive: Normocephaly, Mucus Membranes Moist Neck: Positive: neck supple, trachea midline Cardiac: Positive: Reg Rate and Rhythm, S1/S2 Lungs: Positive: clear to auscultation Neuro: Positive: Grossly Intact Abdomen: Positive: Soft, Active Bowel Sounds. Negative: Tender Skin: Positive: Clear. Negative: Rash Extremities: Present: normal. Absent: edema Results 08/01/16 03:10 08/01/16 03:10 - Imaging and Cardiology Echo: report reviewed (01/2016: EF 25-30%) EKG: image reviewed EKG interpretations - Telemetry EKG Rhythm: Paced Pacemaker: ventricular pacing w/capt Assessment and Plan Acute on chronic systolic heart failure Echo 01/2016: EF 25-30% continue lasix, coreg, digoxin, losartan, Imdur, hydralazine COPD on home O2 per pulmonary Non-ischemic cardiomyopathy, s/p PPM/AICD Echo 01/2016: EF 25-30% Device interrogation 05/17 revealed fractured atrial lead. Per Dr. Serrano, pt is stable to discharge and will readdress as OP. Coronary artery disease [facility] 05/2016: patent left main, LAD, diagonal, circ, OM1 20%, RCA same 40% mid -section of a moderate-severe tortuosity vessel continue ASA, statin Chronic atrial fibrillation continue Xarelto PAD s/p right femoral endarterectomy with angioplasty/stent of right external iliac artery (2014) Hypertension Hyperlipidemia Tobacco use Hx. of PE Agree with current regimen. Continue close monitoring of volume status. Follow up with Dr. Serrano in the [place] office for device interrogation on 08/04/16 at 9:00 am. The patient has been seen in conjunction with Dr. Tian who agrees with the assessment and plan of care. Thank you Dr. Mcneal for allowing us to participate in the care of this patient.
[2016-08-01] MEDS: DOXYCYCLINE HYCLATE 100 MG in NACL 0.9% 250ML 250 ML IV SCH ×3 (16:35→21:01)
[2016-08-01] MEDS: APRESOLINE PO SCH ×2 (16:37→21:52)
[2016-08-01] MEDS: IMDUR PO SCH (16:39)
[2016-08-01] MEDS: COZAAR PO SCH (16:41)
[2016-08-01] MEDS: COREG PO SCH ×2 (16:42→21:52)
[2016-08-01] MEDS: LASIX IV SCH (16:43)
[2016-08-01] MEDS: ZYLOPRIM PO SCH (16:46)
[2016-08-01] MEDS ORDERED: LANOXIN PO SCH (17:00)
[2016-08-02] MEDS: DUONEB 0.5 MG-3 MG/3 ML SOLN IH SCH ×3 (00:30→14:49)
[2016-08-02] MEDS ORDERED: PROVENTIL IH PRN (00:37)
[2016-08-02] MEDS: PERCOCET 5/325 PO PRN ×2 (03:21→14:30)
[2016-08-02 05:09] LABS: Hematocrit 32.4 % (35.5-45.6); Hemoglobin 10.4 gm/dl (11.8-15.2); Mean Corpuscular HGB Conc 32 % (32-34); Mean Corpuscular Hemoglobin 28 pg (28-32); Mean Corpuscular Volume 86 fl (84-94); Platelet Count 191 K/mm3 (140-440); Red Blood Count 3.77 M/mm3 (3.65-5.03); Red Cell Distribution Width 18.2 % (13.2-15.2); White Blood Count 9.7 K/mm3 (4.5-11.0)
[2016-08-02 05:25] LABS: Anion Gap 12 mmol/L; BUN/Creatinine Ratio 23.63; Blood Urea Nitrogen 26 mg/dL (9-20); Calcium 8.1 mg/dL (8.4-10.2); Carbon Dioxide 34 mmol/L (22-30); Chloride 93.5 mmol/L (98-107); Glucose 153 mg/dL (75-100); Potassium 4.9 mmol/L (3.6-5.0); Sodium 135 mmol/L (137-145)
[2016-08-02 07:27] LABS: Blastocytes % (Manual) 0 %; Eosinophils % (Manual) 0 % (0.0-4.3)
[2016-08-02 07:29] LABS: Anisocytosis Few; Poikilocytosis Few
[2016-08-02 07:30] LABS: Diff Status Complete
--- NOTE | 2016-08-02 09:06 | Progress Note ---
Assessment and Plan Acute on chronic systolic heart failure Echo 01/2016: EF 25-30% continue lasix, coreg, digoxin, losartan, Imdur, hydralazine COPD on home O2 per pulmonary Non-ischemic cardiomyopathy, s/p PPM/AICD Echo 01/2016: EF 25-30% Device interrogation 05/17 revealed fractured atrial lead. Per Dr. Serrano, pt is stable to discharge and will readdress as OP. Coronary artery disease [facility] 05/2016: patent left main, LAD, diagonal, circ, OM1 20%, RCA same 40% mid -section of a moderate-severe tortuosity vessel continue ASA, statin Chronic atrial fibrillation continue Xarelto PAD s/p right femoral endarterectomy with angioplasty/stent of right external iliac artery (2014) Hypertension Hyperlipidemia Tobacco use Hx. of PE Continue current management. Continue close monitoring of volume status. Follow up with Dr. Serrano in the [place] office for device interrogation on 08/04/16 at 9:00 am. The patient has been seen in conjunction with Dr. Barger who agrees with the assessment and plan of care. Subjective Date of service: 08/02/16 Principal diagnosis: acute on chronic systolic heart failure Interval history: The patient is resting in bed. He is breathing better today. Objective Last Vital Signs Temp 97.9 F 08/02/16 07:40 Pulse 71 08/02/16 09:29 Resp 19 08/02/16 09:29 BP 112/69 08/02/16 07:40 Pulse Ox 92 08/02/16 09:25 - Physical Examination General: No Apparent Distress HEENT: Positive: Normocephaly, Mucus Membranes Moist Neck: Positive: neck supple, trachea midline Cardiac: Positive: Reg Rate and Rhythm, S1/S2 Lungs: Positive: Rhonchi Neuro: Positive: Grossly Intact Abdomen: Positive: Soft, Active Bowel Sounds. Negative: Tender Skin: Positive: Clear. Negative: Rash Extremities: Present: normal. Absent: edema - Labs and Meds CBC 08/02/16 Range/Units 04:50 WBC 9.7 (4.5-11.0) K/mm3 RBC 3.77 (3.65-5.03) M/mm3 Hgb 10.4 L (11.8-15.2) gm/dl Hct 32.4 L (35.5-45.6) % Plt Count 191 (140-440) K/mm3 Comprehensive Metabolic Panel 08/02/16 Range/Units 04:50 Sodium 135 L (137-145) mmol/L Potassium 4.9 (3.6-5.0) mmol/L Chloride 93.5 L (98-107) mmol/L Carbon Dioxide 34 H (22-30) mmol/L BUN 26 H (9-20) mg/dL Creatinine 1.1 (0.8-1.5) mg/dL Glucose 153 H (75-100) mg/dL Calcium 8.1 L (8.4-10.2) mg/dL - Imaging and Cardiology EKG: image reviewed Echo: report reviewed (01/2016: EF 25-30%) - Telemetry EKG Rhythm: Paced Pacemaker: ventricular pacing w/capt
[2016-08-02] MEDS: PULMICORT IH SCH (09:10)
[2016-08-02] MEDS: BROVANA NEBU IH SCH (09:15)
[2016-08-02] MEDS: DOXYCYCLINE HYCLATE 100 MG in NACL 0.9% 250ML 250 ML IV SCH (10:45)
[2016-08-02] MEDS: IMDUR PO SCH (10:47)
[2016-08-02] MEDS: ZYLOPRIM PO SCH (10:47)
[2016-08-02] MEDS: COREG PO SCH (10:49)
[2016-08-02] MEDS: COZAAR PO SCH (10:50)
[2016-08-02] MEDS: APRESOLINE PO SCH (10:51)
[2016-08-02] MEDS: XARELTO PO SCH (10:52)
[2016-08-02] MEDS: LASIX IV SCH (10:53)
--- NOTE | 2016-08-02 11:22 | Discharge Summary ---
Providers - Providers Date of Admission: 08/01/16 05:11 Attending physician: EVELYN STOVER MD Hospitalization Condition: Good Hospital course: 61M with NICM who presented with vague chest pain, he was found to have a fractured atrial lead of his AICD/PM, he was seen by cardiology who will see him as an outpatient and address fixing /replacement of the device as an outpatient. He suffered a mild exacerbation of COPD for which he was given abx, nebs and steroids, after which he improved Discharge diagnosis 1. Chest Pain due to AICD/PM malfunction 2. NICM- chronic systolic CHF 3. Chronic Afib 4. COPD exacerbation Follow up with Dr. Serrano in the [place] office for device interrogation on 08/04/16 at 9:00 am. Disposition: DISCHARGED TO HOME OR SELFCARE Time spent for discharge: 35 minutes Core Measure Documentation - Palliative Care Palliative Care/ Comfort Measures: Not Applicable - Core Measures Any of the following diagnoses?: heart failure - Heart Failure Discharge Requirements WOLFGANG/ARB for LVSD if EF <40%: Yes Beta robert at discharge: Yes Exam - Constitutional Vitals: Temp Pulse Resp BP Pulse Ox 97.9 F 71 19 112/69 92 08/02/16 07:40 08/02/16 09:29 08/02/16 09:29 08/02/16 10:51 08/02/16 09:25 General appearance: Present: no acute distress, well-nourished - EENT Eyes: Present: PERRL ENT: hearing intact, clear oral mucosa - Neck Neck: Present: supple, normal ROM - Respiratory Respiratory effort: normal Respiratory: bilateral: CTA - Cardiovascular Heart Sounds: Present: S1 & S2. Absent: rub, click - Extremities Extremities: pulses symmetrical, No edema Peripheral Pulses: within normal limits - Abdominal General gastrointestinal: Present: soft, non-tender, non-distended, normal bowel sounds Male genitourinary: Present: normal - Integumentary Integumentary: Present: clear, warm, dry - Musculoskeletal Musculoskeletal: gait normal, strength equal bilaterally - Psychiatric Psychiatric: appropriate mood/affect, intact judgment & insight - Neurologic Neurologic: CNII-XII intact, moves all extremities Plan Follow up with: DR SEKOU [Other] - 3-5 Days Prescriptions: Azithromycin [Zithromax TAB] 250 mg PO QDAY #4 tablet Prednisone [predniSONE 5 mg (6-Day Pack, 21 Tabs)] 5 mg PO .TAPER #1 tab.ds.pk
[2016-08-02] MEDS ORDERED: ROBITUSSIN PO PRN (12:14)
[2016-08-02 13:13] VITALS: BP 103/59
--- NOTE | 2016-08-02 13:41 | Admit Criteria Form ---
Admission Criteria Documentation: HEART FAILURE Clinical Indications for Admission to Inpatient Care (Place 'X' for any and all applicable criteria): Admission is indicated by ANY ONE of the following(1)(2)(3)(4): [ ]I. Severe electrolyte abnormalities requiring inpatient care(9) [ ]II. Hemodynamic instability [ ]III. Anasarca [ ]IV. Acute cardiac ischemia causing or associated with failure (Also use Angina or Myocardial Infarction as appropriate) [ ]V. Cardiac arrhythmias of immediate concern [ ]. Precipitating cause for acute decompensation (eg, pneumonia, pulmonary embolism) requires inpatient care [ ]VII. Pulmonary edema that is very severe (eg, mechanical ventilation needed, imminent or likely, need for 100% oxygen to keep oxygen saturation above 90%) [ ]VIII. Inpatient admission required rather than observation care (Also use Heart Failure: Observation Care as appropriate) because of ANY ONE of the following: [ ]a) Pulmonary edema that is severe or worsening as indicated by ALL of the following: [ ]i) New need for oxygen therapy to keep oxygen saturation above 90% (or increased FiO2 need from baseline) [ ]ii) Has not improved sufficiently with emergency department or observation care IV diuretics or other heart failure treatments[C] [ ]b) Cognitive impairment that is severe or persistent [ ]c) Increased creatinine (new on laboratory test) with reduction of more than 50% in estimated glomerular filtration rate from baseline. [ ]d) Acute renal insufficiency (progressively (ongoing) rising creatinine (known from past laboratory test) with reduction of more than 25% in estimated glomerular filtration rate from baseline) [ ]e) Acute peripheral ischemia (eg, pulseless, cool, mottled, or cyanotic extremity) [ ]f) Acute renal failure [X]g) Supplemental O2 or respiratory treatment for >24 hr that are performable only in acute inpatient setting [ ]h) Pulmonary artery catheter monitoring [X]i) Other condition, treatment or monitoring requiring inpatient admission [ ]IX. Contraindications and/or Inappropriate clinical situations for Observational Care in patients with Heart Failure, when ANY ONE of the following is required: [ ]a) Patient with High risk of cardiac embolism (e.g, patients with previous cardiac embolism, LVEF < 40%, age >75 and patients with prosthetic valve) 18 [ ]b) Patient with Moderate risk including DM patient, CAD and patient aged 65-75 [ ]c) Patient with any change in cardiac biomarker especially troponin should be managed as high risk in an inpatient setting 19 [ ]d) Physician judgement irrespective of ECG and other diagnostic findings 20 [ ]e) Patients with hyponatremia have high risk for mortality and require more extensive care and length of stay 21 [ ]f) Need for large volume diuresis 21 [ ]g) Presence of renal insufficiency or hypotension limiting speed of diuresis 21 [ ]h) Acute cardiac Ischemia in the elderly 21 [ ]i) Patients with a 30 day risk of mortality based on a multidimensional prognostic index (MPI) [J,]21 [ ]X. General contraindications and/or Inappropriate clinical situations for Observational Care in patients with Heart Failure, when ANY ONE of the following is required: [ ]a) Prediction of prolongation of LOS based on ANY ONE of the following may be considered as a contraindication for observational care 2, 3, 4, 5, 6, 7, 8 , 9, 10, 11 [ ]i) Age > 65 yrs. [ ]ii) Patient arriving by ambulance [ ]iii) Patient with high acuity [ ]iv) Patient requiring vital sign monitoring [ ]v) Patient on IV medication [ ]b) Systolic blood pressures 180mmHg 3,12 [ ]c) Patient with altered mental status including delirium and other alteration of consciousness, (3) [ ]d) Patient whose discharge disposition will be to a group home home or rehabilitation home should not be managed in Emergency Department Observation Unit. CMS rule requires 3 days hospital stay before such placement.3,13 [ ]e) Patient with failure to thrive due to broad array of etiologies 3,16,17 [ ]f) Inability to ambulate 3,14 Extended stay beyond goal length of stay may be needed for(1)(3)(21)(25): [ ]a) Cardiac ischemia, confirmed or suspected as precipitant [ ]b) Cardiogenic shock or refractory pulmonary edema [ ]c) Acute kidney injury or renal failure [ ]d) Respiratory failure (eg, need for noninvasive or invasive mechanical ventilation) (23) [ ]e) Concomitant pneumonia or significant electrolyte abnormality (eg, severe hyponatremia) [ ]f) Newly diagnosed (new onset) atrial fibrillation [ ]g) Stage IV chronic kidney disease (estimated glomerular filtration rate of less than 30 mL/min/1.73m2 (0.50 mL/sec/1.73m2), and not previously on chronic dialysis The original [facility] content created by [facility] has been revised. The portions of the content which have been revised are identified through the use of italic text or in bold, and [facility] has neither reviewed nor approved the modified material. All other unmodified content is copyright [facility]. Please see references footnoted in the original [facility] edition 2016 Admission Criteria Met: Yes
[2016-08-02] MEDS ORDERED: VIBRAMYCIN PO SCH (22:00)
== END 2016-08-02 17:51 | disposition home or self-care (01) | DRG 190 ==
LOC: ED 02:47 → 4A 05:11
PROVIDERS: ADMIT Hospitalist; ATTEND Internal Medicine
PROC: 5A09357 Assistance with Respiratory Ventilation, Less than 24 Consecutive Hours, Continuous Positive Airway Pressure (ICD-10-PCS; principal; 2016-08-01)
DX: J44.1 Chronic obstructive pulmonary disease with (acute) exacerbation (principal); I50.23 Acute on chronic systolic (congestive) heart failure; I42.9 Cardiomyopathy, unspecified; I11.0 Hypertensive heart disease with heart failure; I25.10 Atherosclerotic heart disease of native coronary artery without angina pectoris; E78.5 Hyperlipidemia, unspecified; M19.90 Unspecified osteoarthritis, unspecified site; G43.909 Migraine, unspecified, not intractable, without status migrainosus; J45.909 Unspecified asthma, uncomplicated; M10.9 Gout, unspecified; I48.2 Chronic atrial fibrillation; I73.9 Peripheral vascular disease, unspecified; Z88.0 Allergy status to penicillin; Z86.711 Personal history of pulmonary embolism; Z79.01 Long term (current) use of anticoagulants; Z79.899 Other long term (current) drug therapy; I25.2 Old myocardial infarction; Z86.718 Personal history of other venous thrombosis and embolism; Z95.5 Presence of coronary angioplasty implant and graft; Z98.890 Other specified postprocedural states; Z87.891 Personal history of nicotine dependence; Z95.810 Presence of automatic (implantable) cardiac defibrillator; Z95.2 Presence of prosthetic heart valve; Z95.820 Peripheral vascular angioplasty status with implants and grafts
CPT/HCPCS: 36415; 71010; 71275; 80048; 80053; 80162; 82140; 82962; 84484; 85007; 85025; 85379; 85610; 85730; 93005; 93010; 94640; 94644; 94760; 96365; 96366; 96368; 96375; A9270-GY; J1940; J2920; J2930; J3010; J3475; J7050; Q9967

== ENCOUNTER 2017-03-24 04:47 | Inpatient (IN) | payer MEDICARE ==
[2017-03-24 05:52] LABS: Basophils % (Auto) 0.6 % (0.0-1.8); Hematocrit 44.2 % (35.5-45.6); Hemoglobin 14.5 gm/dl (11.8-15.2); Mean Corpuscular HGB Conc 33 % (32-34); Mean Corpuscular Hemoglobin 31 pg (28-32); Mean Corpuscular Volume 94 fl (84-94); Platelet Count 156 K/mm3 (140-440); Red Cell Distribution Width 16.3 % (13.2-15.2); White Blood Count 5.9 K/mm3 (4.5-11.0)
[2017-03-24 06:17] LABS: Anion Gap 17 mmol/L; BUN/Creatinine Ratio 16.36; Blood Urea Nitrogen 18 mg/dL (9-20); Calcium 8.9 mg/dL (8.4-10.2); Carbon Dioxide 32 mmol/L (22-30); Glucose 118 mg/dL (75-100); Potassium 4.5 mmol/L (3.6-5.0); Sodium 143 mmol/L (137-145)
[2017-03-24 06:41] LABS: Cholesterol 177 mg/dL (50-199); HDL Cholesterol 61 mg/dL (40-59); LDL Cholesterol,Direct 101 mg/dL (50-130); Triglycerides 75 mg/dL (2-149)
[2017-03-24] MEDS ORDERED: LASIX IV ONE (06:47)
[2017-03-24] MEDS ORDERED: ZOFRAN IV ONE (06:47)
[2017-03-24] MEDS ORDERED: MORPHINE IV ONE (06:47)
--- NOTE | 2017-03-24 06:53 | Emergency Department Report ---
ED Shortness of Breath HPI - General Chief Complaint: Dyspnea/Respdistress Stated Complaint: KAYLAN Time Seen by Provider: 03/24/17 06:42 Source: EMS Mode of arrival: Stretcher Limitations: No Limitations - History of Present Illness Initial Comments: 61 years old male history of congestive heart failure COPD A. fib presented with shortness of breath, difficulty breathing since last night patient also complain of chest pain left sided tightness in nature. Denied any fever nausea or vomiting. MD Complaint: shortness of breath, cough, chest pain -: Last night Consistency: constant Known History Of: COPD, congestive heart failure Associated Symptoms: chest pain, cough, sputum production - Related Data Home Medications Medication Instructions Recorded Confirmed Last Taken Digoxin 250 mcg PO DAILY 12/31/14 03/24/17 03/23/17 Carvedilol [Coreg] 25 mg PO BID 03/13/15 03/24/17 03/23/17 Losartan [Cozaar] 100 mg PO QDAY 03/13/15 03/24/17 03/23/17 hydrALAZINE [Apresoline TAB] 25 mg PO BID 03/13/15 03/24/17 03/23/17 Rivaroxaban [Xarelto] 20 mg PO QDAY 01/27/16 03/24/17 03/23/17 Allopurinol [Zyloprim] 400 mg PO QDAY 10/30/16 03/24/17 03/23/17 traMADol [Ultram] 50 mg PO Q8HR PRN 03/24/17 03/24/17 03/23/17 Previous Rx's Medication Instructions Recorded Last Taken Type Furosemide [Lasix] 40 mg PO DAILY #20 tablet 08/15/14 03/23/17 Rx Ipratropium/Albuterol Sulfate 1 ampul IH TIDRT #1 ampul.neb 08/15/14 03/23/17 Rx [DUONEB *Not for PRN Use*] Fluticasone/Salmeterol [Advair 1 puff IH BID #1 disk.w.dev 02/10/15 03/23/17 Rx Diskus 500-50 mcg] AtorvaSTATin [Lipitor] 40 mg PO DAILY #30 tablet 07/26/16 03/23/17 Rx Allergies Allergy/AdvReac Type Severity Reaction Status Date / Time Penicillins Allergy Unknown Verified 02/07/14 22:58 ED Review of Systems ROS: Stated complaint: KAYLAN Other details as noted in HPI Comment: All other systems reviewed and negative Constitutional: denies: chills, fever Respiratory: cough, orthopnea, shortness of breath, SOB with exertion. denies: wheezing Cardiovascular: chest pain, dyspnea on exertion, orthopnea. denies: palpitations, edema Gastrointestinal: denies: nausea, vomiting Neurological: denies: headache, weakness ED Past Medical Hx - Past Medical History Previous Medical History?: Yes Hx Hypertension: Yes Hx Heart Attack/AMI: Yes (2011) Hx Congestive Heart Failure: Yes Hx Diabetes: No Hx Deep Vein Thrombosis: Yes Hx Pulmonary Embolism: Yes Hx Liver Disease: No Hx Renal Disease: No Hx Arthritis: Yes Hx Headaches / Migraines: Yes Hx Seizures: No Hx Asthma: Yes Hx COPD: Yes Hx HIV: No Additional medical history: a-fib. HLD. GOUT. ICD - Surgical History Past Surgical History?: Yes Hx Coronary Stent: Yes (2012) Hx Open Heart Surgery: No Hx Pacemaker: Yes Hx Internal Defibrillator: Yes Hx Cholecystectomy: No Hx Appendectomy: No Hx Breast Surgery: No Additional Surgical History: spinal surgery - Social History Smoking Status: Former Smoker Substance Use Type: None - Medications Home Medications: Home Medications Medication Instructions Recorded Confirmed Last Taken Type Furosemide [Lasix] 40 mg PO DAILY #20 tablet 08/15/14 03/24/17 03/23/17 Rx Ipratropium/Albuterol Sulfate 1 ampul IH TIDRT #1 ampul.neb 08/15/14 03/24/17 Rx [DUONEB *Not for PRN Use*] Digoxin 250 mcg PO DAILY 12/31/14 03/24/17 03/23/17 History Fluticasone/Salmeterol [Advair 1 puff IH BID #1 disk.w.dev 02/10/15 03/24/1703/01 Rx Diskus 500-50 mcg] Carvedilol [Coreg] 25 mg PO BID 03/13/15 03/24/17 03/23/17 History Losartan [Cozaar] 100 mg PO QDAY 03/13/15 03/24/17 03/23/17 History hydrALAZINE [Apresoline TAB] 25 mg PO BID 03/13/15 03/24/17 03/23/17 History Rivaroxaban [Xarelto] 20 mg PO QDAY 01/27/16 03/24/17 03/23/17 History AtorvaSTATin [Lipitor] 40 mg PO DAILY #30 tablet 07/26/16 03/24/17 03/23/17 Rx Allopurinol [Zyloprim] 400 mg PO QDAY 10/30/16 03/24/17 03/23/17 History traMADol [Ultram] 50 mg PO Q8HR PRN 03/24/17 03/24/17 03/23/17 History ED Physical Exam - General Limitations: No Limitations General appearance: alert, in distress (moderate respiratory distress) - Head Head exam: Present: atraumatic, normocephalic - Eye Eye exam: Present: normal appearance - ENT ENT exam: Present: normal exam - Neck Neck exam: Present: normal inspection, full ROM. Absent: meningismus - Respiratory Respiratory exam: Present: respiratory distress, rales, decreased breath sounds. Absent: wheezes, rhonchi, stridor - Cardiovascular Cardiovascular Exam: Present: irregular rhythm - GI/Abdominal GI/Abdominal exam: Present: soft. Absent: distended, tenderness, guarding, normal bowel sounds, mass, bruit, pulsatile mass, hernia - Back Exam Back exam: Present: normal inspection. Absent: CVA tenderness (R), CVA tenderness (L) - Neurological Exam Neurological exam: Present: alert, oriented X3, CN II-XII intact, normal gait - Skin Skin exam: Present: warm, normal color ED Course Vital Signs 03/24/17 03/24/17 03/24/17 04:40 04:56 05:00 Temperature Pulse Rate 81 70 70 Respiratory 15 16 17 Rate Blood Pressure 100/91 109/91 Blood Pressure [Right] O2 Sat by Pulse 100 100 100 Oximetry 03/24/17 03/24/17 03/24/17 05:02 05:45 06:03 Temperature Pulse Rate 70 70 Respiratory 20 21 16 Rate Blood Pressure 124/84 132/81 Blood Pressure [Right] O2 Sat by Pulse 100 100 100 Oximetry 03/24/17 03/24/17 07:35 10:00 Temperature 98.4 F Pulse Rate 70 70 Respiratory 22 22 Rate Blood Pressure Blood Pressure 121/78 [Right] O2 Sat by Pulse 92 99 Oximetry - Reevaluation(s) Reevaluation #1: 03/24/17 08:[address] Layne for admission, presented patient and he agreed to admit the patient to his service ED Medical Decision Making - Lab Data Result diagrams: 03/24/17 05:35 03/24/17 05:35 Critical care attestation.: If time is entered above; I have spent that time in minutes in the direct care of this critically ill patient, excluding procedure time. ED Disposition Clinical Impression: CHF exacerbation Disposition: OP ADMIT IP TO THIS HOSP Is pt being admited?: Yes Condition: Stable Referrals: PRIMARY CARE, [Primary Care Provider] - 3-5 Days
[2017-03-24] MEDS ORDERED: BABY ASPIRIN PO ONE (07:34)
--- NOTE | 2017-03-24 09:19 | XRay Report ---
Single view chest: Compared to 10/30/16. History: Shortness of breath. Findings: Cardiomegaly. Trachea is midline. Stable pacemaker. No consolidation, pneumothorax or pleural effusion. No interval change. Impression: No acute cardiopulmonary findings.
--- NOTE | 2017-03-24 10:43 | History and Physical Report ---
History of Present Illness Date of examination: 03/24/17 Date of admission: 03/24/17 Chief complaint: SOB History of present illness: 61 years old male history of congestive heart failure Ef 25 to 30%, COPD, A. fib on xarelto presented with shortness of breast difficulty breathing since last night along with left sided chest tightness. He Denied any fever nausea or vomiting. he is symptomatic even on rest, without any relieving factor and symptom gets worse with minimal exertion. He is unable to lay flat and also c/o scrotal swelling. in the Er he noted to be hypoxic and placed on NRB. he also given 1 dose of iv solumedrol and iv lasix. He also noted to have elevated troponin and CXR showed no acute infiltrates. he is getting admitted for further evaluation and management. His ICD was interrogated early this year. Past medical History: h/o CAD, COPD, DVT (history of DVT and pulmonary embolism) , heart failure (systolic dysfunction) Past surgical History: s/p ICD and hernia repair Social History: Lives with family, denies any smoking, drinking and elicit drug abuse. Family History: Significant for hypertension Review of System: Constitutional: no fever, no chills, no weight loss Ears, eyes, nose, mouth and throat: no nasal congestion, no nasal discharge, no sinus pressure, no vision change, no red eye. Neck: No neck pain or rigidity. Cardiovascular: + chest pain, + orthopnea, + palpitations, no leg swelling Respiratory: + shortness of breath, + cough, no congestion, no wheezing Gastrointestinal: no abdominal pain, no nausea, no vomiting Genitourinary : no dysuria, no hematuria, + scrotal swelling Musculoskeletal: no joint swelling or muscle ache Integumentary: no rash, no pruritis Neurological: no parathesias, no numbness, no tingling Endocrine: no cold or heat intolerance, no polyuria or polydipsia Hematologic/Lymphatic: no easy bruising, no easy bleeding, no gland swelling Allergic/Immunologic: no urticaria, no angioedema. Medications and Allergies Allergies Allergy/AdvReac Type Severity Reaction Status Date / Time Penicillins Allergy Unknown Verified 02/07/14 22:58 Home Medications Medication Instructions Recorded Confirmed Last Taken Type Furosemide [Lasix] 40 mg PO DAILY #20 tablet 08/15/14 03/24/17 03/23/17 Rx Ipratropium/Albuterol Sulfate 1 ampul IH TIDRT #1 ampul.neb 08/15/14 03/24/17 Rx [DUONEB *Not for PRN Use*] Digoxin 250 mcg PO DAILY 12/31/14 03/24/17 03/23/17 History Fluticasone/Salmeterol [Advair 1 puff IH BID #1 disk.w.dev 02/10/15 03/24/1703/01 Rx Diskus 500-50 mcg] Carvedilol [Coreg] 25 mg PO BID 03/13/15 03/24/17 03/23/17 History Losartan [Cozaar] 100 mg PO QDAY 03/13/15 03/24/17 03/23/17 History hydrALAZINE [Apresoline TAB] 25 mg PO BID 03/13/15 03/24/17 03/23/17 History Rivaroxaban [Xarelto] 20 mg PO QDAY 01/27/16 03/24/17 03/23/17 History AtorvaSTATin [Lipitor] 40 mg PO DAILY #30 tablet 07/26/16 03/24/17 03/23/17 Rx Allopurinol [Zyloprim] 400 mg PO QDAY 10/30/16 03/24/17 03/23/17 History traMADol [Ultram] 50 mg PO Q8HR PRN 03/24/17 03/24/17 03/23/17 History Exam - Physical Exam Narrative exam: GENERAL: This is well-developed well-nourished AAM lying on bed appeared to be in no discomfort. HEENT: Normocephalic. Atraumatic. Extraocular motions are intact. No conjunctival congestion or icterus. Patient has moist mucous membranes. External auditory canal and nares patent bilaterally. NECK: Supple. Trachea midline. no thyromagaly or lymphadenopathy. CHEST/LUNGS: Coarse BS auscultated bilaterally. There is + respiratory distress noted, breathing labored. + wheezes. HEART/CARDIOVASCULAR: S1 and S2 positive. PMI at the apex. There is no gallop rub or murmur. ABDOMEN: Abdomen is soft, nontender. Patient has normal bowel sounds. There is no abdominal distention. No organomagaly or rigidity. mild scrotal swelling with minimal tenderness. SKIN: There is no rash, no erythrema. + diaphoresis. Warm and dry. NEUROLOGY: The patient is awake, alert, and oriented. The patient is cooperative. The patient has normal speech. No focal motor deficit. MUSCULOSKELETAL: No joint effusion or tenderness. Muscle strength equal bilaterally. No muscle wasting. EXTRIMITY: No edema, cyanosis or clubbing. PSYCH: No depression or anxiety noted. Cooperative. - Constitutional Vitals: Temp Pulse Resp BP Pulse Ox 98.4 F 70 22 121/78 99 03/24/17 07:35 03/24/17 10:00 03/24/17 10:00 03/24/17 10:00 03/24/17 10:00 Results - Labs CBC & Chem 7: 03/24/17 05:35 03/25/17 05:46 Labs: Abnormal lab results 03/24/17 03/24/17 03/24/17 Range/Units 05:35 05:35 07:18 RDW 16.3 H (13.2-15.2) % Lymph # 1.0 L (1.2-5.4) K/mm3 Seg Neutrophils % 76.1 H (40.0-70.0) % Carbon Dioxide 32 H (22-30) mmol/L Glucose 118 H (75-100) mg/dL Troponin T 0.080 H 0.081 H (0.00-0.029) ng/mL NT-Pro-B Natriuret Pep 1573 H (0-900) pg/mL HDL Cholesterol 61 H (40-59) mg/dL - Imaging and Cardiology Chest x-ray: report reviewed (no acute finding) Assessment and Plan Acute on chronic respiratory failure - We'll admit the patient to telemetry - likely from COPD exacerbation COPD with acute exacerbation - Will provide scheduled nebulizers and breathing treatment - Place on empiric steroid and antibiotic - will get sputum culture, chest x-ray was unremarkable - Provide supplemental oxygen to keep oxygen saturation above 92%, and BiPAP as needed - Consider to consult pulmonary if no improvement in next 24 hours Acute on Chronic systolic heart failure with systolic dysfunction, - We will resume home medications, monitor BP - Cardiology consult placed for systolic dysfunction - cont lasix po Hypertension, well controlled - resume home meds but lowered the dose of BB and ACEI Elevated troponin, likely from demand ischemia from COPD exacerbation - cont to trend troponin, follow cardiology recommendation - cont aspirin, statin - morphin as needed for pain Testicular swelling - obtain testicular ultrasound Atrial fibrillation on chronic anticoagulation - We'll continue home dose of Xalelto Dvt Px - no DVT prophylaxis needed as patient will be on xarelto.
[2017-03-24] MEDS ORDERED: PROVENTIL IH PRN (11:22)
[2017-03-24] MEDS ORDERED: LOVENOX SUB-Q SCH (12:00)
--- NOTE | 2017-03-24 12:15 | Consultation ---
History of Present Illness Consult date: 03/24/17 Requesting physician: REGINO GOODMAN Consult reason: shortness of breath History of present illness: This is a 61-year-old gentleman with history of nonischemic cardiomyopathy, COPD, H fibrillation who has a baseline shortness of breath with exertion [place] heart classification 2-3 patient states will cover 3:00 in the morning with acute shortness of breath in. [place] something on his defibrillator site and could not feel any better came to the ED patient received nebulization treatments and was admitted for acute shortness of breath. Patient patient has some chest pain. Denies any fever or chills but was felt diaphoretic and no nausea no vomiting no syncope patient states last interrogation was earlier part of this year. Patient states compliance with medication and diet patient gets weekly check with the [facility] and has been relatively stable last several months. Past History Past Medical History: heart failure, hypertension, hyperlipidemia Past Surgical History: hernia repair, Other (aicd ) Social history: smoking (ex smoker). denies: alcohol abuse, prescription drug abuse, IV drug use Family history: denies: no significant family history Medications and Allergies Allergies Allergy/AdvReac Type Severity Reaction Status Date / Time Penicillins Allergy Unknown Verified 02/07/14 22:58 Home Medications Medication Instructions Recorded Confirmed Last Taken Type Furosemide [Lasix] 40 mg PO DAILY #20 tablet 08/15/14 03/24/17 03/23/17 Rx Ipratropium/Albuterol Sulfate 1 ampul IH TIDRT #1 ampul.neb 08/15/14 03/24/17 Rx [DUONEB *Not for PRN Use*] Digoxin 250 mcg PO DAILY 12/31/14 03/24/17 03/23/17 History Fluticasone/Salmeterol [Advair 1 puff IH BID #1 disk.w.dev 02/10/15 03/24/1703/01 Rx Diskus 500-50 mcg] Carvedilol [Coreg] 25 mg PO BID 03/13/15 03/24/17 03/23/17 History Losartan [Cozaar] 100 mg PO QDAY 03/13/15 03/24/17 03/23/17 History hydrALAZINE [Apresoline TAB] 25 mg PO BID 08/03/24/17 03/23/17 History Rivaroxaban [Xarelto] 20 mg PO QDAY 01/27/16 03/24/17 03/23/17 History AtorvaSTATin [Lipitor] 40 mg PO DAILY #30 tablet 07/26/16 03/24/17 03/23/17 Rx Allopurinol [Zyloprim] 400 mg PO QDAY 10/30/16 03/24/17 03/23/17 History traMADol [Ultram] 50 mg PO Q8HR PRN 03/24/17 03/24/17 03/23/17 History Active Meds: Active Medications Albuterol (Proventil) 2.5 mg IH Q3HRT PRN PRN Reason: Shortness Of Breath Albuterol/Ipratropium (Duoneb *Not For Prn Use*) 1 ampul IH Q6HRT [facility] Allopurinol (Zyloprim) 400 mg PO QDAY [facility] Arformoterol Tartrate (Brovana Nebu) 15 mcg IH Q12HRT [facility] Aspirin (Aspirin) 325 mg PO QDAY [facility] Atorvastatin Calcium (Lipitor) 40 mg PO QHS [facility] Budesonide (Pulmicort) 0.5 mg IH Q12HRT [facility] Carvedilol (Coreg) 3.125 mg PO BID [facility] Digoxin (Lanoxin) 0.25 mg PO DAILY [facility] Furosemide (Lasix) 40 mg PO DAILY [facility] Losartan Potassium (Cozaar) 50 mg PO QDAY [facility] Methylprednisolone Sodium Succinate (Solu-Medrol) 40 mg IV QDAY [facility] Rivaroxaban (Xarelto) 20 mg PO QPMDIAB [facility] PRN Reason: Protocol Tramadol HCl (Ultram) 50 mg PO Q8HR PRN PRN Reason: Pain Review of Systems All systems: negative (HPI) Physical Examination Vital Signs Pulse Resp Pulse Ox 81 15 100 03/24/17 04:40 03/24/17 04:40 03/24/17 04:40 General appearance: mild distress HEENT: Positive: PERRL, EOMI Neck: Positive: neck supple Cardiac: Positive: Reg Rate and Rhythm Lungs: Positive: Decreased Breath Sounds, Wheezes Neuro: Positive: Grossly Intact Abdomen: Positive: Soft, Active Bowel Sounds. Negative: Tender, Distended Male genitourinary: Positive: normal Skin: Positive: Clear Extremities: Present: normal. Absent: edema Results 03/24/17 05:35 03/24/17 05:35 - Imaging and Cardiology Cardiac cath: report reviewed (05/2016 normal coronary severe LV dysfunction) EKG interpretations - Telemetry EKG Rhythm: Paced Assessment and Plan Acute respiratory failure Acute on chronic COPD exaggeration Possible acute on chronic systolic heart failure Chest pain Hypertension Testicular mass questionable Hyperlipidemia Recommend 1 dose of IV Lasix and monitor kidney function we get it AICD interrogated for possible shocks and would recommend IV steroids for patient's possible COPD exacerbation agree with reduce doses of losartan and Coreg at this time
[2017-03-24] MEDS: ZYLOPRIM PO SCH (13:29)
[2017-03-24] MEDS: ULTRAM PO PRN (13:33)
[2017-03-24] MEDS: LANOXIN PO SCH (14:11)
[2017-03-24] MEDS: DUONEB *Not for PRN Use IH SCH ×2 (14:36→21:04)
[2017-03-24] MEDS: XARELTO PO SCH (17:19)
[2017-03-24] MEDS: MORPHINE IV PRN (20:41)
[2017-03-24] MEDS: PULMICORT IH SCH (21:05)
[2017-03-24] MEDS: BROVANA NEBU IH SCH (21:05)
[2017-03-24] MEDS ORDERED: NON-FORMULARY (Fluticasone/Salmeterol [Advair Diskus 500-50 Mcg] 1 PUFF) IH SCH (22:00)
[2017-03-24] MEDS ORDERED: APRESOLINE PO SCH (22:00)
[2017-03-24] MEDS ORDERED: COREG PO SCH (22:00)
[2017-03-24] MEDS: COREG PO SCH (22:23)
[2017-03-25] MEDS: DUONEB *Not for PRN Use IH SCH ×4 (02:21→19:56)
[2017-03-25] MEDS: MORPHINE IV PRN ×2 (03:34→21:41)
--- NOTE | 2017-03-25 07:03 | Ultrasound Report ---
FINAL REPORT EXAM: US TESTICULAR DOPPLER COMP HISTORY: testicular swelling COMPARISONS: None FINDINGS: Grayscale, color and spectral Doppler ultrasound evaluation of the testicles The right testicle measures 2.8 x 2.3 x 3.5 cm and demonstrates normal echotexture and color and spectral Doppler evaluation. The epididymis is within normal limits. No intra or extratesticular mass. Large hydrocele. No varicocele. The left testicle measures 2.4 x 2.4 x 3.1 cm and demonstrates normal echotexture and color and spectral Doppler evaluation. The epididymis is within normal limits. No intra or extratesticular mass. Large hydrocele. No varicocele. IMPRESSION: Large bilateral hydrocele. Normal ultrasound examination of the testicles.
[2017-03-25 07:09] LABS: Anion Gap 16 mmol/L; BUN/Creatinine Ratio 28.75; Blood Urea Nitrogen 23 mg/dL (9-20); Calcium 8.2 mg/dL (8.4-10.2); Carbon Dioxide 28 mmol/L (22-30); Chloride 97.4 mmol/L (98-107); Glucose 119 mg/dL (75-100); Potassium 4.8 mmol/L (3.6-5.0); Sodium 137 mmol/L (137-145)
[2017-03-25] MEDS: BROVANA NEBU IH SCH ×2 (08:04→19:56)
[2017-03-25] MEDS: PULMICORT IH SCH ×2 (08:04→19:56)
[2017-03-25] MEDS: LASIX PO SCH (09:53)
[2017-03-25] MEDS: ASPIRIN PO SCH (09:53)
[2017-03-25] MEDS: ZYLOPRIM PO SCH (09:54)
[2017-03-25] MEDS: COREG PO SCH (09:55)
[2017-03-25] MEDS: LANOXIN PO SCH (09:57)
[2017-03-25] MEDS: ULTRAM PO PRN ×2 (09:57→16:50)
[2017-03-25] MEDS ORDERED: ZYLOPRIM PO SCH (10:00)
[2017-03-25] MEDS ORDERED: NON-FORMULARY (Losartan [Cozaar] 100 MG) PO SCH (10:00)
[2017-03-25] MEDS ORDERED: LOSARTAN 50 MG PO SCH (10:00)
--- NOTE | 2017-03-25 10:54 | Progress Note ---
Assessment and Plan Acute respiratory failure Acute on chronic COPD exaggeration Possible acute on chronic systolic heart failure Chest pain Hypertension Testicular mass questionable Hyperlipidemia Non-STEMI type II Proximal atrial fibrillation Recommend changing Coreg to Lopressor given patient's COPD exaggeration and will titrate losartan once blood pressure is improved continue COPD management as per primary Subjective Date of service: 03/25/17 Principal diagnosis: sob Interval history: Patient's shortness was still present mildly improved Objective Vital Signs Temp Pulse Pulse Resp Resp BP BP 03/25/17 09:57 129/80 03/25/17 09:55 129/80 03/25/17 05:46 97.8 F 70 22 129/80 03/25/17 02:38 77 22 03/25/17 02:24 79 20 03/25/17 01:20 97.4 F L 71 21 123/71 03/24/17 22:23 69 139/86 03/24/17 21:29 90 22 03/24/17 21:07 84 23 03/24/17 20:24 97.3 F L 69 21 139/86 03/24/17 16:14 97.4 F L 20 129/84 03/24/17 14:47 76 22 03/24/17 14:34 70 20 03/24/17 14:11 70 124/88 03/24/17 11:53 97.8 F 70 21 124/88 03/24/17 11:50 97.3 F L 71 24 146/87 03/24/17 11:12 70 03/24/17 11:11 72 21 124/88 03/24/17 11:01 71 13 124/88 Pulse Ox 03/25/17 09:57 03/25/17 09:55 03/25/17 05:46 99 03/25/17 02:38 03/25/17 02:24 03/25/17 01:20 95 03/24/17 22:23 03/24/17 21:29 03/24/17 21:07 03/24/17 20:24 99 03/24/17 16:14 03/24/17 14:47 03/24/17 14:34 03/24/17 14:11 03/24/17 11:53 99 03/24/17 11:50 100 03/24/17 11:12 03/24/17 11:11 100 03/24/17 11:01 99 - Physical Examination General: No Apparent Distress HEENT: Positive: PERRL, EOMI Neck: Positive: neck supple Cardiac: Positive: Reg Rate and Rhythm Lungs: Positive: Wheezes (mild) Neuro: Positive: Grossly Intact Abdomen: Positive: Soft, Active Bowel Sounds. Negative: Tender, Distended Skin: Positive: Clear Extremities: Present: normal. Absent: edema - Labs and Meds Comprehensive Metabolic Panel 03/25/17 Range/Units 05:46 Sodium 137 (137-145) mmol/L Potassium 4.8 (3.6-5.0) mmol/L Chloride 97.4 L (98-107) mmol/L Carbon Dioxide 28 (22-30) mmol/L BUN 23 H (9-20) mg/dL Creatinine 0.8 (0.8-1.5) mg/dL Glucose 119 H (75-100) mg/dL Calcium 8.2 L (8.4-10.2) mg/dL - Imaging and Cardiology Cardiac cath: report reviewed (05/2016 normal coronary severe LV dysfunction) - Telemetry EKG Rhythm: Paced
[2017-03-25] MEDS: COZAAR PO SCH (11:29)
[2017-03-25] MEDS: LEVAQUIN 750MG/150ML 750 MG/150 ML BAG IV SCH (11:31)
--- NOTE | 2017-03-25 13:37 | Progress Note ---
Assessment and Plan Acute on chronic respiratory failure - We'll continue to monitor the patient to telemetry - likely from COPD exacerbation COPD with acute exacerbation - Will provide scheduled nebulizers and breathing treatment - Placed on empiric steroid and antibiotic - will follow sputum culture, chest x-ray was unremarkable - continue supplemental oxygen to keep oxygen saturation above 92%, and BiPAP as needed - Consider to consult pulmonary if no improvement Acute on Chronic systolic heart failure with systolic dysfunction, - We will resume home medications, monitor BP - Cardiology consult placed for systolic dysfunction - cont lasix po, beta robert changed to lopressor Hypertension, well controlled - resumed home meds but lowered the dose of BB and ACEI Elevated troponin, likely from demand ischemia from COPD exacerbation - cont to trend troponin, - cont aspirin, statin - morphin as needed for pain Testicular swelling - obtained testicular ultrasound showed b/l hydrocele - f/u with urology outpt Atrial fibrillation on chronic anticoagulation - We'll continue home dose of Xalelto Dvt Px - no DVT prophylaxis needed as patient will be on xarelto. Subjective Date of service: 03/25/17 Principal diagnosis: sob Interval history: pt seen and examined breathing improved but still significantly has SOB tolerating diet, scrotal swelling slightly improved Objective - Exam Narrative Exam: GENERAL: This is well-developed well-nourished AAM lying on bed appeared to be in no discomfort. HEENT: Normocephalic. Atraumatic. Extraocular motions are intact. No conjunctival congestion or icterus. Patient has moist mucous membranes. External auditory canal and nares patent bilaterally. NECK: Supple. Trachea midline. no thyromagaly or lymphadenopathy. CHEST/LUNGS: Coarse BS auscultated bilaterally. There is + respiratory distress noted, breathing labored. + wheezes. HEART/CARDIOVASCULAR: S1 and S2 positive. PMI at the apex. There is no gallop rub or murmur. ABDOMEN: Abdomen is soft, nontender. Patient has normal bowel sounds. There is no abdominal distention. No organomagaly or rigidity. mild scrotal swelling with minimal tenderness. SKIN: There is no rash, no erythrema. + diaphoresis. Warm and dry. NEUROLOGY: The patient is awake, alert, and oriented. The patient is cooperative. The patient has normal speech. No focal motor deficit. MUSCULOSKELETAL: No joint effusion or tenderness. Muscle strength equal bilaterally. No muscle wasting. EXTRIMITY: No edema, cyanosis or clubbing. PSYCH: No depression or anxiety noted. Cooperative. - Constitutional Vitals: Vital Signs - 12hr 03/25/17 03/25/17 03/25/17 02:24 02:38 05:46 Temperature 97.8 F Pulse Rate 70 Pulse Rate [ 79 77 Anterior Bilateral Throughout] Respiratory 22 Rate Respiratory 20 22 Rate [Anterior Bilateral Throughout] Blood Pressure 129/80 O2 Sat by Pulse 99 Oximetry 03/25/17 03/25/17 03/25/17 08:04 08:10 08:15 Temperature 97.3 F L Pulse Rate 70 Pulse Rate [ 68 70 Anterior Bilateral Throughout] Respiratory 20 Rate Respiratory 20 20 Rate [Anterior Bilateral Throughout] Blood Pressure 111/73 O2 Sat by Pulse 95 100 Oximetry 03/25/17 03/25/17 03/25/17 09:55 09:57 11:20 Temperature 97.4 F L Pulse Rate 70 Pulse Rate [ Anterior Bilateral Throughout] Respiratory 16 Rate Respiratory Rate [Anterior Bilateral Throughout] Blood Pressure 129/80 129/80 128/86 O2 Sat by Pulse 97 Oximetry 03/25/17 11:29 Temperature Pulse Rate 70 Pulse Rate [ Anterior Bilateral Throughout] Respiratory Rate Respiratory Rate [Anterior Bilateral Throughout] Blood Pressure O2 Sat by Pulse Oximetry - Labs CBC & Chem 7: 03/24/17 05:35 03/25/17 05:46 Labs: Abnormal lab results 03/24/17 03/25/17 Range/Units 20:14 05:46 Chloride 97.4 L (98-107) mmol/L BUN 23 H (9-20) mg/dL Glucose 119 H (75-100) mg/dL Calcium 8.2 L (8.4-10.2) mg/dL Troponin T 0.034 H D (0.00-0.029) ng/mL
[2017-03-25] MEDS: XARELTO PO SCH (16:51)
[2017-03-25] MEDS: LOPRESSOR PO SCH (21:46)
[2017-03-26] MEDS: ULTRAM PO PRN ×2 (00:57→10:30)
[2017-03-26] MEDS: DUONEB *Not for PRN Use IH SCH ×4 (01:23→20:28)
--- NOTE | 2017-03-26 02:10 | Admit Criteria Form ---
Admission Criteria Documentation: HEART FAILURE: COMMON COMPLICATIONS Clinical Indications for Inpatient Care ([place]/check or initial the applicable condition/criteria): Ongoing inpatient care may be indicated for heart failure with 1 or more of the following (1)(2)(3)(4)(5)(6)(7)(8): [ ]I. New-onset heart failure [ ]II. Acute cardiac ischemia causing or associated with failure [ ]III. Ongoing need for care for primary condition requiring frequent therapy adjustments because of changes in cardiac function (eg, drug dosage changes for drugs that are renally metabolized) [X]IV. Complications of heart failure, including 1 or more of the following: [ ]a) Hemodynamic instability [ ]b) Pericardial effusion [ ]c) Symptomatic pleural effusion(16) [ ]d) Hypoxemia [ ]e) Tachypnea [X]f) Dyspnea [ ]g) Syncope [ ]h) Altered mental status [ ]i) Acute renal insufficiency that is severe (reduction of more than 50% in estimated glomerular filtration rate from baseline) or progressive (reduction of more than 25% in estimated glomerular filtration rate from baseline, with creatinine continuing to rise) [ ]j) Debilitating anasarca (eg tissue breakdown with infection, inability to void due to edema)(E) (17) [ ]k) Clinically significant metabolic abnormalities due to heart failure (e.g., new-onset metabolic acidosis) Extended stay may be needed until ALL of the following are present(1)(3)(18)(41) (55): [ ]a) Hemodynamic stability [ ]b) Stable and effective diuretic regimen established (or patient on stable dialysis regimen if in chronic renal failure) [ ]c) Volume status acceptable on oral medication [ ]d) Breathing comfortably at rest [ ]e) Saturation of arterial oxygen greater than 90% or at acceptable baseline [ ]f) Pulmonary edema absent or improved [ ]g) Peripheral or sacral edema absent or improved [ ]h) Renal function stable and manageable at a lower level of care [ ]i) Complications (e.g., pleural effusion) resolved or manageable at a lower level of care [ ]j) Patient or caregiver has received written discharge instructions or educational material addressing activity level, diet, discharge medications, follow-up appointment, weight monitoring, and what to do if symptoms worsen. (56)(57)(58) The original [facility] [employer] content created by Sharon Gloria has been revised. The portions of the content which have been revised are identified through the use of italic text or in bold, and Sharon Gloria has neither reviewed nor approved the modified material.All other unmodified content is copyright [facility] [employer]. Please see references footnoted in the original [facility] edition 2017 Admission Criteria Met: Yes
[2017-03-26] MEDS: BROVANA NEBU IH SCH ×2 (08:12→20:27)
[2017-03-26] MEDS: PULMICORT IH SCH ×3 (08:12→20:28)
[2017-03-26] MEDS: LEVAQUIN 750MG/150ML 750 MG/150 ML BAG IV SCH (10:22)
[2017-03-26] MEDS: COZAAR PO SCH (10:26)
[2017-03-26] MEDS: ASPIRIN PO SCH (10:28)
[2017-03-26] MEDS: LASIX PO SCH (10:29)
[2017-03-26] MEDS: LANOXIN PO SCH (10:31)
[2017-03-26] MEDS: ZYLOPRIM PO SCH (10:31)
[2017-03-26] MEDS: LOPRESSOR PO SCH (10:31)
--- NOTE | 2017-03-26 10:39 | Progress Note ---
Assessment and Plan Currently stable cardiac status. Cont present cardiac regimen. Interrogate AICD. The patient has been seen in conjunction with Dr. Callahan who agrees with the assessment and plan of care. - Patient Problems (1) COPD with exacerbation Current Visit: Yes Status: Acute (2) Atypical chest pain Onset Date: 06/03/14 Current Visit: Yes Status: Acute (3) Chronic systolic heart failure Current Visit: Yes Status: Chronic (4) Non-ischemic cardiomyopathy Current Visit: Yes Status: Chronic (5) ICD (implantable cardioverter-defibrillator) in place Current Visit: Yes Status: Chronic (6) CAD (coronary artery disease) Current Visit: Yes Status: Chronic Qualifiers: Coronary Disease-Associated Artery/Lesion type: [place] artery [place] vs. transplanted heart: N Associated angina: A (7) Paroxysmal atrial fibrillation Current Visit: Yes Status: Chronic (8) Elevated troponin Onset Date: 10/01/13 Current Visit: No Status: Acute (9) HTN (hypertension) Onset Date: 12/01/13 Current Visit: Yes Status: Chronic Qualifiers: Hypertension type: essential hypertension Qualified Code(s): I10 - Essential (primary) hypertension (10) Hydrocele of testis Current Visit: Yes Status: Acute Subjective Date of service: 03/26/17 Principal diagnosis: sob Interval history: Pt resting comfortably in bed, c/o chest pain. VSS. Awaiting AICD interrogation today. Objective Last Vital Signs Temp 97.3 F L 03/26/17 08:08 Pulse 70 03/26/17 10:31 Resp 18 03/26/17 08:12 BP 139/97 03/26/17 08:08 Pulse Ox 99 03/26/17 08:13 - Physical Examination General: No Apparent Distress HEENT: Positive: PERRL, EOMI Neck: Positive: neck supple Cardiac: Positive: irregularly irregular Lungs: Positive: Wheezes (diffuse), Rhonchi Neuro: Positive: Grossly Intact Abdomen: Positive: Soft, Active Bowel Sounds. Negative: Tender, Distended /Rectal: Other (testicular swelling) Skin: Positive: Clear Extremities: Present: normal. Absent: edema - Imaging and Cardiology Cardiac cath: report reviewed (05/2016 normal coronary severe LV dysfunction) - Telemetry EKG Rhythm: Atrial Fibrillation
--- NOTE | 2017-03-26 23:35 | Progress Note ---
Assessment and Plan Assessment and Plan Acute on chronic respiratory failure - We'll continue to monitor the patient to telemetry - likely from COPD exacerbation COPD with acute exacerbation - Will provide scheduled nebulizers and breathing treatment - Placed on empiric steroid and antibiotic - will follow sputum culture, chest x-ray was unremarkable - continue supplemental oxygen to keep oxygen saturation above 92%, and BiPAP as needed - Consider to consult pulmonary if no improvement Acute on Chronic systolic heart failure with systolic dysfunction, - We will resume home medications, monitor BP - Cardiology consult placed for systolic dysfunction - cont lasix po, beta robert changed to lopressor Hypertension, well controlled - resumed home meds but lowered the dose of BB and ACEI Elevated troponin, likely from demand ischemia from COPD exacerbation - cont to trend troponin, - cont aspirin, statin - morphin as needed for pain Testicular swelling - obtained testicular ultrasound showed b/l hydrocele - f/u with urology outpt Atrial fibrillation on chronic anticoagulation - We'll continue home dose of Xalelto Dvt Px - no DVT prophylaxis needed as patient will be on xarelto. Subjective Date of service: 03/26/17 Principal diagnosis: sob Interval history: Still wheezing Objective - Constitutional Vitals: Vital Signs - 12hr 03/26/17 03/26/17 03/26/17 12:19 12:21 13:25 Temperature 98.6 F Pulse Rate 70 Pulse Rate [ 76 Anterior Bilateral Throughout] Respiratory 18 Rate Respiratory 18 Rate [Anterior Bilateral Throughout] Blood Pressure 129/87 O2 Sat by Pulse 97 Oximetry 03/26/17 03/26/17 03/26/17 14:00 17:54 17:56 Temperature Pulse Rate 72 Pulse Rate [ 72 73 Anterior Bilateral Throughout] Respiratory Rate Respiratory 18 18 Rate [Anterior Bilateral Throughout] Blood Pressure O2 Sat by Pulse 99 Oximetry General appearance: Present: no acute distress, well-nourished - EENT Eyes: PERRL, EOM intact ENT: hearing intact, clear oral mucosa Ears: bilateral: normal - Neck Neck: supple, normal ROM - Respiratory Respiratory effort: normal Respiratory: bilateral: CTA - Breasts Breasts: normal - Cardiovascular Rhythm: regular Heart Sounds: Present: S1 & S2. Absent: gallop, rub Extremities: pulses intact, No edema, normal color, Full ROM - Gastrointestinal General gastrointestinal: Present: soft, non-tender, non-distended, normal bowel sounds - Genitourinary Male genitourinary: normal - Integumentary Integumentary: clear, warm, dry - Musculoskeletal Musculoskeletal: 1, strength equal bilaterally - Neurologic Neurologic: moves all extremities - Psychiatric Psychiatric: memory intact, appropriate mood/affect, intact judgment & insight - Labs CBC & Chem 7: 03/24/17 05:35 03/25/17 05:46
[2017-03-27] MEDS: DUONEB *Not for PRN Use IH SCH ×4 (01:00→21:03)
[2017-03-27] MEDS: MORPHINE IV PRN ×3 (04:27→22:30)
[2017-03-27] MEDS: BROVANA NEBU IH SCH ×2 (07:50→21:04)
[2017-03-27] MEDS: PULMICORT IH SCH ×2 (07:50→21:03)
[2017-03-27] MEDS ORDERED: PROVENTIL IH PRN (08:00)
[2017-03-27] MEDS: LASIX PO SCH (09:48)
[2017-03-27] MEDS: LANOXIN PO SCH (09:48)
[2017-03-27] MEDS: ULTRAM PO PRN ×2 (09:48→16:00)
[2017-03-27] MEDS: ASPIRIN PO SCH (09:48)
[2017-03-27] MEDS: COZAAR PO SCH (09:48)
[2017-03-27] MEDS: ZYLOPRIM PO SCH (09:49)
[2017-03-27] MEDS: LOPRESSOR PO SCH ×2 (09:49→22:29)
[2017-03-27] MEDS: LEVAQUIN 750MG/150ML 750 MG/150 ML BAG IV SCH (09:59)
--- NOTE | 2017-03-27 10:42 | Progress Note ---
Assessment and Plan Currently stable cardiac status. Cont present cardiac regimen. Interrogate AICD. The patient has been seen in conjunction with Dr. Callahan who agrees with the assessment and plan of care. - Patient Problems (1) COPD with exacerbation Current Visit: Yes Status: Acute (2) Atypical chest pain Onset Date: 06/03/14 Current Visit: Yes Status: Acute (3) Chronic systolic heart failure Current Visit: Yes Status: Chronic (4) Non-ischemic cardiomyopathy Current Visit: Yes Status: Chronic (5) ICD (implantable cardioverter-defibrillator) in place Current Visit: Yes Status: Chronic (6) CAD (coronary artery disease) Current Visit: Yes Status: Chronic Qualifiers: Coronary Disease-Associated Artery/Lesion type: [place] artery [place] vs. transplanted heart: N Associated angina: A (7) Paroxysmal atrial fibrillation Current Visit: Yes Status: Chronic (8) Elevated troponin Onset Date: 10/01/13 Current Visit: No Status: Acute (9) HTN (hypertension) Onset Date: 12/01/13 Current Visit: Yes Status: Chronic Qualifiers: Hypertension type: essential hypertension Qualified Code(s): I10 - Essential (primary) hypertension (10) Hydrocele of testis Current Visit: Yes Status: Acute Subjective Date of service: 03/27/17 Principal diagnosis: sob Interval history: Pt resting comfortably in bed, c/o wheezing and coughing. VSS. Awaiting AICD interrogation today. Objective Last Vital Signs Temp 97.6 F 03/27/17 05:26 Pulse 70 03/27/17 08:05 Resp 20 03/27/17 08:05 BP 146/90 03/27/17 05:26 Pulse Ox 99 03/27/17 07:53 - Physical Examination General: No Apparent Distress HEENT: Positive: PERRL, EOMI Neck: Positive: neck supple Cardiac: Positive: irregularly irregular, S1/S2 Lungs: Positive: Wheezes (diffuse), Rhonchi Neuro: Positive: Grossly Intact Abdomen: Positive: Soft, Active Bowel Sounds. Negative: Tender, Distended /Rectal: Other (testicular swelling) Skin: Positive: Clear Extremities: Present: normal. Absent: edema - Imaging and Cardiology Cardiac cath: report reviewed (05/2016 normal coronary severe LV dysfunction) - Telemetry EKG Rhythm: Atrial Fibrillation
[2017-03-27] MEDS: XARELTO PO SCH ×2 (16:06→17:30)
--- NOTE | 2017-03-27 20:24 | Progress Note ---
Assessment and Plan Assessment and plan: Acute on chronic respiratory failure - We'll continue to monitor the patient to telemetry - likely from COPD exacerbation COPD with acute exacerbation - Will provide scheduled nebulizers and breathing treatment - Placed on empiric steroid and antibiotic - will follow sputum culture, chest x-ray was unremarkable - continue supplemental oxygen to keep oxygen saturation above 92%, and BiPAP as needed - Consider to consult pulmonary if no improvement Acute on Chronic systolic heart failure with systolic dysfunction, - We will resume home medications, monitor BP - Cardiology consult placed for systolic dysfunction - cont lasix po, beta robert changed to lopressor Hypertension, well controlled - resumed home meds but lowered the dose of BB and ACEI Elevated troponin, likely from demand ischemia from COPD exacerbation - cont to trend troponin, - cont aspirin, statin - morphin as needed for pain Testicular swelling - obtained testicular ultrasound showed b/l hydrocele - f/u with urology outpt Atrial fibrillation on chronic anticoagulation - We'll continue home dose of Xalelto Dvt Px - no DVT prophylaxis needed as patient will be on xarelto. Hospitalist Physical - Constitutional Vitals: Temp Pulse Resp BP Pulse Ox 97.7 F 68 18 110/73 97 03/27/17 18:00 03/27/17 18:00 03/27/17 18:00 03/27/17 18:00 03/27/17 18:00 General appearance: Present: no acute distress, well-nourished Results - Labs CBC & Chem 7: 03/24/17 05:35 03/25/17 05:46 Labs: Laboratory Last Values WBC 5.9 K/mm3 (4.5-11.0) 03/24/17 05:35 RBC 4.70 M/mm3 (3.65-5.03) 03/24/17 05:35 Hgb 14.5 gm/dl (11.8-15.2) 03/24/17 05:35 Hct 44.2 % (35.5-45.6) 03/24/17 05:35 MCV 94 fl (84-94) 03/24/17 05:35 MCH 31 pg (28-32) 03/24/17 05:35 MCHC 33 % (32-34) 03/24/17 05:35 RDW 16.3 % (13.2-15.2) H 03/24/17 05:35 Plt Count 156 K/mm3 (140-440) 03/24/17 05:35 Lymph % (Auto) 16.6 % (13.4-35.0) 03/24/17 05:35 [place] % (Auto) 5.7 % (0.0-7.3) 03/24/17 05:35 Eos % (Auto) 1.0 % (0.0-4.3) 03/24/17 05:35 Baso % (Auto) 0.6 % (0.0-1.8) 03/24/17 05:35 Lymph # 1.0 K/mm3 (1.2-5.4) L 03/24/17 05:35 [place] # 0.3 K/mm3 (0.0-0.8) 03/24/17 05:35 Eos # 0.1 K/mm3 (0.0-0.4) 03/24/17 05:35 Baso # 0.0 K/mm3 (0.0-0.1) 03/24/17 05:35 Seg Neutrophils % 76.1 % (40.0-70.0) H 03/24/17 05:35 Seg Neutrophils # 4.5 K/mm3 (1.8-7.7) 03/24/17 05:35 Sodium 137 mmol/L (137-145) 03/25/17 05:46 Potassium 4.8 mmol/L (3.6-5.0) 03/25/17 05:46 Chloride 97.4 mmol/L (98-107) L 03/25/17 05:46 Carbon Dioxide 28 mmol/L (22-30) 03/25/17 05:46 Anion Gap 16 mmol/L 03/25/17 05:46 BUN 23 mg/dL (9-20) H 03/25/17 05:46 Creatinine 0.8 mg/dL (0.8-1.5) 03/25/17 05:46 Estimated GFR > 60 ml/min 03/25/17 05:46 BUN/Creatinine Ratio 28.75 % 03/25/17 05:46 Glucose 119 mg/dL (75-100) H 03/25/17 05:46 Calcium 8.2 mg/dL (8.4-10.2) L 03/25/17 05:46 Magnesium 2.10 mg/dL (1.7-2.3) 03/24/17 11:52 Troponin T 0.028 ng/mL (0.00-0.029) 03/25/17 05:46 NT-Pro-B Natriuret Pep 1573 pg/mL (0-900) H 03/24/17 05:35 Triglycerides 75 mg/dL (2-149) 03/24/17 05:35 Cholesterol 177 mg/dL (50-199) 03/24/17 05:35 LDL Cholesterol Direct 101 mg/dL (50-130) 03/24/17 05:35 HDL Cholesterol 61 mg/dL (40-59) H 03/24/17 05:35 Cholesterol/HDL Ratio 2.90 % 03/24/17 05:35
[2017-03-28] MEDS: DUONEB *Not for PRN Use IH SCH ×4 (02:35→21:07)
[2017-03-28] MEDS: ULTRAM PO PRN ×3 (03:20→21:47)
[2017-03-28] MEDS: BROVANA NEBU IH SCH ×2 (07:31→21:12)
[2017-03-28] MEDS: PULMICORT IH SCH ×2 (07:31→21:07)
[2017-03-28] MEDS: LEVAQUIN 750MG/150ML 750 MG/150 ML BAG IV SCH (09:49)
[2017-03-28] MEDS: COZAAR PO SCH (09:50)
[2017-03-28] MEDS: LOPRESSOR PO SCH ×2 (09:50→21:40)
[2017-03-28] MEDS: ZYLOPRIM PO SCH (09:50)
[2017-03-28] MEDS: ASPIRIN PO SCH (09:50)
[2017-03-28] MEDS: LASIX PO SCH (09:50)
[2017-03-28] MEDS: LANOXIN PO SCH (09:50)
--- NOTE | 2017-03-28 12:16 | Progress Note ---
Assessment and Plan Currently stable cardiac status. Cont present cardiac regimen. Interrogate AICD. The patient has been seen in conjunction with Dr. Barger who agrees with the assessment and plan of care. - Patient Problems (1) COPD with exacerbation Current Visit: Yes Status: Acute (2) Atypical chest pain Onset Date: 06/03/14 Current Visit: Yes Status: Acute (3) Chronic systolic heart failure Current Visit: Yes Status: Chronic (4) Non-ischemic cardiomyopathy Current Visit: Yes Status: Chronic (5) ICD (implantable cardioverter-defibrillator) in place Current Visit: Yes Status: Chronic (6) CAD (coronary artery disease) Current Visit: Yes Status: Chronic Qualifiers: Coronary Disease-Associated Artery/Lesion type: [place] artery [place] vs. transplanted heart: N Associated angina: A (7) Paroxysmal atrial fibrillation Current Visit: Yes Status: Chronic (8) Elevated troponin Onset Date: 10/01/13 Current Visit: No Status: Acute (9) HTN (hypertension) Onset Date: 12/01/13 Current Visit: Yes Status: Chronic Qualifiers: Hypertension type: essential hypertension Qualified Code(s): I10 - Essential (primary) hypertension (10) Hydrocele of testis Current Visit: Yes Status: Acute Subjective Date of service: 03/28/17 Principal diagnosis: sob Interval history: Pt resting comfortably in bed, SOB improving. VSS. Awaiting AICD interrogation. Objective Last Vital Signs Temp 97.7 F 03/28/17 07:52 Pulse 70 03/28/17 10:00 Resp 20 03/28/17 10:00 BP 128/85 03/28/17 07:52 Pulse Ox 96 03/28/17 10:00 - Physical Examination General: No Apparent Distress HEENT: Positive: PERRL, EOMI Neck: Positive: neck supple Cardiac: Positive: Reg Rate and Rhythm, S1/S2 Lungs: Positive: Wheezes, Rhonchi Neuro: Positive: Grossly Intact Abdomen: Positive: Soft, Active Bowel Sounds. Negative: Tender, Distended /Rectal: Other (testicular swelling) Skin: Positive: Clear Extremities: Present: normal. Absent: edema - Imaging and Cardiology Cardiac cath: report reviewed (05/2016 normal coronary severe LV dysfunction)
[2017-03-28] MEDS: MORPHINE IV PRN (15:05)
[2017-03-28] MEDS: XARELTO PO SCH (18:09)
--- NOTE | 2017-03-28 19:37 | Progress Note ---
Assessment and Plan Assessment and plan: Acute on chronic respiratory failure - We'll continue to monitor the patient to telemetry - likely from COPD exacerbation COPD with acute exacerbation - Will provide scheduled nebulizers and breathing treatment - Placed on empiric steroid and antibiotic - will follow sputum culture, chest x-ray was unremarkable - continue supplemental oxygen to keep oxygen saturation above 92%, and BiPAP as needed - Consider to consult pulmonary if no improvement Acute on Chronic systolic heart failure with systolic dysfunction, - We will resume home medications, monitor BP - Cardiology consult placed for systolic dysfunction - cont lasix po, beta robert changed to lopressor Hypertension, well controlled - resumed home meds but lowered the dose of BB and ACEI Elevated troponin, likely from demand ischemia from COPD exacerbation - cont to trend troponin, - cont aspirin, statin - morphin as needed for pain Testicular swelling - obtained testicular ultrasound showed b/l hydrocele - f/u with urology outpt Atrial fibrillation on chronic anticoagulation - We'll continue home dose of Xalelto Dvt Px - no DVT prophylaxis needed as patient will be on xarelto. History Interval history: feeling better, SOB improved, not wheezing Hospitalist Physical - Constitutional Vitals: Temp Pulse Resp BP Pulse Ox 98.0 F 70 18 130/87 98 03/28/17 17:00 03/28/17 17:00 03/28/17 17:00 03/28/17 17:00 03/28/17 17:00 General appearance: Present: no acute distress, well-nourished - EENT Eyes: Present: PERRL, EOM intact - Neck Neck: Present: supple, normal ROM. Absent: masses or JVD - Respiratory Respiratory effort: normal Respiratory: bilateral: diminished, negative: rhonchi, wheezing - Cardiovascular Rhythm: regular Heart Sounds: Present: S1 & S2. Absent: systolic murmur - Extremities Extremities: no ischemia - Abdominal General gastrointestinal: soft, non-tender, non-distended, normal bowel sounds - Psychiatric Psychiatric: cooperative - Neurologic Neurologic: CNII-XII intact, no focal deficits - Additional findings Additional findings: - enlarged scrotum Results - Labs CBC & Chem 7: 03/24/17 05:35 03/25/17 05:46 Labs: Laboratory Last Values WBC 5.9 K/mm3 (4.5-11.0) 03/24/17 05:35 RBC 4.70 M/mm3 (3.65-5.03) 03/24/17 05:35 Hgb 14.5 gm/dl (11.8-15.2) 03/24/17 05:35 Hct 44.2 % (35.5-45.6) 03/24/17 05:35 MCV 94 fl (84-94) 03/24/17 05:35 MCH 31 pg (28-32) 03/24/17 05:35 MCHC 33 % (32-34) 03/24/17 05:35 RDW 16.3 % (13.2-15.2) H 03/24/17 05:35 Plt Count 156 K/mm3 (140-440) 03/24/17 05:35 Lymph % (Auto) 16.6 % (13.4-35.0) 03/24/17 05:35 [place] % (Auto) 5.7 % (0.0-7.3) 03/24/17 05:35 Eos % (Auto) 1.0 % (0.0-4.3) 03/24/17 05:35 Baso % (Auto) 0.6 % (0.0-1.8) 03/24/17 05:35 Lymph # 1.0 K/mm3 (1.2-5.4) L 03/24/17 05:35 [place] # 0.3 K/mm3 (0.0-0.8) 03/24/17 05:35 Eos # 0.1 K/mm3 (0.0-0.4) 03/24/17 05:35 Baso # 0.0 K/mm3 (0.0-0.1) 03/24/17 05:35 Seg Neutrophils % 76.1 % (40.0-70.0) H 03/24/17 05:35 Seg Neutrophils # 4.5 K/mm3 (1.8-7.7) 03/24/17 05:35 Sodium 137 mmol/L (137-145) 03/25/17 05:46 Potassium 4.8 mmol/L (3.6-5.0) 03/25/17 05:46 Chloride 97.4 mmol/L (98-107) L 03/25/17 05:46 Carbon Dioxide 28 mmol/L (22-30) 03/25/17 05:46 Anion Gap 16 mmol/L 03/25/17 05:46 BUN 23 mg/dL (9-20) H 03/25/17 05:46 Creatinine 0.8 mg/dL (0.8-1.5) 03/25/17 05:46 Estimated GFR > 60 ml/min 03/25/17 05:46 BUN/Creatinine Ratio 28.75 % 03/25/17 05:46 Glucose 119 mg/dL (75-100) H 03/25/17 05:46 Calcium 8.2 mg/dL (8.4-10.2) L 03/25/17 05:46 Magnesium 2.10 mg/dL (1.7-2.3) 03/24/17 11:52 Troponin T 0.028 ng/mL (0.00-0.029) 03/25/17 05:46 NT-Pro-B Natriuret Pep 1573 pg/mL (0-900) H 03/24/17 05:35 Triglycerides 75 mg/dL (2-149) 03/24/17 05:35 Cholesterol 177 mg/dL (50-199) 03/24/17 05:35 LDL Cholesterol Direct 101 mg/dL (50-130) 03/24/17 05:35 HDL Cholesterol 61 mg/dL (40-59) H 03/24/17 05:35 Cholesterol/HDL Ratio 2.90 % 03/24/17 05:35
[2017-03-29] MEDS: DUONEB *Not for PRN Use IH SCH ×2 (02:30→08:57)
[2017-03-29] MEDS: ULTRAM PO PRN (05:48)
[2017-03-29] MEDS: PULMICORT IH SCH (08:57)
[2017-03-29] MEDS: BROVANA NEBU IH SCH (08:57)
--- NOTE | 2017-03-29 09:07 | Discharge Summary ---
Providers - Providers Date of Admission: 03/24/17 10:46 Date of discharge: 03/29/17 Attending physician: SALMA GRAHAM 03/24/17 10:49 Consult to Physician [CONS] Routine Consulting Provider: DAYSI PURI Reason For Exam: elevated troponin Place consult to:: tactical air defense controller cardiology Notified:: Y Was contact made?: Yes If yes, spoke with:: DR PURI Time called:: 11:08 Primary care physician: CELEBR[facility] MANAGER Hospitalization Reason for admission: SOB Condition: Stable Pertinent studies: CXR Testicular [facility] course: Acute on chronic respiratory failure - We'll continue to monitor the patient to telemetry - likely from COPD exacerbation COPD with acute exacerbation - Will provide scheduled nebulizers and breathing treatment - Placed on empiric steroid and antibiotic - will follow sputum culture, chest x-ray was unremarkable - continue supplemental oxygen to keep oxygen saturation above 92%, and BiPAP as needed - Consider to consult pulmonary if no improvement Acute on Chronic systolic heart failure with systolic dysfunction, - We will resume home medications, monitor BP - Cardiology consult placed for systolic dysfunction - cont lasix po, beta robert changed to lopressor Hypertension, well controlled - resumed home meds but lowered the dose of BB and ACEI Elevated troponin, likely from demand ischemia from COPD exacerbation - cont to trend troponin, - cont aspirin, statin - morphin as needed for pain Testicular swelling - obtained testicular ultrasound showed b/l hydrocele - f/u with urology outpt Atrial fibrillation on chronic anticoagulation - We'll continue home dose of Xalelto Disposition: DC-01 TO HOME OR SELFCARE Time spent for discharge: 35 min Core Measure Documentation - Palliative Care Palliative Care/ Comfort Measures: Not Applicable - Core Measures Any of the following diagnoses?: heart failure - Heart Failure Discharge Requirements WOLFGANG/ARB for LVSD if EF <40%: Yes Beta robert at discharge: Yes Exam - Physical Exam Narrative exam: Seen and examined: - Constitutional Vitals: Temp Pulse Resp BP Pulse Ox 98.3 F 71 18 129/82 97 03/29/17 08:27 03/29/17 08:57 03/29/17 08:57 03/29/17 04:40 03/29/17 08:59 General appearance: Present: no acute distress, well-nourished - EENT Eyes: Present: PERRL, EOM intact - Neck Neck: Present: supple, normal ROM. Absent: masses or JVD - Respiratory Respiratory effort: normal Respiratory: bilateral: diminished, negative: rhonchi, wheezing - Cardiovascular Rhythm: irregularly irregular Heart Sounds: Present: S1 & S2. Absent: systolic murmur - Extremities Extremities: no ischemia - Abdominal General gastrointestinal: Present: soft, non-tender, non-distended, normal bowel sounds - Psychiatric Psychiatric: cooperative - Neurologic Neurologic: CNII-XII intact, no focal deficits - Additional findings Additional findings: - enlarged scrotum Plan Activity: advance as tolerated, fall precautions Diet: low cholesterol, low salt Follow up with: PRIMARY CARE, [Primary Care Provider] - 3-5 Days DAYSI PURI MD [Staff Physician] - 7 Days CHERYL LA MD [Staff Physician] - 7 Days Prescriptions: Allopurinol [Zyloprim] 400 mg PO QDAY #60 tablet Aspirin EC [Aspirin Enteric Coated TAB] 81 mg PO QDAY #30 tablet. AtorvaSTATin [Lipitor] 40 mg PO DAILY #30 tablet Carvedilol [Coreg] 25 mg PO BID #60 tablet Digoxin 250 mcg PO DAILY #30 tablet Fluticasone/Salmeterol [Advair Diskus 500-50 mcg] 1 puff IH BID #1 disk.w.[email or web address] Furosemide [Lasix TAB] 40 mg PO DAILY #30 tablet Losartan [Cozaar] 50 mg PO QDAY #30 tablet predniSONE [Deltasone] 20 mg PO QDAY #10 tab Rivaroxaban [Xarelto] 20 mg PO QDAY #30 tablet traMADol [Ultram 50 MG tab] 50 mg PO Q8HR PRN #90 tablet PRN Reason: Pain Ipratropium/Albuterol Sulfate [DUONEB *Not for PRN Use*] 1 ampul IH TIDRT #1 ampul.neb
[2017-03-29] MEDS: ASPIRIN PO SCH (09:49)
[2017-03-29] MEDS: LASIX PO SCH (09:49)
[2017-03-29] MEDS: LANOXIN PO SCH (09:50)
[2017-03-29] MEDS: ZYLOPRIM PO SCH (09:50)
[2017-03-29] MEDS: LOPRESSOR PO SCH (09:53)
[2017-03-29] MEDS: COZAAR PO SCH (09:54)
[2017-03-29 09:55] VITALS: BP 129/81
[2017-03-29] MEDS ORDERED: LEVAQUIN PO SCH (10:00)
[2017-03-29] MEDS: MORPHINE IV PRN (10:02)
[2017-03-29] MEDS ORDERED: TRIPLE ANTIBIOTIC TP SCH (14:00)
== END 2017-03-29 11:42 | disposition home or self-care (01) | DRG 280 ==
LOC: ED 04:47 → 4A 10:46
PROVIDERS: ADMIT Hospitalist; ATTEND Internal Medicine
PROC: 5A09357 Assistance with Respiratory Ventilation, Less than 24 Consecutive Hours, Continuous Positive Airway Pressure (ICD-10-PCS; principal; 2017-03-24)
DX: I11.0 Hypertensive heart disease with heart failure (principal); J96.20 Acute and chronic respiratory failure, unspecified whether with hypoxia or hypercapnia; I21.4 Non-ST elevation (NSTEMI) myocardial infarction; J44.1 Chronic obstructive pulmonary disease with (acute) exacerbation; I50.23 Acute on chronic systolic (congestive) heart failure; I42.9 Cardiomyopathy, unspecified; G43.909 Migraine, unspecified, not intractable, without status migrainosus; M10.9 Gout, unspecified; N50.89 Other specified disorders of the male genital organs; E78.5 Hyperlipidemia, unspecified; I25.10 Atherosclerotic heart disease of native coronary artery without angina pectoris; N43.2 Other hydrocele; I48.0 Paroxysmal atrial fibrillation; Z88.0 Allergy status to penicillin; Z79.899 Other long term (current) drug therapy; Z86.718 Personal history of other venous thrombosis and embolism; Z86.711 Personal history of pulmonary embolism; Z98.61 Coronary angioplasty status; Z87.891 Personal history of nicotine dependence; Z82.49 Family history of ischemic heart disease and other diseases of the circulatory system; Z95.810 Presence of automatic (implantable) cardiac defibrillator
CPT/HCPCS: 36415; 71010; 80048; 80061; 83735; 83880; 84484; 85025; 87205; 93005; 93010; 93975; 94640; 94760; 96374; 96375; A9270-GY; J1940; J1956; J2270; J2405; J2920